=== PATIENT | female | born 1945 | race Caucasian/White ===

== ENCOUNTER 2023-08-04 11:29 | Outpatient (AMB) | payer SELFPAY ==
--- NOTE | 2023-08-04 11:38 | MHC.OFFVISCO ---
Intake Intake Visit Reasons: Anticoagulation It Associate Required: No Allergies pantoprazole [From Protonix] Allergy (Severe, Verified 08/04/23 11:34) Palpitations Is last menstrual period known: No Post menopausal: Yes Patient : No (2 daughters and 5 grandchildren) Nursing Note Pt came 2 hours early to appt- able to complete 1/2 - will discuss no show policy next visit able to obtain med hx, review meds, and ssx of bleeding and clotting, education folder given, [facility] will complete education next visit INR: 1.6 out of therapeutic range- she ate more broccoli than usual Medications and supplements reviewed Diet: Foods that can effect the INR discussed and food list reviewed with good understanding, will review next visit Denies any signs and symptoms of bleeding or bruising or clotting. Bleeding, bruising, clotting discussed Nutritional guidance given - avoid greens today and tomorrow, eat foods to help raise the INR Dose: current dose 2.5mg x 5 days/ week- osmani increase dose to 2.5mg x 6 days. 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 Illness/Depression: Yes (pt states no - md hx states yes ) Is last menstrual period known: No Post menopausal: Yes Patient : No (2 daughters and 5 grandchildren) Surgeries: gladder bladder removal 64 years old Afib age 50s after reaction to medication protonix Other: A+O x 3, resp easy and unlabored, has left facial droop from injury in in her younger years, no s/sx of bleeding or bruising or clotting. walks daily and appears much younger than her age. Anti-Coag. Education Record Teaching Recipient: Patient What is the easiest way to learn: Reading, Listening and Education Packet It Associate Required: No Readiness To Learn: Excellent Teaching Methods: Discussion, Handout, Protocol and Teach Back Education Intervention/Brief Description of Teaching 1. Able to state reason for taking Warfarin: Yes 2. Able to state Pain Management techniques: Yes 3. Able to state action of Warfarin.: Yes Able to state current dose, pill color, how and when Warfarin to be taken: Yes Able to identify signs of bleeding &/or clotting: Yes 4. Able to identify need to keep diet consistent in regard to vitamin K intake: Yes Able to state restriction on alcohol: Yes 5. Able to state need for compliance with PT/INR testing: Yes Describes rationale for carrying ID and wearing Medic Alert bracelet: Yes Patient instructed to monitor for excess bruising or signs/symptoms of clotting or bleeding: Yes 6. Able to state that there are drugs that interact with Warfin: Yes 7. Able to state the need to seek medical attention when illness/injury occur.: Yes Describes the need to avoid activities with high risk of injury: Yes 8. Able to state duration of treatment: Yes 9. Demonstrates understanding of notifying all providers of pending dental surgical, or other invasive procedures: Yes 10. Able to state Home Care instructions Questionnaires HAS-BLED Does the patient had uncontrolled Hypertension?: No Does the patient have renal disease?: No Does the patient have liver disease?: No Does the patient have a history of stroke?: No Has the patient had major bleeding or predisposition to bleeding?: No Does the patient have labile INRs?: Yes Is the patient over 65 years of age?: Yes Is the patient on medications that gives them a predisposition to bleeding?: Yes Does the patient use alcohol?: No HAS-BLED Score: 3 CHADSVASC Age: 75 or over Gender: Female Does the patient have a history of CHF?: No Does the patient have a history of Hypertension?: Yes Does the patient have a history of Stroke/TIA/Thromboembolism?: No Does the patient have a history of Vascular Disease (prior RI, PAD or aortic plaque)?: No Does the patient have a history of Diabetes?: No CHADS VACS Score: 4 Gibson Prediction Score Rsk VTE Active Cancer: No Previous VTE, excluding superficial vein thrombosis: No Reduced mobility: No Already known Thrombophilic Condition: No With-in last month Trauma and/or Surgery: No Elderly 70 year or older: Yes Heart and/or Respiratory Failure: No Acute Myocardial infarction and/or Ischemic Stroke: No Acute Infection and/or Rheumatologic Disorder: No Obesity (BMI 30 or greater): No Ongoing Hormonal Treatment: No Score: 1 Gibson Score less than 4; Low Risk of VTE Gibson Score 4 or greater; High Risk of VTE Coding Level of Care Code New Patient Level 2 Diagnoses Current use of anticoagulant therapy Z79.01 Time Spent (min) 60 Comment insuarnce information obtained + education Results AMB INR Fingerstick AMB INR Fingerstick 1.6 Last Edit by Archana Marvin RN on 08/04/23 11:53 MANUAL ENTRY Assessment & Plan Assessment & Plan (1) Current use of anticoagulant therapy: Code(s): 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
[2023-08-05 11:14] LABS: Prothrombin Time Whole Bld POC 19.5 sec (11.1-13.5); ~PT, ~INR - Anti Coag Clinic 1.6 (0.9-1.1)
== END 2023-08-04 15:55 | disposition home or self-care (01) ==
LOC: HO.ACS 11:29
PROVIDERS: PCP Student in an Organized Health Care Education/Training Program; Visit Provider Internal Medicine
DX: Z79.01 Long term (current) use of anticoagulants (principal)

== ENCOUNTER → 2023-08-04 11:29 | Outpatient (BNVA) | payer MEDICARE, MEDICAID, SELFPAY | PROVIDERS: PCP Student in an Organized Health Care Education/Training Program; Visit Provider Internal Medicine | DX: I48.0 Paroxysmal atrial fibrillation (principal); Z79.01 Long term (current) use of anticoagulants; Z51.81 Encounter for therapeutic drug level monitoring | CPT/HCPCS: 85610; 99202 ==

== ENCOUNTER 2023-08-10 13:02 | Outpatient (AMB) | payer MEDICAID, OTHER, SELFPAY ==
[2023-08-10 13:11] LABS: Prothrombin Time Whole Bld POC 25.3 sec (11.1-13.5); ~PT, ~INR - Anti Coag Clinic 2.1 (0.9-1.1)
--- NOTE | 2023-08-10 13:59 | MHC.OFFVISCO ---
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 Medications and supplements reviewed- STOPPING AMILODIPINE AND STARTING CLONIDINE Completed Education booklet reviewed and VS obtained and patient agreements signed and pt verb understanding of instructions given. No changes in health, diet, medications, or supplements, Denies any signs and symptoms of bleeding or bruising or clotting. Bleeding, bruising, clotting discussed Nutritional guidance given - review food list weekly, eat a mix of fruits and vegetables Dose: 2.5mg daily x 6 days/ week - may need 7 days/ week F/U INR: 1 week Patient verbalizes understanding of instructions given Anti-Coag Initial Assessment Social Hx Patient Tobacco Use Status: Never used Tobacco alcohol intake: never Cardiovascular Hx: HTN, Arrhythmias, Rheumatic Fever (as child), Varicose Veins (no problems) and Other (endocarditis) Lung Disease HX: DVT/PE Musculoskeletal Hx: Other (left facial droop from injury in her younger years ) GI Hx: Hemorrhoids (small amt ) and Other (cholecystectomy) Cancer HX: No Psych. 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
[2023-08-10 15:26] VITALS: BP 118/72
[2023-08-10 15:27] VITALS: PULSE 72
== END 2023-08-10 13:58 | disposition home or self-care (01) ==
LOC: HO.ACS 13:02
PROVIDERS: PCP Student in an Organized Health Care Education/Training Program; Visit Provider Internal Medicine
DX: Z79.01 Long term (current) use of anticoagulants (principal)

== ENCOUNTER → 2023-08-10 13:02 | Outpatient (BNVA) | payer OTHER, MEDICAID, SELFPAY | PROVIDERS: PCP Student in an Organized Health Care Education/Training Program; Visit Provider Internal Medicine | DX: I48.20 Chronic atrial fibrillation, unspecified (principal); Z79.01 Long term (current) use of anticoagulants; Z51.81 Encounter for therapeutic drug level monitoring | CPT/HCPCS: 85610; 99211 ==

== ENCOUNTER 2023-08-18 13:32 | Outpatient (AMB) | payer OTHER, SELFPAY ==
[2023-08-18 13:38] LABS: Prothrombin Time Whole Bld POC 38.2 sec (11.1-13.5); ~PT, ~INR - Anti Coag Clinic 3.2 (0.9-1.1)
--- NOTE | 2023-08-18 13:49 | MHC.OFFVISCO ---
Intake Intake Visit Reasons: Anticoagulation Allergies pantoprazole [From Protonix] Allergy (Severe, Verified 08/18/23 13:33) Palpitations Medication List - Last Reconciled 08/18/23 by Archana Marvin RN amlodipine 2.5 mg PO DAILY cholecalciferol (vitamin D3) 25 mcg PO DAILY clonidine 1 patch topical QWEEK metoprolol succinate ER (Toprol XL) 50 mg PO DAILY warfarin See Protocol 5 mg orally 2.5mg x 5 days / week; Nursing Note Pt had unusual bill for [facility] insurance was not in for some reason - finance office assisting with bill today INR 3.2?? out of therapeutic range Medications and supplements reviewed Patient status: Pt is well, she has not had her usual greens. will resume her weekly broccoli Medications or supplements: no changes Diet: good Denies any signs and symptoms of bleeding or clotting or unusual bruising Bleeding, bruising, clotting discussed Nutritional guidance given: review food list weekly, resume weekly greens Dose: 2.5mg x 6 days/ hold x 1 day F/U INR Date : 2 weeks ?? Patient verbalizing understanding of instructions given. Anti-Coag Initial Assessment Social Hx Patient Tobacco Use Status: Never used Tobacco alcohol intake: never Cardiovascular Hx: HTN, Arrhythmias, Rheumatic Fever (as child), Varicose Veins (no problems) and Other (endocarditis) Lung Disease HX: DVT/PE Musculoskeletal Hx: Other (left facial droop from injury in her younger years ) GI Hx: Hemorrhoids (small amt ) and Other (cholecystectomy) Cancer HX: No Psych. Illness/Depression: Yes (pt states no - md hx states yes ) Coding Level of Care Code Est Patient Level 1 Diagnoses Current use of anticoagulant therapy Z79.01 Assessment & Plan Assessment & Plan (1) Current use of anticoagulant therapy: Code(s): Z79.01 - alf (current) use of anticoagulants Category: Medical
== END 2023-08-18 13:52 | disposition home or self-care (01) ==
LOC: HO.ACS 13:32
PROVIDERS: PCP Student in an Organized Health Care Education/Training Program; Visit Provider Internal Medicine
DX: Z79.01 Long term (current) use of anticoagulants (principal)

== ENCOUNTER → 2023-08-18 13:32 | Outpatient (BNVA) | payer OTHER, SELFPAY | PROVIDERS: PCP Student in an Organized Health Care Education/Training Program; Visit Provider Internal Medicine | DX: I48.20 Chronic atrial fibrillation, unspecified (principal); Z51.81 Encounter for therapeutic drug level monitoring; Z79.01 Long term (current) use of anticoagulants | CPT/HCPCS: 85610; 99211 ==

== ENCOUNTER 2023-09-05 13:12 | Outpatient (AMB) | payer OTHER, SELFPAY ==
[2023-09-05 13:28] LABS: Prothrombin Time Whole Bld POC 35.2 sec (11.1-13.5); ~PT, ~INR - Anti Coag Clinic 2.9 (0.9-1.1)
--- NOTE | 2023-09-05 13:35 | MHC.OFFVISCO ---
Intake Intake Visit Reasons: Anticoagulation Allergies pantoprazole [From Protonix] Allergy (Severe, Verified 09/05/23 13:22) Palpitations Medication List - Last Reconciled 09/05/23 by Archana Marvin RN amlodipine 2.5 mg PO DAILY cholecalciferol (vitamin D3) 25 mcg PO DAILY clonidine 1 patch topical QWEEK metoprolol succinate ER (Toprol XL) 50 mg PO DAILY warfarin See Protocol 5 mg orally 2.5mg x 5 days / week; Nursing Note INR: 2.9 in therapeutic range Medications and supplements reviewed Ppt had sinus infection and was on antbx amoxicillin ( she was instructed to call with med changes) she held her warfarin x 1 day going back to her usual dose 2.5mg x 5 days holding wed and sat Denies any signs and symptoms of bleeding or bruising or clotting. Bleeding, bruising, clotting discussed Nutritional guidance given Dose: 2.5MG X 5 DAYS F/U INR: 2 weeks Patient verbalizes understanding of instructions given Anti-Coag Initial Assessment Social Hx Patient Tobacco Use Status: Never used Tobacco alcohol intake: never Cardiovascular Hx: HTN, Arrhythmias, Rheumatic Fever (as child), Varicose Veins (no problems) and Other (endocarditis) Lung Disease HX: DVT/PE Musculoskeletal Hx: Other (left facial droop from injury in her younger years ) GI Hx: Hemorrhoids (small amt ) and Other (cholecystectomy) Cancer HX: No Psych. 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
== END 2023-09-05 13:39 | disposition home or self-care (01) ==
LOC: HO.ACS 13:12
PROVIDERS: PCP Student in an Organized Health Care Education/Training Program; Visit Provider Internal Medicine
DX: Z79.01 Long term (current) use of anticoagulants (principal)

== ENCOUNTER → 2023-09-05 13:12 | Outpatient (BNVA) | payer OTHER, SELFPAY | PROVIDERS: PCP Student in an Organized Health Care Education/Training Program; Visit Provider Internal Medicine | DX: I48.20 Chronic atrial fibrillation, unspecified (principal); Z51.81 Encounter for therapeutic drug level monitoring; Z79.01 Long term (current) use of anticoagulants | CPT/HCPCS: 85610; 99211 ==

== ENCOUNTER 2023-09-20 13:34 | Outpatient (AMB) | payer OTHER, SELFPAY ==
--- NOTE | 2023-09-20 14:03 | MHC.OFFVISCO ---
Intake Intake Visit Reasons: Anticoagulation Allergies pantoprazole [From Protonix] Allergy (Severe, Verified 09/20/23 13:54) Palpitations Medication List - Last Reconciled 09/20/23 by Tonia Benitez RN amlodipine 2.5 mg PO DAILY cholecalciferol (vitamin D3) 25 mcg PO DAILY clonidine 1 patch topical QWEEK metoprolol succinate ER (Toprol XL) 50 mg PO DAILY warfarin See Protocol 5 mg orally 2.5mg x 5 days / week; Nursing Note INR: 3.0- in therapeutic range of 2-3 Medications and supplements reviewed- pt not taking clonidine patch due to issues with gas- instructed to notify md holloway pt states monitors blood pressure bid every day No changes in health, diet, medications, or supplements, Denies any signs and symptoms of bleeding or bruising or clotting. Bleeding, bruising, clotting discussed Nutritional guidance given - eat greens today Dose: 2.5mg x 5 F/U INR: 2 weeks Patient verbalizes understanding of instructions given Anti-Coag Initial Assessment Social Hx Patient Tobacco Use Status: Never used Tobacco alcohol intake: never Cardiovascular Hx: HTN, Arrhythmias, Rheumatic Fever (as child), Varicose Veins (no problems) and Other (endocarditis) Lung Disease HX: DVT/PE Musculoskeletal Hx: Other (left facial droop from injury in her younger years ) GI Hx: Hemorrhoids (small amt ) and Other (cholecystectomy) Cancer HX: No Psych. Illness/Depression: Yes (pt states no - md hx states yes ) Coding Level of Care Code Est Patient Level 1 Diagnoses Current use of anticoagulant therapy Z79.01 Assessment & Plan Assessment & Plan (1) Current use of anticoagulant therapy: Code(s): Z79.01 - intermediate (current) use of anticoagulants Category: Medical
[2023-09-20 14:05] LABS: Prothrombin Time Whole Bld POC 35.8 sec (11.1-13.5)
== END 2023-09-20 14:13 | disposition home or self-care (01) ==
LOC: HO.ACS 13:34
PROVIDERS: PCP Student in an Organized Health Care Education/Training Program; Visit Provider Internal Medicine
DX: Z79.01 Long term (current) use of anticoagulants (principal)

== ENCOUNTER → 2023-09-20 13:34 | Outpatient (BNVA) | payer OTHER, SELFPAY | PROVIDERS: PCP Student in an Organized Health Care Education/Training Program; Visit Provider Internal Medicine | DX: I48.20 Chronic atrial fibrillation, unspecified (principal); Z51.81 Encounter for therapeutic drug level monitoring; Z79.01 Long term (current) use of anticoagulants | CPT/HCPCS: 85610; 99211 ==

== ENCOUNTER 2023-10-04 13:01 | Outpatient (AMB) | payer OTHER, SELFPAY ==
[2023-10-04 13:29] LABS: Prothrombin Time Whole Bld POC 27.2 sec (11.1-13.5); ~PT, ~INR - Anti Coag Clinic 2.3 (0.9-1.1)
--- NOTE | 2023-10-04 13:29 | MHC.OFFVISCO ---
Intake Intake Visit Reasons: Anticoagulation Allergies pantoprazole [From Protonix] Allergy (Severe, Verified 10/04/23 13:22) Palpitations Medication List - Last Reconciled 10/04/23 by Tonia Benitez RN amlodipine 2.5 mg PO DAILY cholecalciferol (vitamin D3) 25 mcg PO DAILY clonidine 1 patch topical QWEEK metoprolol succinate ER (Toprol XL) 50 mg PO DAILY warfarin See Protocol 5 mg orally 2.5mg x 5 days / week; Nursing Note INR: 2.3- in therapeutic range of 2-3 Medications and supplements reviewed- not taking clonidine patch - box order person aware No changes in health, diet, medications, or supplements, Denies any signs and symptoms of bleeding or bruising or clotting. Bleeding, bruising, clotting discussed Nutritional guidance given Dose: cont same dosing 2.5mg x 5, holds on wed and sat pt ref warfarin pill strength change- states did not feel well on 2mg tablet F/U INR: pt req 3 weeks Patient verbalizes understanding of instructions given Anti-Coag Initial Assessment Social Hx Patient Tobacco Use Status: Never used Tobacco alcohol intake: never Cardiovascular Hx: HTN, Arrhythmias, Rheumatic Fever (as child), Varicose Veins (no problems) and Other (endocarditis) Lung Disease HX: DVT/PE Musculoskeletal Hx: Other (left facial droop from injury in her younger years ) GI Hx: Hemorrhoids (small amt ) and Other (cholecystectomy) Cancer HX: No Psych. 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
== END 2023-10-04 13:38 | disposition home or self-care (01) ==
LOC: HO.ACS 13:01
PROVIDERS: PCP Student in an Organized Health Care Education/Training Program; Visit Provider Internal Medicine
DX: Z79.01 Long term (current) use of anticoagulants (principal)

== ENCOUNTER → 2023-10-04 13:01 | Outpatient (BNVA) | payer OTHER, SELFPAY | PROVIDERS: PCP Student in an Organized Health Care Education/Training Program; Visit Provider Internal Medicine | DX: I48.20 Chronic atrial fibrillation, unspecified (principal); Z51.81 Encounter for therapeutic drug level monitoring; Z79.01 Long term (current) use of anticoagulants | CPT/HCPCS: 85610; 99211 ==

== ENCOUNTER 2023-10-25 13:03 | Outpatient (AMB) | payer OTHER, SELFPAY ==
[2023-10-25 13:10] LABS: Prothrombin Time Whole Bld POC 28.4 sec (11.1-13.5); ~PT, ~INR - Anti Coag Clinic 2.4 (0.9-1.1)
--- NOTE | 2023-10-25 13:17 | MHC.OFFVISCO ---
Intake Intake Visit Reasons: Anticoagulation Allergies pantoprazole [From Protonix] Allergy (Severe, Verified 10/25/23 13:04) Palpitations Medication List - Last Reconciled 10/25/23 by Beatriz Morrison RN amlodipine 2.5 mg PO DAILY cholecalciferol (vitamin D3) 25 mcg PO DAILY clonidine 1 patch topical QWEEK metoprolol succinate ER (Toprol XL) 50 mg PO DAILY warfarin See Protocol 5 mg orally 2.5mg x 5 days / week; Nursing Note INR: 2.4 in therapeutic range of 2-3 Medications and supplements reviewed: no changes No changes in health, diet, medications, or supplements, Denies any signs and symptoms of bleeding or bruising or clotting. Bleeding, bruising, clotting discussed Nutritional guidance given to continue to balance reds and greens Dose: resume usual dose of 2.5mg X 5 days but 0 on Tue and Tue F/U INR: 3 weeks Patient verbalizes understanding of instructions given Anti-Coag Initial Assessment Social Hx Patient Tobacco Use Status: Never used Tobacco alcohol intake: never Cardiovascular Hx: HTN, Arrhythmias, Rheumatic Fever (as child), Varicose Veins (no problems) and Other (endocarditis) Lung Disease HX: DVT/PE Musculoskeletal Hx: Other (left facial droop from injury in her younger years ) GI Hx: Hemorrhoids (small amt ) and Other (cholecystectomy) Cancer HX: No Psych. Illness/Depression: Yes (pt states no - md hx states yes ) Coding Level of Care Code Est Patient Level 1 Diagnoses Current use of anticoagulant therapy Z79.01 Results AMB INR Fingerstick AMB INR Fingerstick 2.4 Last Edit by Beatriz Morrison RN on 10/25/23 13:17 interface delay Assessment & Plan Assessment & Plan (1) Current use of anticoagulant therapy: Code(s): Z79.01 - [facility] (current) use of anticoagulants Category: Medical
== END 2023-10-25 13:21 | disposition home or self-care (01) ==
LOC: HO.ACS 13:03
PROVIDERS: PCP Student in an Organized Health Care Education/Training Program; Visit Provider Internal Medicine
DX: Z79.01 Long term (current) use of anticoagulants (principal)

== ENCOUNTER → 2023-10-25 13:03 | Outpatient (BNVA) | payer OTHER, SELFPAY | PROVIDERS: PCP Student in an Organized Health Care Education/Training Program; Visit Provider Internal Medicine | DX: I48.20 Chronic atrial fibrillation, unspecified (principal); Z51.81 Encounter for therapeutic drug level monitoring; Z79.01 Long term (current) use of anticoagulants | CPT/HCPCS: 85610; 99211 ==

== ENCOUNTER 2023-11-22 13:56 | Outpatient (AMB) | payer OTHER, SELFPAY ==
[2023-11-22 14:13] LABS: Prothrombin Time Whole Bld POC 41.8 sec (11.1-13.5); ~PT, ~INR - Anti Coag Clinic 3.5 (0.9-1.1)
--- NOTE | 2023-11-22 14:18 | MHC.OFFVISCO ---
Intake Intake Visit Reasons: Anticoagulation Allergies pantoprazole [From Protonix] Allergy (Severe, Verified 11/22/23 13:58) Palpitations Nursing Note INR 3.5?out of therapeutic range of 2-3 Pt states she took an extra dose this past week. She normally does not take any warfarin on Wednesdays and Saturdays but she took a dose this past Tuesday. Spoke to pt about having a pill box. She says she has one but doesn't use it and may start now. Medications and supplements reviewed Patient status: feels well Medications or supplements: no changes Diet: has been eating a lot of fruit lately Denies any signs and symptoms of bleeding or clotting or unusual bruising Bleeding, bruising, clotting discussed Nutritional guidance given: to have a serving of foods from the list that lowers the INR. Food list reviewed. Dose: hold today's dose of 2.5mg then resume usual dose of 2.5mg daily except for Wednesdays and Saturdays F/U INR Date : 2 weeks?? Patient verbalizing understanding of instructions given. Anti-Coag Initial Assessment Social Hx Patient Tobacco Use Status: Never used Tobacco alcohol intake: never Cardiovascular Hx: HTN, Arrhythmias, Rheumatic Fever (as child), Varicose Veins (no problems) and Other (endocarditis) Lung Disease HX: DVT/PE Musculoskeletal Hx: Other (left facial droop from injury in her younger years ) GI Hx: Hemorrhoids (small amt ) and Other (cholecystectomy) Cancer HX: No Psych. 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
== END 2023-11-22 14:27 | disposition home or self-care (01) ==
LOC: HO.ACS 13:56
PROVIDERS: PCP Student in an Organized Health Care Education/Training Program; Visit Provider Internal Medicine
DX: Z79.01 Long term (current) use of anticoagulants (principal)

== ENCOUNTER → 2023-11-22 13:56 | Outpatient (BNVA) | payer OTHER, SELFPAY | PROVIDERS: PCP Student in an Organized Health Care Education/Training Program; Visit Provider Internal Medicine | DX: I48.20 Chronic atrial fibrillation, unspecified (principal); Z51.81 Encounter for therapeutic drug level monitoring; Z79.01 Long term (current) use of anticoagulants | CPT/HCPCS: 85610; 99211 ==

== ENCOUNTER 2023-12-06 13:01 | Outpatient (AMB) | payer OTHER, SELFPAY ==
--- NOTE | 2023-12-06 13:15 | MHC.OFFVISCO ---
Intake Intake Visit Reasons: Anticoagulation Allergies pantoprazole [From Protonix] Allergy (Severe, Verified 12/06/23 13:04) Palpitations Medication List - Last Reconciled 12/06/23 by Beatriz Morrison RN amlodipine 2.5 mg PO DAILY cholecalciferol (vitamin D3) 25 mcg PO DAILY clonidine 1 patch topical QWEEK metoprolol succinate ER (Toprol XL) 75 mg PO DAILY warfarin See Protocol 5 mg orally 2.5mg x 5 days / week; Nursing Note INR: 1.8 in therapeutic range of 2-3 Medications and supplements reviewed No changes in health, diet, medications, or supplements, Denies any signs and symptoms of bleeding or bruising or clotting. Bleeding, bruising, clotting discussed Nutritional guidance given to avoid greens today and tomorrow and to have a serving of food from the list that raises the INR Dose: resume usual dose of 2.5mg X 5 days and NO Warfarin on Tue and Tue F/U INR: 2 weeks Patient verbalizes understanding of instructions given Anti-Coag Initial Assessment Social Hx Patient Tobacco Use Status: Never used Tobacco alcohol intake: never Cardiovascular Hx: HTN, Arrhythmias, Rheumatic Fever (as child), Varicose Veins (no problems) and Other (endocarditis) Lung Disease HX: DVT/PE Musculoskeletal Hx: Other (left facial droop from injury in her younger years ) GI Hx: Hemorrhoids (small amt ) and Other (cholecystectomy) Cancer HX: No Psych. 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
[2023-12-06 13:17] LABS: Prothrombin Time Whole Bld POC 21.6 sec (11.1-13.5); ~PT, ~INR - Anti Coag Clinic 1.8 (0.9-1.1)
== END 2023-12-06 13:18 | disposition home or self-care (01) ==
LOC: HO.ACS 13:01
PROVIDERS: PCP Student in an Organized Health Care Education/Training Program; Visit Provider Internal Medicine
DX: Z79.01 Long term (current) use of anticoagulants (principal)

== ENCOUNTER → 2023-12-06 13:01 | Outpatient (BNVA) | payer OTHER, SELFPAY | PROVIDERS: PCP Student in an Organized Health Care Education/Training Program; Visit Provider Internal Medicine | DX: I48.20 Chronic atrial fibrillation, unspecified (principal); Z51.81 Encounter for therapeutic drug level monitoring; Z79.01 Long term (current) use of anticoagulants | CPT/HCPCS: 85610; 99211 ==

== ENCOUNTER 2023-12-20 13:03 | Outpatient (AMB) | payer OTHER, SELFPAY ==
--- NOTE | 2023-12-20 13:08 | MHC.OFFVISCO ---
Intake Intake Visit Reasons: Anticoagulation Allergies pantoprazole [From Protonix] Allergy (Severe, Verified 12/20/23 13:04) Palpitations Medication List - Last Reconciled 12/20/23 by Tonia Benitez RN amlodipine 2.5 mg PO DAILY cholecalciferol (vitamin D3) 25 mcg PO DAILY clonidine 1 patch topical QWEEK metoprolol succinate ER (Toprol XL) 75 mg PO DAILY warfarin See Protocol 5 mg orally 2.5mg x 5 days / week; Nursing Note INR 3.5-?? out of therapeutic range of 2-3 Medications and supplements reviewed Patient status: no c.o Medications or supplements: no changes Diet: has had watermelon Denies any signs and symptoms of bleeding or clotting or unusual bruising Bleeding, bruising, clotting discussed Nutritional guidance given: eat greens to lower Dose: hold dose today, pt takes 2.5mg x 5 weekly pt ref to change warfarin pill strength as she states she did not feel well prev when it was changed F/U INR Date : ? 2 weeks Patient verbalizing understanding of instructions given. Anti-Coag Initial Assessment Social Hx Patient Tobacco Use Status: Never used Tobacco alcohol intake: never Cardiovascular Hx: HTN, Arrhythmias, Rheumatic Fever (as child), Varicose Veins (no problems) and Other (endocarditis) Lung Disease HX: DVT/PE Musculoskeletal Hx: Other (left facial droop from injury in her younger years ) GI Hx: Hemorrhoids (small amt ) and Other (cholecystectomy) Cancer HX: No Psych. Illness/Depression: Yes (pt states no - md hx states yes ) Coding Level of Care Code Est Patient Level 1 Diagnoses Current use of anticoagulant therapy Z79.01 Assessment & Plan Assessment & Plan (1) Current use of anticoagulant therapy: Code(s): Z79.01 - long-term (current) use of anticoagulants Category: Medical
[2023-12-20 13:09] LABS: Prothrombin Time Whole Bld POC 41.9 sec (11.1-13.5); ~PT, ~INR - Anti Coag Clinic 3.5 (0.9-1.1)
== END 2023-12-20 13:16 | disposition home or self-care (01) ==
LOC: HO.ACS 13:03
PROVIDERS: PCP Student in an Organized Health Care Education/Training Program; Visit Provider Internal Medicine
DX: Z79.01 Long term (current) use of anticoagulants (principal)

== ENCOUNTER → 2023-12-20 13:03 | Outpatient (BNVA) | payer OTHER, SELFPAY | PROVIDERS: PCP Student in an Organized Health Care Education/Training Program; Visit Provider Internal Medicine | DX: I48.20 Chronic atrial fibrillation, unspecified (principal); Z51.81 Encounter for therapeutic drug level monitoring; Z79.01 Long term (current) use of anticoagulants | CPT/HCPCS: 85610; 99211 ==

== ENCOUNTER 2024-01-03 13:12 | Outpatient (AMB) | payer OTHER, SELFPAY ==
[2024-01-03 13:24] LABS: Prothrombin Time Whole Bld POC 17.3 sec (11.1-13.5); ~PT, ~INR - Anti Coag Clinic 1.4 (0.9-1.1)
--- NOTE | 2024-01-03 13:31 | MHC.OFFVISCO ---
Intake Intake Visit Reasons: Anticoagulation Allergies pantoprazole [From Protonix] Allergy (Severe, Verified 01/03/24 13:13) Palpitations Medication List - Last Reconciled 01/03/24 by Archana Marvin RN amlodipine 2.5 mg PO DAILY cholecalciferol (vitamin D3) 25 mcg PO DAILY clonidine 1 patch topical QWEEK metoprolol succinate ER (Toprol XL) 75 mg PO DAILY warfarin See Protocol 5 mg orally 2.5mg x 5 days / week; Nursing Note INR: 1.4 OUT OF therapeutic range Medications and supplements reviewed Pt missed a dose tuesday and just ate [employer] food buffet today Denies any signs and symptoms of bleeding or bruising or clotting. Bleeding, bruising, clotting discussed Nutritional guidance given- avoid greens today and tomorrow Dose: 5mg today ) 2.5mg now and then 6pm tonight at your usual time) then resume usual dose 2.5mg x 5 days /week F/U INR: 6 days per pt request- refused tuesday appt s/sx of stroke explained and pt to go to ER with any symptoms t/c to PCP spoke with Xochitl Ramires MA to convey msg of pt status to PCP Patient verbalizes understanding of instructions given Anti-Coag Initial Assessment Social Hx Patient Tobacco Use Status: Never used Tobacco alcohol intake: never Cardiovascular Hx: HTN, Arrhythmias, Rheumatic Fever (as child), Varicose Veins (no problems) and Other (endocarditis) Lung Disease HX: DVT/PE Musculoskeletal Hx: Other (left facial droop from injury in her younger years ) GI Hx: Hemorrhoids (small amt ) and Other (cholecystectomy) Cancer HX: No Psych. Illness/Depression: Yes (pt states no - md hx states yes ) Coding Level of Care Code Est Patient Level 1 Diagnoses Current use of anticoagulant therapy Z79.01 Results AMB INR Fingerstick AMB INR Fingerstick 1.4 Last Edit by Archana Marvin RN on 01/03/24 13:28 MANAUL ENTRY Assessment & Plan Assessment & Plan (1) Current use of anticoagulant therapy: Code(s): Z79.01 - correction (current) use of anticoagulants Category: Medical
== END 2024-01-03 13:39 | disposition home or self-care (01) ==
LOC: HO.ACS 13:12
PROVIDERS: PCP Student in an Organized Health Care Education/Training Program; Visit Provider Internal Medicine
DX: Z79.01 Long term (current) use of anticoagulants (principal)

== ENCOUNTER → 2024-01-03 13:12 | Outpatient (BNVA) | payer OTHER, SELFPAY | PROVIDERS: PCP Student in an Organized Health Care Education/Training Program; Visit Provider Internal Medicine | DX: I48.20 Chronic atrial fibrillation, unspecified (principal); Z51.81 Encounter for therapeutic drug level monitoring; Z79.01 Long term (current) use of anticoagulants | CPT/HCPCS: 85610; 99211 ==

== ENCOUNTER 2024-01-10 13:22 | Outpatient (AMB) | payer OTHER, SELFPAY ==
--- NOTE | 2024-01-10 13:31 | MHC.OFFVISCO ---
Intake Intake Visit Reasons: Anticoagulation Allergies pantoprazole [From Protonix] Allergy (Severe, Verified 01/10/24 13:27) Palpitations Medication List - Last Reconciled 01/10/24 by Tonia Benitez RN amlodipine 2.5 mg PO DAILY cholecalciferol (vitamin D3) 25 mcg PO DAILY clonidine 1 patch topical QWEEK metoprolol succinate ER (Toprol XL) 75 mg PO DAILY warfarin See Protocol 5 mg orally 2.5mg x 5 days / week; Nursing Note INR 4.0-? out of therapeutic range of 2-3 Medications and supplements reviewed Patient status: pt dosed self Medications or supplements: no changes Diet: appetite is good Denies any signs and symptoms of bleeding or clotting or unusual bruising Bleeding, bruising, clotting discussed Nutritional guidance given: eat greens to lower Dose: hold warfarin today then reg dosing- 2.5mg x 5- pt instructed to following dosing management sheet F/U INR Date : 1 week? Patient verbalizing understanding of instructions given. pt states dosed self and took 5mg on last week and took 2.5mg on tue and sat as her prev inr was 1.4 Anti-Coag Initial Assessment Social Hx Patient Tobacco Use Status: Never used Tobacco alcohol intake: never Cardiovascular Hx: HTN, Arrhythmias, Rheumatic Fever (as child), Varicose Veins (no problems) and Other (endocarditis) Lung Disease HX: DVT/PE Musculoskeletal Hx: Other (left facial droop from injury in her younger years ) GI Hx: Hemorrhoids (small amt ) and Other (cholecystectomy) Cancer HX: No Psych. Illness/Depression: Yes (pt states no - md hx states yes ) Coding Level of Care Code Est Patient Level 1 Diagnoses Current use of anticoagulant therapy Z79.01 Assessment & Plan Assessment & Plan (1) Current use of anticoagulant therapy: Code(s): Z79.01 - group home (current) use of anticoagulants Category: Medical
[2024-01-10 13:33] LABS: Prothrombin Time Whole Bld POC 48.4 sec (11.1-13.5)
== END 2024-01-10 13:57 | disposition home or self-care (01) ==
LOC: HO.ACS 13:22
PROVIDERS: PCP Student in an Organized Health Care Education/Training Program; Visit Provider Internal Medicine
DX: Z79.01 Long term (current) use of anticoagulants (principal)

== ENCOUNTER → 2024-01-10 13:22 | Outpatient (BNVA) | payer OTHER, SELFPAY | PROVIDERS: PCP Student in an Organized Health Care Education/Training Program; Visit Provider Internal Medicine | DX: I48.20 Chronic atrial fibrillation, unspecified (principal); Z51.81 Encounter for therapeutic drug level monitoring; Z79.01 Long term (current) use of anticoagulants | CPT/HCPCS: 85610; 99211 ==

== ENCOUNTER 2024-01-20 13:01 | Outpatient (AMB) | payer OTHER, SELFPAY ==
--- NOTE | 2024-01-20 13:43 | MHC.OFFVISCO ---
Intake Intake Visit Reasons: Anticoagulation Allergies pantoprazole [From Protonix] Allergy (Severe, Verified 01/20/24 13:30) Palpitations Medication List - Last Reconciled 01/20/24 by Archana Marvin RN amlodipine 2.5 mg PO DAILY cholecalciferol (vitamin D3) 25 mcg PO DAILY clonidine 1 patch topical QWEEK metoprolol succinate ER (Toprol XL) 75 mg PO DAILY warfarin See Protocol 5 mg orally 2.5mg x 5 days / week; Nursing Note INR: 2.3 in therapeutic range- pt states she is feeling better - she URI - possible covid not sure but is feeling better now Medications and supplements reviewed No changes in health, diet, medications, or supplements, Denies any signs and symptoms of bleeding or bruising or clotting. Bleeding, bruising, clotting discussed Nutritional guidance given - Eat a mix of fruits and vegetables Dose: 2.5mg x 5 days F/U INR: 3 weeks Patient verbalizes understanding of instructions given Anti-Coag Initial Assessment Social Hx Patient Tobacco Use Status: Never used Tobacco alcohol intake: never Cardiovascular Hx: HTN, Arrhythmias, Rheumatic Fever, Varicose Veins and Other Lung Disease HX: DVT/PE Musculoskeletal Hx: Other GI Hx: Hemorrhoids and Other Cancer HX: No Psych. Illness/Depression: Yes (pt states no - md hx states yes ) Coding Level of Care Code Est Patient Level 1 Diagnoses Current use of anticoagulant therapy Z79.01 Results AMB INR Fingerstick AMB INR Fingerstick 2.3 Last Edit by Archana Marvin RN on 01/20/24 13:36 INTERFACING FAILURE MANUAL ENTRY Assessment & Plan Assessment & Plan (1) Current use of anticoagulant therapy: Code(s): Z79.01 - prison (current) use of anticoagulants Category: Medical
[2024-01-20 14:02] LABS: Prothrombin Time Whole Bld POC 28.2 sec (11.1-13.5); ~PT, ~INR - Anti Coag Clinic 2.3 (0.9-1.1)
== END 2024-01-20 13:45 | disposition home or self-care (01) ==
LOC: HO.ACS 13:01
PROVIDERS: PCP Student in an Organized Health Care Education/Training Program; Visit Provider Internal Medicine
DX: Z79.01 Long term (current) use of anticoagulants (principal)

== ENCOUNTER → 2024-01-20 13:01 | Outpatient (BNVA) | payer OTHER, SELFPAY | PROVIDERS: PCP Student in an Organized Health Care Education/Training Program; Visit Provider Internal Medicine | DX: I48.20 Chronic atrial fibrillation, unspecified (principal); Z51.81 Encounter for therapeutic drug level monitoring; Z79.01 Long term (current) use of anticoagulants | CPT/HCPCS: 85610; 99211 ==

== ENCOUNTER 2024-02-09 13:21 | Outpatient (AMB) | payer OTHER, SELFPAY ==
[2024-02-09 13:47] LABS: Prothrombin Time Whole Bld POC 32.7 sec (11.1-13.5); ~PT, ~INR - Anti Coag Clinic 2.7 (0.9-1.1)
--- NOTE | 2024-02-09 13:55 | MHC.OFFVISCO ---
Intake Intake Visit Reasons: Anticoagulation Allergies pantoprazole [From Protonix] Allergy (Severe, Verified 02/09/24 13:41) Palpitations Medication List - Last Reconciled 02/09/24 by Archana Marvin RN amlodipine 5 mg PO BID cholecalciferol (vitamin D3) 25 mcg PO DAILY clonidine 1 patch topical QWEEK metoprolol succinate ER (Toprol XL) 75 mg PO DAILY warfarin See Protocol 5 mg orally 2.5mg x 5 days / week; Nursing Note INR: 2.7 in therapeutic range Medications and supplements reviewed No changes in health, diet, medications, or supplements, Denies any signs and symptoms of bleeding or bruising or clotting. Bleeding, bruising, clotting discussed Nutritional guidance given Dose: 2.5MG X 5 DAYS F/U INR: 3 WEEKS Patient verbalizes understanding of instructions given Anti-Coag Initial Assessment Social Hx Patient Tobacco Use Status: Never used Tobacco alcohol intake: never Cardiovascular Hx: HTN, Arrhythmias, Rheumatic Fever, Varicose Veins and Other Lung Disease HX: DVT/PE Musculoskeletal Hx: Other GI Hx: Hemorrhoids and Other Cancer HX: No Psych. 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
== END 2024-02-09 13:58 | disposition home or self-care (01) ==
LOC: HO.ACS 13:21
PROVIDERS: PCP Student in an Organized Health Care Education/Training Program; Visit Provider Internal Medicine
DX: Z79.01 Long term (current) use of anticoagulants (principal)

== ENCOUNTER → 2024-02-09 13:21 | Outpatient (BNVA) | payer OTHER, SELFPAY | PROVIDERS: PCP Student in an Organized Health Care Education/Training Program; Visit Provider Internal Medicine | DX: I48.20 Chronic atrial fibrillation, unspecified (principal); Z79.01 Long term (current) use of anticoagulants; Z51.81 Encounter for therapeutic drug level monitoring | CPT/HCPCS: 85610; 99211 ==

== ENCOUNTER 2024-03-05 13:03 | Outpatient (AMB) | payer OTHER, SELFPAY ==
--- NOTE | 2024-03-05 13:22 | MHC.OFFVISCO ---
Intake Intake Visit Reasons: Anticoagulation Allergies pantoprazole [From Protonix] Allergy (Severe, Verified 03/05/24 13:06) Palpitations Medication List - Last Reconciled 03/05/24 by Archana Marvin RN amlodipine 5 mg PO BID cholecalciferol (vitamin D3) 25 mcg PO DAILY clonidine 1 patch topical QWEEK docusate sodium 100 mg PO BID PRN metoprolol succinate ER (Toprol XL) 75 mg PO DAILY warfarin See Protocol 5 mg orally 2.5mg x 5 days / week; Nursing Note INR: 1.9 ALMOST in therapeutic range- JUST ATE BROCCOLI WITH IRISH FOOD (MAY LOWER INR ) Medications and supplements reviewed STARTING MVI WITH MINERALS ONLY FEWS DAYS A WEEK No changes in health, diet, medications, Denies any signs and symptoms of bleeding or bruising or clotting. Bleeding, bruising, clotting discussed Nutritional guidance given - AVOID GREENS X 3 DASY Dose: 2.5MG X 5 DAYS F/U INR: 3 WEEKS Patient verbalizes understanding of instructions given Anti-Coag Initial Assessment Social Hx Patient Tobacco Use Status: Never used Tobacco alcohol intake: never Cardiovascular Hx: HTN, Arrhythmias, Rheumatic Fever, Varicose Veins and Other Lung Disease HX: DVT/PE Musculoskeletal Hx: Other GI Hx: Hemorrhoids and Other Cancer HX: No Psych. 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
[2024-03-05 13:25] LABS: Prothrombin Time Whole Bld POC 23.4 sec (11.1-13.5); ~PT, ~INR - Anti Coag Clinic 1.9 (0.9-1.1)
== END 2024-03-05 13:24 | disposition home or self-care (01) ==
LOC: HO.ACS 13:03
PROVIDERS: PCP Student in an Organized Health Care Education/Training Program; Visit Provider Internal Medicine
DX: Z79.01 Long term (current) use of anticoagulants (principal)

== ENCOUNTER → 2024-03-05 13:03 | Outpatient (BNVA) | payer OTHER, SELFPAY | PROVIDERS: PCP Student in an Organized Health Care Education/Training Program; Visit Provider Internal Medicine | DX: I48.20 Chronic atrial fibrillation, unspecified (principal); Z79.01 Long term (current) use of anticoagulants; Z51.81 Encounter for therapeutic drug level monitoring | CPT/HCPCS: 85610; 99211 ==

== ENCOUNTER 2024-03-26 13:00 | Outpatient (AMB) | payer OTHER, SELFPAY ==
[2024-03-26 13:13] LABS: Prothrombin Time Whole Bld POC 22.5 sec (11.1-13.5); ~PT, ~INR - Anti Coag Clinic 1.9 (0.9-1.1)
--- NOTE | 2024-03-26 13:21 | MHC.OFFVISCO ---
Intake Intake Visit Reasons: Anticoagulation Allergies pantoprazole [From Protonix] Allergy (Severe, Verified 03/26/24 13:05) Palpitations Medication List - Last Reconciled 03/26/24 by Beatriz Morrison RN amlodipine 5 mg PO BID cholecalciferol (vitamin D3) 25 mcg PO DAILY docusate sodium 100 mg PO BID PRN metoprolol succinate ER (Toprol XL) 75 mg PO DAILY warfarin See Protocol 5 mg orally 2.5mg x 5 days / week; Nursing Note INR 1.9?out of therapeutic range of 2-3 Medications and supplements reviewed Patient status: feels well Medications or supplements: no changes Diet: usual diet for pt Denies any signs and symptoms of bleeding or clotting or unusual bruising Bleeding, bruising, clotting discussed Nutritional guidance given: to have a serving of food that raises the INR. Food list discussed. Dose: continue same dose of 2.5mg X 5 days and 0mg X 2 days F/U INR Date : 3 weeks Patient verbalizing understanding of instructions given. Anti-Coag Initial Assessment Social Hx Patient Tobacco Use Status: Never used Tobacco alcohol intake: never Cardiovascular Hx: HTN, Arrhythmias, Rheumatic Fever, Varicose Veins and Other Lung Disease HX: DVT/PE Musculoskeletal Hx: Other GI Hx: Hemorrhoids and Other Cancer HX: No Psych. Illness/Depression: Yes (pt states no - md hx states yes ) Coding Level of Care Code Est Patient Level 1 Diagnoses Current use of anticoagulant therapy Z79.01 Assessment & Plan Assessment & Plan (1) Current use of anticoagulant therapy: Code(s): Z79.01 - [facility] (current) use of anticoagulants Category: Medical
== END 2024-03-26 13:24 | disposition home or self-care (01) ==
LOC: HO.ACS 13:00
PROVIDERS: PCP Student in an Organized Health Care Education/Training Program; Visit Provider Internal Medicine
DX: Z79.01 Long term (current) use of anticoagulants (principal)

== ENCOUNTER → 2024-03-26 13:00 | Outpatient (BNVA) | payer OTHER, SELFPAY | PROVIDERS: PCP Student in an Organized Health Care Education/Training Program; Visit Provider Internal Medicine | DX: I48.20 Chronic atrial fibrillation, unspecified (principal); Z79.01 Long term (current) use of anticoagulants; Z51.81 Encounter for therapeutic drug level monitoring | CPT/HCPCS: 85610; 99211 ==

== ENCOUNTER 2024-04-16 13:02 | Outpatient (AMB) | payer OTHER, SELFPAY ==
--- NOTE | 2024-04-16 13:09 | MHC.OFFVISCO ---
Intake Intake Visit Reasons: Anticoagulation Allergies pantoprazole [From Protonix] Allergy (Severe, Verified 04/16/24 13:03) Palpitations Medication List - Last Reconciled 04/16/24 by Tonia Benitez RN amlodipine 5 mg PO BID cholecalciferol (vitamin D3) 25 mcg PO DAILY docusate sodium 100 mg PO BID PRN metoprolol succinate ER (Toprol XL) 75 mg PO DAILY warfarin See Protocol 5 mg orally 2.5mg x 5 days / week; Nursing Note INR: 2.1- in therapeutic range of 2-3 pt unsure if she missed a dose last week Medications and supplements reviewed No changes in health, diet, medications, or supplements, Denies any signs and symptoms of bleeding or bruising or clotting. Bleeding, bruising, clotting discussed Nutritional guidance given Dose: 2.5mg x 5, none on tue and tue F/U INR: 3 weeks Patient verbalizes understanding of instructions given Anti-Coag Initial Assessment Social Hx Patient Tobacco Use Status: Never used Tobacco alcohol intake: never Cardiovascular Hx: HTN, Arrhythmias, Rheumatic Fever, Varicose Veins and Other Lung Disease HX: DVT/PE Musculoskeletal Hx: Other GI Hx: Hemorrhoids and Other Cancer HX: No Psych. Illness/Depression: Yes (pt states no - md hx states yes ) Coding Level of Care Code Est Patient Level 1 Diagnoses Current use of anticoagulant therapy Z79.01 Assessment & Plan Assessment & Plan (1) Current use of anticoagulant therapy: Code(s): Z79.01 - prison (current) use of anticoagulants Category: Medical
[2024-04-16 13:10] LABS: ~PT, ~INR - Anti Coag Clinic 2.1 (0.9-1.1)
== END 2024-04-16 13:15 | disposition home or self-care (01) ==
LOC: HO.ACS 13:02
PROVIDERS: PCP Student in an Organized Health Care Education/Training Program; Visit Provider Internal Medicine
DX: Z79.01 Long term (current) use of anticoagulants (principal)

== ENCOUNTER → 2024-04-16 13:02 | Outpatient (BNVA) | payer OTHER, SELFPAY | PROVIDERS: PCP Student in an Organized Health Care Education/Training Program; Visit Provider Internal Medicine | DX: I48.20 Chronic atrial fibrillation, unspecified (principal); Z79.01 Long term (current) use of anticoagulants; Z51.81 Encounter for therapeutic drug level monitoring | CPT/HCPCS: 85610; 99211 ==

== ENCOUNTER 2024-05-08 12:59 | Outpatient (AMB) | payer OTHER, SELFPAY ==
[2024-05-08 13:26] LABS: Prothrombin Time Whole Bld POC 29.2 sec (11.1-13.5); ~PT, ~INR - Anti Coag Clinic 2.4 (0.9-1.1)
--- NOTE | 2024-05-08 13:33 | MHC.OFFVISCO ---
Intake Intake Visit Reasons: Anticoagulation Allergies pantoprazole [From Protonix] Allergy (Severe, Verified 05/08/24 13:21) Palpitations Medication List - Last Reconciled 05/08/24 by Beatriz Morrison RN amlodipine 5 mg PO BID cholecalciferol (vitamin D3) 25 mcg PO DAILY docusate sodium 100 mg PO BID PRN metoprolol succinate ER (Toprol XL) 75 mg PO DAILY warfarin See Protocol 5 mg orally 2.5mg x 5 days / week; Nursing Note INR: 2.1 in therapeutic range of 2-3 Medications and supplements reviewed No changes in health, diet, medications, or supplements, Denies any signs and symptoms of bleeding or bruising or clotting. Bleeding, bruising, clotting discussed Nutritional guidance given Dose: 2.5mg X 5 days. None on Tue and Tue F/U INR: 3 weeks Patient verbalizes understanding of instructions given Anti-Coag Initial Assessment Social Hx Patient Tobacco Use Status: Never used Tobacco alcohol intake: never Cardiovascular Hx: HTN, Arrhythmias, Rheumatic Fever, Varicose Veins and Other Lung Disease HX: DVT/PE Musculoskeletal Hx: Other GI Hx: Hemorrhoids and Other Cancer HX: No Psych. 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
== END 2024-05-08 13:37 | disposition home or self-care (01) ==
LOC: HO.ACS 12:59
PROVIDERS: PCP Student in an Organized Health Care Education/Training Program; Visit Provider Internal Medicine
DX: Z79.01 Long term (current) use of anticoagulants (principal)

== ENCOUNTER → 2024-05-08 12:59 | Outpatient (BNVA) | payer OTHER, SELFPAY | PROVIDERS: PCP Student in an Organized Health Care Education/Training Program; Visit Provider Internal Medicine | DX: I48.20 Chronic atrial fibrillation, unspecified (principal); Z79.01 Long term (current) use of anticoagulants; Z51.81 Encounter for therapeutic drug level monitoring | CPT/HCPCS: 85610; 99211 ==

== ENCOUNTER 2024-06-01 13:00 | Outpatient (AMB) | payer OTHER, SELFPAY ==
[2024-06-01 13:23] LABS: Prothrombin Time Whole Bld POC 16.7 sec (11.1-13.5); ~PT, ~INR - Anti Coag Clinic 1.4 (0.9-1.1)
--- NOTE | 2024-06-01 13:26 | MHC.OFFVISCO ---
Intake Intake Visit Reasons: Anticoagulation Allergies pantoprazole [From Protonix] Allergy (Severe, Verified 06/01/24 13:19) Palpitations Medication List - Last Reconciled 06/01/24 by Beatriz Morrison RN amlodipine 5 mg PO BID cholecalciferol (vitamin D3) 25 mcg PO DAILY docusate sodium 100 mg PO BID PRN metoprolol succinate ER (Toprol XL) 75 mg PO DAILY warfarin See Protocol 5 mg orally 2.5mg x 5 days / week; Nursing Note INR: 1.4? out of therapeutic range of 2-3 Pt states she missed a dose yesterday. Medications and supplements reviewed Patient status: no change Medications or supplements: no changes Diet: as usual Denies any signs and symptoms of bleeding or clotting or unusual bruising Bleeding, bruising, clotting discussed Nutritional guidance given: to avoid greens til retest. Dose: 5mg today, then usual dose of 2.5mg until next retest date of 06/05/24 F/U INR Date : 06/05/24?? Patient verbalizing understanding of instructions given. T/C to Dr Ornelas and msg given to secretary receptionist with critical INR and dosing plan and retest date. Anti-Coag Initial Assessment Social Hx Patient Tobacco Use Status: Never used Tobacco alcohol intake: never Cardiovascular Hx: HTN, Arrhythmias, Rheumatic Fever, Varicose Veins and Other Lung Disease HX: DVT/PE Musculoskeletal Hx: Other GI Hx: Hemorrhoids and Other Cancer HX: No Psych. Illness/Depression: Yes (pt states no - md hx states yes ) Coding Level of Care Code Est Patient Level 1 Diagnoses Current use of anticoagulant therapy Z79.01 Results AMB INR Fingerstick AMB INR Fingerstick 1.4 Last Edit by Beatriz Morrison RN on 06/01/24 13:22 interface delay Assessment & Plan Assessment & Plan (1) Current use of anticoagulant therapy: Code(s): Z79.01 - [facility] (current) use of anticoagulants Category: Medical
== END 2024-06-01 13:42 | disposition home or self-care (01) ==
LOC: HO.ACS 13:00
PROVIDERS: PCP Student in an Organized Health Care Education/Training Program; Visit Provider Internal Medicine
DX: Z79.01 Long term (current) use of anticoagulants (principal)

== ENCOUNTER → 2024-06-01 13:00 | Outpatient (BNVA) | payer OTHER, SELFPAY | PROVIDERS: PCP Student in an Organized Health Care Education/Training Program; Visit Provider Internal Medicine | DX: I48.20 Chronic atrial fibrillation, unspecified (principal); Z79.01 Long term (current) use of anticoagulants; Z51.81 Encounter for therapeutic drug level monitoring | CPT/HCPCS: 85610; 99211 ==

== ENCOUNTER 2024-06-05 14:21 | Outpatient (AMB) | payer OTHER, SELFPAY ==
[2024-06-05 14:29] LABS: Prothrombin Time Whole Bld POC 34.3 sec (11.1-13.5); ~PT, ~INR - Anti Coag Clinic 2.9 (0.9-1.1)
--- NOTE | 2024-06-05 14:35 | MHC.OFFVISCO ---
Intake Intake Visit Reasons: Anticoagulation Allergies pantoprazole [From Protonix] Allergy (Severe, Verified 06/05/24 14:22) Palpitations Medication List - Last Reconciled 06/05/24 by Beatriz Morrison, JAGDISH amlodipine 5 mg PO BID cholecalciferol (vitamin D3) 25 mcg PO DAILY docusate sodium 100 mg PO BID PRN metoprolol succinate ER (Toprol XL) 75 mg PO DAILY warfarin See Protocol 5 mg orally 2.5mg x 5 days / week; Nursing Note INR: 2.9 in therapeutic range 2-3 Medications and supplements reviewed No changes in health, diet, medications, or supplements, Denies any signs and symptoms of bleeding or bruising or clotting. Bleeding, bruising, clotting discussed Nutritional guidance given to balance foods that raise with foods that lower the INR Dose: 2.5mg X 5 days and none X 2 days F/U INR: 3 weeks Patient verbalizes understanding of instructions given Anti-Coag Initial Assessment Social Hx Patient Tobacco Use Status: Never used Tobacco alcohol intake: never Cardiovascular Hx: HTN, Arrhythmias, Rheumatic Fever, Varicose Veins and Other Lung Disease HX: DVT/PE Musculoskeletal Hx: Other GI Hx: Hemorrhoids and Other Cancer HX: No Psych. 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
== END 2024-06-05 14:38 | disposition home or self-care (01) ==
LOC: HO.ACS 14:21
PROVIDERS: PCP Student in an Organized Health Care Education/Training Program; Visit Provider Internal Medicine
DX: Z79.01 Long term (current) use of anticoagulants (principal)

== ENCOUNTER → 2024-06-05 14:21 | Outpatient (BNVA) | payer OTHER, SELFPAY | PROVIDERS: PCP Student in an Organized Health Care Education/Training Program; Visit Provider Internal Medicine | DX: I48.20 Chronic atrial fibrillation, unspecified (principal); Z79.01 Long term (current) use of anticoagulants; Z51.81 Encounter for therapeutic drug level monitoring | CPT/HCPCS: 85610; 99211 ==

== ENCOUNTER 2024-06-25 13:22 | Outpatient (AMB) | payer OTHER, SELFPAY ==
[2024-06-25 13:29] LABS: Prothrombin Time Whole Bld POC 35.5 sec (11.1-13.5)
--- NOTE | 2024-06-25 13:37 | MHC.OFFVISCO ---
Intake Intake Visit Reasons: Anticoagulation Allergies pantoprazole [From Protonix] Allergy (Severe, Verified 06/25/24 13:24) Palpitations Medication List - Last Reconciled 06/25/24 by Beatriz Morrison, JAGDISH amlodipine 5 mg PO BID cholecalciferol (vitamin D3) 25 mcg PO DAILY docusate sodium 100 mg PO BID PRN metoprolol succinate ER (Toprol XL) 75 mg PO DAILY warfarin See Protocol 5 mg orally 2.5mg x 5 days / week; Nursing Note INR: 3.0 in therapeutic range of 2-3 Medications and supplements reviewed No changes in health, diet, medications, or supplements, Denies any signs and symptoms of bleeding or bruising or clotting. Bleeding, bruising, clotting discussed Nutritional guidance given to have a serving of greens today Dose: to keep same dose of 2.5mg X 5 days and no warfarin on Tuesday and Tuesday. F/U INR: 3 weeks Patient verbalizes understanding of instructions given Anti-Coag Initial Assessment Social Hx Patient Tobacco Use Status: Never used Tobacco alcohol intake: never Cardiovascular Hx: HTN, Arrhythmias, Rheumatic Fever, Varicose Veins and Other Lung Disease HX: DVT/PE Musculoskeletal Hx: Other GI Hx: Hemorrhoids and Other Cancer HX: No Psych. Illness/Depression: Yes (pt states no - md hx states yes ) Coding Level of Care Code Est Patient Level 1 Diagnoses Current use of anticoagulant therapy Z79.01 Assessment & Plan Assessment & Plan (1) Current use of anticoagulant therapy: Code(s): Z79.01 - jail (current) use of anticoagulants Category: Medical
--- OUTSIDE RECORDS SUMMARY | 2024-06-25 18:04 | XMS_ITS ---
Author Organization [facility] Address [address] [place] [address] Care Team Providers Care Home Organizer Name Role Phone PONCHO DONOHUE Primary Care Provider Results Component Value Reference Range Notes DIGOXIN LEVEL Reviewed date:05/10/2023 06:03:27 PM Interpretation: Performing Lab: Notes/Report: Original Ordering Provider: PONCHO DONOHUE MD Emme [id number], [place] [address] Security Orderly - Candice Alford MD DIGOXIN LEVEL 0.3 0.5-2.0 ng/ml REASON FOR VISIT Critical Dig Level Encounters Encounter Location Date Provider Diagnosis [facility] [address] [place] [address] 05/05/2023 PONCHO DONOHUE Digoxin poisoning of undetermined intent, initial encounter T46.0X4A Assessments Encounter Date Diagnosis (ICD Code) Assessment Notes Treatment Notes Treatment Clinical Notes Section Notes 05/05/2023 Digoxin poisoning of undetermined intent, initial encounter (ICD-10 - T46.0X4A) Plan Of Treatment No Information Progress Notes * Giles LYNCHDOB:[birth year] (77 yo F)Acc No.[id number]:05/05/2023 Patient:?Alina Lynchjessy :1945???Age:77 Y???Sex:Female Address:[address] [place] [address], [id number] Subjective: * Chief Complaints: * ???Critical Dig Level * Medical History:? * Surgical History:? * Hospitalization/Major Diagno stic Procedure:? * Medications:? Objective: Assessment: * Assessment: 1.?Digoxin poisoning of unde termined intent, initial encounter - T46.0X4A? Plan: * Treatment: * Procedure Codes:? * true * Date:? Generated for Gabriel yu/Helen/Jacintaitting on:?06/25/2024 06:04 PM EST
--- OUTSIDE RECORDS SUMMARY | 2024-06-25 18:04 | XMS_ITS | Encounter Summary ---
Author Organization [facility] Address [address] [place] [id number] Care Team Providers Care Interpretative Dancer Name Role Phone Laura Mensah MD Primary Care Provider [phone] Reason for Visit * Reason Comments Follow-up Encounter Details Date Type Department Care Team (Late st Contact Info) Description 06/07/2024 10:30 AM EST Office Visit Adult Medicine [facility] [address] [place] [address] Laura Mensah MD [address] [place] [address] Primary hypertension (Primary Dx); Liver hemangioma; Atrial fibrillation, unspecified type (CMS/HCC) Social History Tobacco Use Types Packs/Day Years Used Date Smoking Tobacco: Never Assessed Sex and Gender Information Value Date Recorded Sex Assigned at Not on file Gender Identity Not on file Sexual Orientation Not on file Job Start Date Occupation Industry Not on file Not on file Not on file documented as of this encounter Last Filed Vital Signs Vital Sign Reading Time Taken Comments Blood Pressure 124/66 06/07/2024 10:56 AM EST Pulse 74 06/07/2024 10:56 AM EST Temperature 36.3 ??C (97.3 ??F) 06/07/2024 10:[address] Respiratory Rate 12 06/07/2024 10:56 AM EST Oxygen Saturation - - Inhaled Oxygen Concentration - - Weight 60.8 kg (134 lb) 06/07/2024 10:56 AM EST Height 160 cm (5' 3 ) 06/07/2024 10:56 AM EST Body Mass Index 23.74 06/07/2024 10:56 AM EST documented in this encounter Ordered Prescriptions Prescription Sig Dispensed Refills Start Date End Da te lisinopriL (PRINIVIL,ZESTRIL) 10 mg tablet Take 1 tablet (10 mg total) by mouth 1 (one) time each day. 90 each 06/07/2024 09/05/2024 documented in this encounter Progress Notes * Laura Mensah MD - 06/07/2024 10:30 AM EST CHIEF COMPLAINT: Follow-up IDENTIFIER: Giles Lynch is a 78 y.o. old female. HPI: 78 yo F is here for follow up for: HTN Afib Liver hemangioma ROS: The remainder of review of systems is noncontributory. 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 No family history on file. ACTIVE MEDICATIONS: Outpatient Medications Marked as Taking for the 06/07/24 encounter (Office Visit) with Laura Mensah MD Medication Sig Dispense Refill bisacodyL (DULCOLAX) 5 mg EC tablet Take 2 tabs by mouth right before beginning bowel prep. Follow instructions given by office for timing. docusate sodium (COLACE) 100 mg capsule Take 1 capsule (100 mg total) by mouth. metoprolol succinate (TOPROL-XL) 50 mg 24 hr tablet Take 1 tablet (50 mg total) by mouth. warfarin (COUMADIN) 2.5 mg tablet Take 1 tablet (2.5 mg total) by mouth. [DISCONTINUED] amLODIPine (NORVASC) 5 mg tablet TAKE 1 TABLET BY MOUTH EVERY DAY 30 tablet 0 ALLERGIES: Amlodipine besylate and Pantoprazole PHYSICAL EXAM: Blood pressure 124/66, pulse 74, temperature 36.3 ??C (97.3 ??F), resp. rate 12, height 1.6 m (63 ), weight 60.8 kg (134 lb). Body mass index is 23.74 kg/m??. BMI is 18.5 to 24.9 (within the normal range) and will be followed APPEARANCE: Alert and in no acute distress HEART: RRR with normal S1 and S2, no murmurs, no gallops, no JVD appreciated LUNG: clear to auscultation bilaterally IMPRESSION: 1. Primary hypertension 2. Liver hemangioma 3. Atrial fibrillation, unspecified type (CMS/HCC) PLAN: #Hypertension #Atrial fibrillation Plan Patient will continue with lisinopril 10 mg daily and metoprolol XL 50 mg daily for Hypertension and atrial fibrillation Patient will continue with lifestyle changes including diet and exercise Patient will continue with warfarin 2.5 mg tablet for Afib #Liver hemangioma Plan Patient has upcoming liver ultrasound Orders Placed This Encounter Procedures Hepatic function panel ADDITIONAL ORDERS: None Laura Mensah MD on 06/09/2024 at 1:49 PM EST documented in this encounter Plan of Treatment Upcoming Encounters Date Type Department Care Team (Late st Contact Info) Description 07/30/2024 9:00 AM EST Office Visit Adult Medicine [address] [phone] Gian Hogan MD [address] [place] [address] 08/29/2024 8:45 AM EDT Appointment Radiology Department - [address] [phone] 09/05/2024 2:30 PM EDT Office Visit Adult Medicine [address] [phone] Laura Mensah MD [address] [place] [address] Scheduled Orders Name Type Priority Associated Diagnoses Orde r Schedule Hepatic function panel Lab Routine Liver hemangioma 1 Occurrences starting 06/07/2024 until 06/07/2025 documented as of this encounter Visit Diagnoses Diagnosis Primary hypertension- Primary Unspecified essential hypertension Liver hemangioma Atrial fibrillation, unspecified type (CMS/HCC) documented in this encounter Discontinued Medications Medication Sig Discontinue Reason Start Date End Da te amLODIPine (NORVASC) 5 mg tablet TAKE 1 TABLET BY MOUTH EVERY DAY 06/01/2024 06/07/2024 documented as of this encounter Historical Medications * This list may reflect changes made after this encounter. Medication Sig Dispensed Refills Start Date End Date cholecalciferol, vitamin D3, 350 mcg (14,000 unit) wafer Take by mouth. added in this encounter Care Teams Interpretative Dancer Relationship Specialty Start Date End Date Laura Mensah MD [address] [place] [address] PCP - General 08/03/23 documented as of this encounter
--- OUTSIDE RECORDS SUMMARY | 2024-06-25 18:04 | XMS_ITS | Clinical Summary ---
Author Organization [facility] Address [address] [facility] [facility] [address] [place] [address] Phone Care Team Providers Care Mechanical Test Engineer Name Role Phone Ashok Pulido MD Primary Care Provider [phone] Allergies No known active allergies Medications metoprolol succinate XL (TOPROL XL) 50 MG 24 hr tablet Take 50 mg by mouth 1 (one) time each day Do not crush or chew. Active digoxin (LANOXIN) 125 MCG tablet Take 125 mcg by mouth 1 (one) time each day Active warfarin (COUMADIN) 2.5 MG tablet Take 2.5 mg by mouth 1 (one) time each day Take as directed per After Visit Summary. Active amLODIPine (NORVASC) 5 MG tablet Take 5 mg by mouth 1 (one) time each day Active Active Problems Problem Noted Date Diagnosed Date Hypertension 08/08/2023 Paroxysmal atrial fibrillation 08/08/2023 Chronic kidney disease 08/08/2023 Vitamin D deficiency 08/08/2023 Other cardiomyopathy 08/08/2023 Glossitis 08/08/2023 Gastroesophageal reflux disease 08/08/2023 Osteoporosis 08/08/2023 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 08/08/2023 Sleep disorder 08/08/2023 Social History Tobacco Use Types Packs/Day Years Used Date Smoking Tobacco: Never Smokeless Tobacco: Never Tobacco Cessation:Counseling Given: No Alcohol Use Standard Drinks/Week Comments Never 0 (1 standard drink = 0.6 oz pur e alcohol) Comments Unknown Sex and Gender Information Value Date Recorded Sex Assigned at Not on file Legal Sex Female 10:14 AM EST Gender Identity Not on file Sexual Orientation Not on file Last Filed Vital Signs Vital Sign Reading Time Taken Comments Blood Pressure 140/76 10/21/2023 9:59 AM EDT Pulse 91 10/21/2023 9:59 AM EDT Temperature - - Respiratory Rate - - Oxygen Saturation - - Inhaled Oxygen Concentration - - Weight 69.3 kg (152 lb 12.8 oz) 10/21/2023 9:59 AM EDT Height - - Body Mass Index - - Plan of Treatment Upcoming Encounters Date Type Department Care Team (Late st Contact Info) Description 10/15/2024 2:30 PM EDT Office Visit [facility] [address] [phone] Jay De Leon MD [address] [phone] Health Maintenance Due Date Last Done Comments Pneumococcal Vaccine: 65+ Ye ars (1 of 2 - PCV) 1951 Influenza Vaccine (#1) 2024 Hepatitis B Vaccine Aged Out No longe r eligible based on patient's age to complete this topic Insurance [place] Care Teams Mechanical Test Engineer Relationship Specialty Start Date End Date Ashok Pulido MD [address] [address] PCP - General Internal Medicine 10/21/23
--- OUTSIDE RECORDS SUMMARY | 2024-06-25 18:04 | XMS_ITS ---
Author Organization [facility] Address [address] [facility] [address] [place] [address] Care Team Providers Care Jeep Driver Name Role Phone MANI HAHN Primary Care Provider [phone] Allergies Allergen (clinical drug ingredient) Drug/Non Drug Allergy documented on EMR Reaction Allergy Type Onset Date Status pantoprazole Protonix TBEC (uncoded) Unknown Allergy Active amlodipine Amlodipine Besylate edema, contipation Drug Allergy Active Results Component Value Reference Range Notes DIGOXIN LEVEL Reviewed date:05/05/2023 01:39:03 PM Interpretation: Performing Lab: Notes/Report: [employer] [address] Breaker Machine Tender - Candice Alford MD DIGOXIN LEVEL 2.9 0.5-2.0 ng/ml JENELLE GREENE CALLED CRITICAL RESULTS AT [id number] TO AND READ BACK BY DR. HAHN ELECTROLYTES Reviewed date:05/05/2023 01:39:03 PM Interpretation: Performing Lab: Notes/Report: SODIUM 142 135-145 mEq/L POTASSIUM 5.0 3.5-5.5 mmol/L CHLORIDE 105 96-110 mmol/L CO2 31 21-32 mmol/L ANION GAP 6 3-11 PT/INR Reviewed date:05/05/2023 01:39:03 PM Interpretation: Performing Lab: Notes/Report: Original Ordering Provider: MANI HAHN MD [employer] [address] Breaker Machine Tender - Candice Alford MD PROTHROMBIN TIME 26.8 10.6-13.9 SEC INR 2.13 REASON FOR VISIT Follow-Up:, Last Labs: 04/04/23 Medications Medication SIG (Take, Route, Frequency, Duration) Notes Start Date End Date Status Celebrex 200 MG 1 capsule W/ FOOD Orally Once a day for 90 Not-Taking ALPRAZolam 0.5 MG 1 tablet Orally Twice a day for 10 days 01/13/2023 Not-Taking Gas-X 80 MG 1 tablet after meals and at bedtime as needed Orally Four times a day PRN Not-Taking Ramipril 5 MG 1 capsule Orally Once a day for 30 days Not-Taking Omeprazole 20 MG 1 capsule Orally Once a day for 90 days Not-Taking Toprol XL 50 MG TAKE 1 TABLET BY MOUTH EVERY DAY for 90 Active Furosemide 20 MG TAKE 1 TABLET BY MOUTH EVERY DAY NEEDED FOR 30 DAYS for 90 days as needed in summer Active Ramipril 5 MG 1 capsule Orally Once a day 03/24/2023 Not-Taking Digoxin 250 MCG TAKE 1/2 TABLET BY MOUTH EVERY DAY Orally Once a day Active Warfarin Sodium 5 MG TAKE 1/2 -1 TABLET ONCE DAILY DIRECTED for 90 Current Dose: Nothing On Tue & Tue- All Other Days 2.5mg Active Vitamin D 1000 UNIT 1 tablet Orally Daily TAKE 1 TABLET DAILY. 05/08/2012 Unknown Fluticasone Propionate 50 MCG/ACT Nasal Daily for 14 USE 2 SPRAYS IN EACH NOSTRIL ONCE DAILY 02/21/2015 Not-Taking Diflucan 150 MG 1 tablet Orally Once a day for 2 08/30/2016 Not-Taking Hydrocortisone 2.5 % 1 application to affected area Externally Twice a day for 30 day(s) 12/16/2015 Not-Taking Lisinopril 5 MG 1 tablet Orally Once a day for 30 day(s) 09/13/2016 Not-Taking Cipro 250 MG 1 tablet Orally every 12 hrs for 5 days 12/10/2016 Not-Taking cloNIDine HCl 0.1 MG 1 tablet Orally Twice a day for 90 Not-Taking Omeprazole 20 MG 1 capsule Orally Once a day for 90 Not-Taking Lisinopril 10 MG 1 tablet Orally Once a day for 90 days 06/20/2018 Not-Taking cloNIDine HCl 0.2 MG 1 tablet Orally Twice a day for 90 days Not-Taking Montelukast Sodium 10 MG 1 tablet in the evening Orally Once a day for 30 day(s) 02/13/2019 Not-Taking amLODIPine Besylate 5 MG 1 tablet Orally Once a day for 90 Not-Taking hydrALAZINE HCl 50 MG 1 tablet Orally Twice a day for 30 day(s) 01/22/2019 Not-Taking Digoxin 125 MCG TAKE 1 TABLET BY MOUTH EVERY DAY Orally Not-Taking Cyclobenzaprine HCl 5 MG 1 tablet Orally Three times a day for 14 days Not-Taking Meclizine HCl 12.5 MG 1 tablets as needed Orally three times a day for 10 days 07/03/2021 Not-Taking Problems Problem Type SNOMED Code ICD Code Onset Dates Problem Status W/U Status Risk Notes Problem Essential hypertension (76404642) Essential (primary) hypertension (I10) Active confirmed Vital Signs Temperature 98.2 degrees Fahrenheit 05/04/20 Blood pressure systolic 144 mm Hg 05/04/20 23 Blood pressure diastolic 74 mm Hg 023 Heart Rate 65 /min 05/04/2023 Height 62 in 05/04/2023 Weight 129 lbs 05/04/2023 BMI 23.59 kg/m2 05/04/2023 Encounters Encounter Location Date Provider Diagnosis [address] [place] [phone] 05/04/2023 MANI HAHN Essential (primary) hypertension I10 ; Digoxin poisoning of undetermined intent, subsequent encounter T46.0X4D and Chronic atrial fibrillation, unspecified I48.20 Assessments Encounter Date Diagnosis (ICD Code) Assessment Notes Treatment Notes Treatment Clinical Notes Section Notes 05/04/2023 Essential (primary) hypertension (ICD-10 - I10) 05/04/2023 Digoxin poisoning of undetermined intent, subsequent encounter (ICD-10 - T46.0X4D) 05/04/23 Was in [facility] ED with nausea and right side chest pain Had CXR, CT brain Normal Had elevated digoxin level Told to stop for 3 days and then take 1/2 pill of 0.25 mg which she is doing. I checked her level today and it is still elevated at 2.5 . The [place] called her to take 3 times a week and check dig level after 10 days 05/04/2023 Chronic atrial fibrillation, unspecified (ICD-10 - I48.20) Plan Of Treatment Pending Test Test Name Order Date BUN, Creatinine 05/04/2023 Next Appt Details Follow Up: 2 Weeks, Reason: Progress Notes * Alexandra LYNCH:[birth year] (77 yo F)Acc No.[id number]:05/04/2023 Progress Notes Patient:?Giles Lynch Provider:?Mani Hahn MD :1945???Age:77 Y???Sex:Female D ate:05/04/2023 Address:[address] [place] [address] Subjective: * Chief Complaints: * ???Follow-Up:Last Labs: 11/19 * Medical History:? * Surgical History:?Cholecyste ctomy Laparoscopic 2009Mitral Valve Replacement 2000Biopsy Breast Open 2014 * Hospitalization/Major Diagno stic Procedure:? * Medications:?TakingWarfarin Sodium 5 MG Tablet TAKE 1/2 -1 TABLET ONCE DAILY DIRECTED , Notes: Current Dose: Nothing On Wed & Fri- All Other Days 2.5mgDigoxin 250 MCG Tablet TAKE 1/2 TABLET BY MOUTH EVERY DAY Orally Once a dayFurosemide 20 MG Tablet TAKE 1 TABLET BY MOUTH EVERY DAY NEEDED FOR 30 DAYS , Notes: as needed in summerToprol XL 50 MG Tablet Extended Release 24 Hour TAKE 1 TABLET BY MOUTH EVERY DAY Taking Warfarin Sodium 5 MG Tablet TAKE 1/2 -1 TABLET ONCE DAILY DIRECTED , Notes: Current Dose: Nothing On Wed & Fri- All Other Days 2.5mgTaking Digoxin 250 MCG Tablet TAKE 1/2 TABLET BY MOUTH EVERY DAY Orally Once a dayTaking Furosemide 20 MG Tablet TAKE 1 TABLET BY MOUTH EVERY DAY NEEDED FOR 30 DAYS , Notes: as needed in summerTaking Toprol XL 50 MG Tablet Extended Release 24 Hour TAKE 1 TABLET BY MOUTH EVERY DAY Not-TakingRamipril 5 MG Capsule 1 capsule Orally Once a dayGas-X 80 MG Tablet Chewable 1 tablet after meals and at bedtime as needed Orally Four times a day, Notes: PRNALPRAZolam 0.5 MG Tablet 1 tablet Orally Twice a dayOmeprazole 20 MG Capsule Delayed Release 1 capsule Orally Once a dayRamipril 5 MG Capsule 1 capsule Orally Once a dayCelebrex 200 MG Capsule 1 capsule W/ FOOD Orally Once a dayMeclizine HCl 12.5 MG Tablet 1 tablets as needed Orally three times a dayCyclobenzaprine HCl 5 MG Tablet 1 tablet Orally Three times a dayDigoxin 125 MCG Tablet TAKE 1 TABLET BY MOUTH EVERY DAY Orally hydrALAZINE HCl 50 MG Tablet 1 tablet Orally Twice a dayamLODIPine Besylate 5 MG Tablet 1 tablet Orally Once a dayMontelukast Sodium 10 MG Tablet 1 tablet in the evening Orally Once a dayOmeprazole 20 MG Capsule Delayed Release 1 capsule Orally Once a daycloNIDine HCl 0.1 MG Tablet 1 tablet Orally Twice a daycloNIDine HCl 0.2 MG Tablet 1 tablet Orally Twice a dayLisinopril 10 MG Tablet 1 tablet Orally Once a dayCipro 250 MG Tablet 1 tablet Orally every 12 hrsDiflucan 150 MG Tablet 1 tablet Orally Once a dayLisinopril 5 MG Tablet 1 tablet Orally Once a dayHydrocortisone 2.5 % Cream 1 application to affected area Externally Twice a dayFluticasone Propionate 50 MCG/ACT SUSP Nasal Daily, Notes: USE 2 SPRAYS IN EACH NOSTRIL ONCE DAILYNot-Taking Ramipril 5 MG Capsule 1 capsule Orally Once a dayNot-Taking Gas-X 80 MG Tablet Chewable 1 tablet after meals and at bedtime as needed Orally Four times a day, Notes: PRNNot-Taking ALPRAZolam 0.5 MG Tablet 1 tablet Orally Twice a dayNot-Taking Omeprazole 20 MG Capsule Delayed Release 1 capsule Orally Once a dayNot-Taking Ramipril 5 MG Capsule 1 capsule Orally Once a dayNot-Taking Celebrex 200 MG Capsule 1 capsule W/ FOOD Orally Once a dayNot- Taking Meclizine HCl 12.5 MG Tablet 1 tablets as needed Orally three times a dayNot- Taking Cyclobenzaprine HCl 5 MG Tablet 1 tablet Orally Three times a dayNot-Taking Digoxin 125 MCG Tablet TAKE 1 TABLET BY MOUTH EVERY DAY Orally Not-Taking hydrALAZINE HCl 50 MG Tablet 1 tablet Orally Twice a dayNot-Taking amLODIPine Besylate 5 MG Tablet 1 tablet Orally Once a dayNot-Taking Montelukast Sodium 10 MG Tablet 1 tablet in the evening Orally Once a dayNot-Taking Omeprazole 20 MG Capsule Delayed Release 1 capsule Orally Once a dayNot-Taking cloNIDine HCl 0.1 MG Tablet 1 tablet Orally Twice a dayNot-Taking cloNIDine HCl 0.2 MG Tablet 1 tablet Orally Twice a dayNot- Taking Lisinopril 10 MG Tablet 1 tablet Orally Once a dayNot-Taking Cipro 250 MG Tablet 1 tablet Orally every 12 hrsNot-Taking Diflucan 150 MG Tablet 1 tablet Orally Once a dayNot-Taking Lisinopril 5 MG Tablet 1 tablet Orally Once a dayNot-Taking Hydrocortisone 2.5 % Cream 1 application to affected area Externally Twice a dayNot-Taking Fluticasone Propionate 50 MCG/ACT SUSP Nasal Daily, Notes: USE 2 SPRAYS IN EACH NOSTRIL ONCE DAILYUnknownVitamin D 1000 UNIT Tablet 1 tablet Orally Daily, Notes: TAKE 1 TABLET DAILY.Medication List reviewed and reconciled with the patientUnknown Vitamin D 1000 UNIT Tablet 1 tablet Orally Daily, Notes: TAKE 1 TABLET DAILY.Medication List reviewed and reconciled with the patient * Allergies:?Protonix TBECAmlo dipine Besylate: edema, contipationno[Allergies Verified] Objective: * Vitals:?Temp:98.2 F, HR:65 / min, BP:144/74 mm Hg, Wt:129 lbs, BMI:23.59 Index, Ht: 62 in, Wt-k.51 kg. Assessment: * Assessment: 1.?Essential (primary) hyper tension - I10?2.?Digoxin poisoning of undetermined intent, subsequent encounter - T46.0X4D (Primary), 05/04/23 Was in [facility] ED with nausea and right side chest pain Had CXR, CT brain Normal Had elevated digoxin level Told to stop for 3 days and then take 1/2 pill of 0.25 mg which she is doing. I checked her level today and it is still elevated at 2.5 . The [place] called her to take 3 times a week and check dig level after 10 days?3.?Chronic atrial fibrillation, unspecified - I48.20? Plan: * Treatment: 2.?Essential (primary) hyper tension?LAB: BUN, Creatinine ?LAB: DIGOXIN LEVEL ?LAB: ELECTROLYTES ?LAB: PT/INR 3.?Chronic atrial fibrillati on, unspecified?LAB: BUN, Creatinine ?LAB: DIGOXIN LEVEL ?LAB: ELECTROLYTES ?LAB: PT/INR * Procedure Codes:? * Follow Up:?2 Weeks * Billing Information: * Visit Code:? 38242 Office Visit, Est Pt., Level 4. * Procedure Codes:? * Sign off status: Completed true * Provider:?Mani Hahn MD Date:?2022 Generated for Gabriel yu/Helen/Stalin on:?06/25/2024 06:04 PM EST
--- OUTSIDE RECORDS SUMMARY | 2024-06-25 18:04 | XMS_ITS | Clinical Summary ---
Author Organization [address] Address [address] [place] [phone] Phone Care Team Providers Care Shot Grinder Operator Name Role Phone Laura Mensah MD Primary Care Provider [phone] Allergies Active Allergy Reactions Criticality Noted Date Comments Amlodipine Besylate 08/18/2022 Pantoprazole 06/10/2006 Medications Medication Sig Dispensed Refills Start Date End Date Status bisacodyL (DULCOLAX) 5 mg EC tablet Take 2 tabs by mouth right before beginning bowel prep. Follow instructions given by office for timing. 06/07/2023 Active metoprolol succinate (TOPROL-XL) 50 mg 24 hr tablet Take 1 tablet (50 mg total) by mouth. Active warfarin (COUMADIN) 2.5 mg tablet Take 1 tablet (2.5 mg total) by mouth. Active docusate sodium (COLACE) 100 mg capsule Take 1 capsule (100 mg total) by mouth. 02/29/2024 Active cholecalciferol, vitamin D3, 350 mcg (14,000 unit) wafer Take by mouth. Active lisinopriL (PRINIVIL,ZESTRI L) 10 mg tablet Take 1 tablet (10 mg total) by mouth 1 (one) time each day. 90 each 06/07/2024 5 Active amLODIPine (NORVASC) 5 mg tablet Take 1 tablet (5 mg total) by mouth 1 (one) time each day. 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 08/08/2023 Sleep disorder 08/08/2023 Vitamin D deficiency 08/08/2023 Encounters Date Type Department Care Team Description 06/07/2024 10:30 AM EST Office Visit [address] [phone] Laura Mensah MD Primary hypertension (Primary Dx); Liver hemangioma; Atrial fibrillation, unspecified type (CMS/HCC) from Last 3 Months Social History Tobacco Use Types Packs/Day Years Used Date Smoking Tobacco: Never Assessed Sex and Gender Information Value Date Recorded Sex Assigned at Not on file Gender Identity Not on file Sexual Orientation Not on file Job Start Date Occupation Industry Not on file Not on file Not on file Last Filed Vital Signs [...] Mass Index 23.74 06/07/2024 10:56 AM EST Plan of Treatment Upcoming Encounters Date Type Department Care Team (Late st Contact Info) Description 07/30/2024 9:00 AM EST Office Visit [address] [phone] Gian Hogan MD [address] [place] [address] 08/29/2024 8:45 AM EDT Appointment Radiology Department [address] [phone] 09/05/2024 2:30 PM EDT Office Visit Adult Medicine [address] [phone] Laura Mensah MD [address] [place] [address] Health Maintenance Due Date Last Done Comments COVID-19 Vaccine (#1) [birth year]19/1950 DTaP,Tdap,and Td Vaccines (1 - Tdap) 1965 Hepatitis A Vaccines (1 of 2 - Risk 2-dose series) 1965 Zoster Vaccines (1 of 2) 1996 Hepatitis B Vaccines (1 of 3 - Risk 3-dose series) 2006 Pneumococcal Vaccine: 65+ Years (1 of 1 - PCV) 12/19/2011 RSV Immunization Patients 60 + Years Old (1 - 1-dose 75+ series) 2021 Depression Screening 04/28/2022 Falls Risk Assessment 04/28/2022 Hepatitis C Screening 04/28/2022 Medicare Annual Wellness Visit 04/28/2022 Social Influencers of Health Screening 04/28/2022 Influenza Vaccine (#1) 2024 Hypertension/CHF/CAD Annual BMP Blood Test 02/28/2025 02/29/2024 Cholesterol Screening (Lipid Panel) 02/28/2029 02/29/2024 Osteoporosis Screening (Bone Density Screening) 03/31/2031 03/31/2021, 03/29/2019 HIB Vaccines Aged Out No longer eligi ble based on patient's age to complete this topic HPV Vaccines Aged Out No longer eligi ble based on patient's age to complete this topic IPV Vaccines Aged Out No longer eligi ble based on patient's age to complete this topic MMR Vaccines Aged Out No longer eligi ble based on patient's age to complete this topic Meningococcal ACWY Vaccine Aged Out N o longer eligible based on patient's age to complete this topic RSV Immunization Patients Under 20 months Aged Out No longer eligible b ased on patient's age to complete this topic Varicella Vaccines Aged Out No longer eligible based on patient's age to complete this topic Procedures Procedure Name Priority Date/Time Associated Diagnosis Comments [facility] DEXA AXIAL SKELETON Routine 03/31/2021 11:16 AM EDT Encounter for screening for osteoporosis from Last 3 Months or Most Recently Relevant to Health Maintenance Results * [facility] DEXA AXIAL SKELETON (03/31/2021 11:16 AM EDT) Anatomical Region Laterality Modality Mammography 03/31/2021 10:4 0 AM EDT Narrative 03/31/2021 11:16 AM EDT [facility] Diagnostic Imaging Department [address] [place] [address] Patient: ??JONAS LYNCH ?/Age/Sex: 1945 - 75 - F Unit#: ??[id number] ? Location/Status: ??SPDIMAM/REG CLI ? Mnemonic/Ordering Site: ??MAMDEXAAX/SPMAM Ordering Physician: ??MANI DONOHUE MD [facility] Dexa Axial Skeleton - 03/31/211105 HISTORY: ??The patient is a 75-year-old postmenopausal female with clinical concern for metabolic bone disease. FINDINGS: ??Dual energy x-ray absorptiometry of the lumbar spine and femurs is performed. The mean bone mineral density at L1-L4 is 0.855 gm/cm2 which is 72% of that of young normals and 90% of that of age matched controls. This yields a T-score of -2.7 and a Z-score of -0.8 which is diagnostic of osteoporosis. The mean bone mineral density of the femurs bilaterally is 0.748 gm/cm2 which is 74% of that of young normals and 97% of that of age matched controls. ??This yields a T-score of -2.1 and a Z-score of -0.2 which is diagnostic of osteopenia. IMPRESSION: 1. Osteoporosis. ??There has been a decrease of 0.8% in bone mineral density in the lumbar spine since the prior examination of 03/29/2019. ??There has been an increase of 2.0% in bone mineral density in the right femur and an increase of 0.9% in bone mineral density in the left femur. 2. FRAX analysis yields a 10-year probability of major osteoporotic fracture of 13.4% and a 10-year probability of hip fracture of 3.5%. Code 31434 Dictating Physician: ??MARCELA EVANS MD Electronically Signed by: ??MARCELA EVANS MD Dic Date/Time: ??03/31/21 1115 Sign date/Time: ??03/31/21 1116 Procedure Note Marcela Evans MD - 05/19/2022 [facility] Diagnostic Imaging Department [address] [place], [place] [id number] Patient: JONAS LYNCH/Age/Sex: 1945 - 75 - F Unit#: [id number] Location/Status: [facility] CLI Mnemonic[facility]ing [facility] Ordering Physician: MANI DONOHUE MD [facility] Dexa Axial Skeleton - 03/31/21 - 1106 HISTORY: The patient is a 75-year-old postmenopausal female withclinical concern for metabolic bone disease. FINDINGS: Dual energy x-ray absorptiometry of the lumbar spine and femursis performed. The mean bone mineral density at L1-L4 is 0.855 gm/cm2 which is72% of that of young normals and 90% of that of age matched controls. Thisyields a T-score of -2.7 and a Z-score of -0.8 which is diagnostic ofosteoporosis. The mean bone mineral density of the femurs bilaterally is 0.748 gm/ay9omskd is 74% of that of young normals and 97% of that of age matched controls.This yields a T-score of -2.1 and a Z-score of -0.2 which is diagnostic of osteopenia. IMPRESSION: 1. Osteoporosis. There has been a decrease of 0.8% in bone mineraldensity in the lumbar spine since the prior examination of 03/29/2019. There hasbeen an increase of 2.0% in bone mineral density in the right femur and anincrease of 0.9% in bone mineral density in the left femur. 2. FRAX analysis yields a 10-year probability of major osteoporoticfracture of 13.4% and a 10-year probability of hip fracture of 3.5%. Code 80652 Dictating Physician: MARCELA EVANS MD Electronically Signed by: MARCELA EVANS MD Dic Date/Time: 03/31/21 1115 Sign date/Time: 03/31/21 111 Mani Donohue MD IMG BI PROCEDURES from Last 3 Months or Most Recently Relevant to Health Maintenance Care Teams Shot Grinder Operator Relationship Specialty Start Date End Date Laura Mensah MD [address] [place] [address] PCP - General 08/03/23
--- OUTSIDE RECORDS SUMMARY | 2024-06-25 18:04 | XMS_ITS ---
Author Organization [facility] Address [address] [facility] [address] [place] [address] Care Team Providers Care Shredder Tender Peat Name Role Phone PONCHO DONOHUE Primary Care Provider REASON FOR VISIT Refill Request Medications Medication SIG (Take, Route, Frequency, Duration) Notes Start Date End Date Status Warfarin Sodium 5 MG TAKE 1/2 -1 TABLET ONCE DAILY DIRECTED Orally Once a day for 90 days Active amLODIPine Besylate 5 MG 1 tablet Orally Twice A Day for 90 days Active Encounters Encounter Location Date Provider Diagnosis [facility] [address] [facility] [address] [place] [address] 05/10/2023 PONCHO DONOHUE Plan Of Treatment Medication Medication Name Sig Start Date Stop Date Notes Warfarin Sodium 5 MG TAKE 1/2 -1 TABLET ONCE DAILY DIRECTED Orally Once a day for 90 days amLODIPine Besylate 5 MG 1 tablet Orally Twice A Day for 90 days Progress Notes * Giles LYNCHDOB:[birth year] (77 yo F)Acc No.[id number]:05/10/2023 Patient:?Crsi Giles :1945???Age:77 Y???Sex:Female Address:[address] [place] [address], [address] * Refills? Refill Warfarin Sodium Tablet, 5 MG, Orally, 90, TAKE 1/2 -1 TABLET ONCE DAILY DIRECTED, Once a day, 90 days, Refills=3 Refill amLODIPine Besylate Tablet, 5 MG, Orally, 180 Tablet, 1 tablet, Twice A Day, 90 days, Refills=3 * true * Date:? Generated for Gabriel yu/Helen/Jacintaitting on:?06/25/2024 06:03 PM EST
== END 2024-06-25 13:40 | disposition home or self-care (01) ==
LOC: HO.ACS 13:22
PROVIDERS: PCP Student in an Organized Health Care Education/Training Program; Visit Provider Internal Medicine
DX: Z79.01 Long term (current) use of anticoagulants (principal)

== ENCOUNTER → 2024-06-25 13:22 | Outpatient (BNVA) | payer OTHER, SELFPAY | PROVIDERS: PCP Student in an Organized Health Care Education/Training Program; Visit Provider Internal Medicine | DX: I48.20 Chronic atrial fibrillation, unspecified (principal) | CPT/HCPCS: 85610; 99211 ==

== ENCOUNTER 2024-07-23 13:07 | Outpatient (AMB) | payer OTHER, SELFPAY ==
[2024-07-23 13:20] LABS: Prothrombin Time Whole Bld POC 30.6 sec (11.1-13.5); ~PT, ~INR - Anti Coag Clinic 2.5 (0.9-1.1)
--- NOTE | 2024-07-23 13:28 | MHC.OFFVISCO ---
Intake Intake Visit Reasons: Anticoagulation Allergies pantoprazole [From Protonix] Allergy (Severe, Verified 07/23/24 13:10) Palpitations Medication List - Last Reconciled 07/23/24 by Archana Marvin RN amlodipine 5 mg PO BID cholecalciferol (vitamin D3) 25 mcg PO DAILY docusate sodium 100 mg PO BID PRN metoprolol succinate ER (Toprol XL) 75 mg PO DAILY warfarin See Protocol 5 mg orally 2.5mg x 5 days / week; Nursing Note INR: 2.5 in therapeutic range Medications and supplements reviewed No changes in health, diet, medications, or supplements, Denies any signs and symptoms of bleeding or bruising or clotting. Bleeding, bruising, clotting discussed Nutritional guidance given Dose: 2.5MG X 5 DAYS / WEEK/ 0 X 2 DAYS F/U INR: 4 WEEKS Patient verbalizes understanding of instructions given with read back Anti-Coag Initial Assessment Social Hx Patient Tobacco Use Status: Never used Tobacco alcohol intake: never Cardiovascular Hx: HTN, Arrhythmias, Rheumatic Fever, Varicose Veins and Other Lung Disease HX: DVT/PE Musculoskeletal Hx: Other GI Hx: Hemorrhoids and Other Cancer HX: No Psych. Illness/Depression: Yes (pt states no - md hx states yes ) Coding Level of Care Code Est Patient Level 1 Diagnoses Current use of anticoagulant therapy Z79.01 Results AMB INR Fingerstick AMB INR Fingerstick 2.5 Last Edit by Archana Marvin RN on 07/23/24 13:21 manual entry Assessment & Plan Assessment & Plan (1) Current use of anticoagulant therapy: Code(s): Z79.01 - [facility] (current) use of anticoagulants Category: Medical
--- OUTSIDE RECORDS SUMMARY | 2024-07-23 14:59 | XMS_ITS ---
Author Organization [facility] Address [address] [facility] [address] [place] [address] Care Team Providers Care Field Associate Name Role Phone PONCHO DONOHUE Primary Care [...] Active Encounters Encounter Location Date Provider Diagnosis [facility] [address] [facility] [address] [place] [address] 05/10/2023 PONCHO DONOHUE Plan Of Treatment Medication Medication Name Sig Start Date Stop Date Notes Warfarin Sodium 5 MG TAKE 1/2 -1 TABLET ONCE DAILY DIRECTED Orally Once a day for 90 days amLODIPine Besylate 5 MG 1 tablet Orally Twice A Day for 90 days Progress Notes * Giles LYNCHDOB:[birth year] (77 yo F)Acc No.[id number]:05/10/2023 Patient:?Giles Lynch :1945???Age:77 Y???Sex:Female Address:[address] [place] [address], [address] * Refills? Refill Warfarin Sodium Tablet, 5 MG, Orally, 90, TAKE 1/2 -1 TABLET ONCE DAILY DIRECTED, Once a day, 90 days, Refills=3 Refill amLODIPine Besylate Tablet, 5 MG, Orally, 180 Tablet, 1 tablet, Twice A Day, 90 days, Refills=3 * true * Date:? Generated for Gabriel yu/Helen/Jacintaitting on:?07/23/2024 02:58 PM EST
--- OUTSIDE RECORDS SUMMARY | 2024-07-23 14:59 | XMS_ITS | Clinical Summary ---
Author Organization [facility] Address [address] [facility] [address] [place] [address] Phone Care Team Providers Care Form Builder Helper Name Role Phone Ashok Pulido MD Primary Care Provider [phone] Allergies No known active allergies Medications metoprolol [...] Office Visit [facility] [address] [phone] Jay De Leon MD [address] [phone] Health Maintenance Due Date Last Done Comments Pneumococcal Vaccine: 65+ Ye ars (1 of 2 - PCV) 1952 Influenza Vaccine (#1) 2024 Hepatitis B Vaccine Aged Out No longe r eligible based on patient's age to complete this topic Insurance [place] Care Teams Form Builder Helper Relationship Specialty Start Date End Date Ashok Pulido MD [address] [address] PCP - General Internal Medicine 10/21/23
--- OUTSIDE RECORDS SUMMARY | 2024-07-23 14:59 | XMS_ITS | Clinical Summary ---
Author Organization [address] Address [address] [place] [phone] Phone Care Team Providers Care Fruit Or Nut Crops Farm Manager Name Role Phone Laura Mensah MD Primary Care Provider [phone] Allergies Active Allergy Reactions Criticality Noted Date Comments Amlodipine Besylate 08/18/2022 Pantoprazole 06/10/2006 Medications bisacodyL (DULCOLAX) 5 mg EC tablet Take 2 tabs by mouth right before beginning bowel prep. Follow instructions given by office for timing. 4 Active metoprolol succinate (TOPROL-XL) 50 mg 24 hr tablet Take 1 tablet (50 mg total) by mouth. Active warfarin (COUMADIN) 2.5 mg tablet Take 1 tablet (2.5 mg total) by mouth. Active docusate sodium (COLACE) 100 mg capsule Take 1 capsule (100 mg total) by mouth. 4 Active cholecalciferol , vitamin D3, 350 mcg (14,000 unit) wafer Take by mouth. Act gumaro lisinopriL (PRINIVIL,ZESTR IL) 10 mg tablet Take 1 tablet (10 mg total) by mouth 1 (one) time each day. 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 08/08/2023 Sleep disorder 08/08/2023 Vitamin D deficiency 08/08/2023 Encounters Date Type Department Care Team Description 07/03/2024 Telephone Adult [address] [phone] Laura Mensah MD Medication Problem (Lisinopril) 06/07/2024 10:30 AM EST Office Visit [address] [phone] Laura Mensah MD Primary hypertension (Primary Dx); Liver hemangioma; Atrial fibrillation, unspecified type (CMS/HCC) from Last 3 Months Social History Tobacco Use Types Packs/Day Years Used Date Smoking Tobacco: Never Assessed Comments Unknown Sex and Gender Information Value Date Recorded Sex Assigned at Not on file Legal Sex Female 5:12 PM EST Gender Identity Not on file Sexual [...] Care Team (Late st Contact Info) Description 08/01/2024 5:00 PM EST Office Visit Adult [address] [phone] Laura Mensah MD [address] [place] [address] 08/29/2024 8:45 AM EDT Appointment Radiology Department - [address] [place] [phone] 09/05/2024 2:30 PM EDT Office Visit [place] [address] [place] [phone] Laura Mensah MD [address] [place] [address] Health Maintenance Due Date Last Done Comments COVID-19 Vaccine (#1) [birth year]19/1950 DTaP,Tdap,and Td Vaccines (1 - Tdap) 1965 Hepatitis A Vaccines (1 of 2 - Risk 2-dose series) 1965 Pneumococcal Vaccine: 50+ Years (1 of 1 - PCV) 1996 Zoster Vaccines (1 of 2) 1996 Hepatitis B Vaccines (1 of 3 - Risk 3-dose series) 2006 RSV Immunization Patients 60 + Years Old [...] patient's age to complete this topic Meningococcal B Vacine Aged Out No lo nger eligible based on patient's age to complete this topic RSV Immunization Patients Under 20 months Aged Out No longer eligible b ased on patient's age to complete this topic Varicella Vaccines Aged Out No longer eligible based on patient's age to complete this topic Procedures Procedure Name Priority Date/Time Associated Diagnosis Comments [facility] DEXA AXIAL SKELETON Routine 03/31/2021 11:16 AM EDT Encounter for screening for osteoporosis from Last 3 Months or Most Recently Relevant to Health Maintenance Results * [facility] DEXA AXIAL SKELETON (03/31/2021 11:16 AM EDT) Anatomical Region Laterality Modality Mammography 03/31/2021 10:4 0 AM EDT Narrative 03/31/2021 11:16 AM EDT [facility] Diagnostic Imaging Department [address] [place] [address] Patient: ??JONAS LYNCH ?/Age/Sex: 1945 - 75 - F Unit#: ??[id number] ? Location/Status: ??SPDIMAM/REG CLI ? Mnemonic/Ordering Site: ??MAMDEXAAX/SPMAM Ordering Physician: ??MANI DONOHUE MD [facility] Dexa Axial Skeleton - 03/31/21 HISTORY: ??The patient is a 75-year-old postmenopausal [...] probability of hip fracture of 3.5%. Code 72426 Dictating Physician: ??MARCELA EVANS MD Electronically Signed by: ??MARCELA EVANS MD Dic Date/Time: ??03/31/21 1115 Sign date/Time: ??03/31/21 1116 Procedure Note Marcela Evans MD - 05/19/2022 [facility] Diagnostic Imaging Department [address] [place] [address] Patient: JONAS LYNCH./Age/Sex: 1945 - 75 - F Unit#: [id number] [facility] Ordering Physician: MANI DONOHUE MD [facility] Dexa Axial Skeleton - 03/31/211105 HISTORY: The patient is a 75-year-old postmenopausal [...] density of the femurs bilaterally is 0.748 gm/ea5uoeyr is 74% of that of young normals [...] probability of hip fracture of 3.5%. Code 24309 Dictating Physician: MARCELA EVANS MD Electronically Signed by: MARCELA EVANS MD Dic Date/Time: 03/31/21 111 Sign date/Time: 03/31/21 111 Main Donohue MD IMG BI PROCEDURES Final Result from Last 3 Months or Most Recently Relevant to Health Maintenance Insurance [place] [employer] [employer] [place] Care Teams Fruit Or Nut Crops Farm Manager Relationship Specialty Start Date End Date Laura Mensah MD [address] [place] [address] PCP - General 08/03/23
--- OUTSIDE RECORDS SUMMARY | 2024-07-23 14:59 | XMS_ITS | Encounter Summary ---
Author Organization [facility] Address [address] [place] [phone] Care Team Providers Care Training Mgr Name Role Phone Laura Mensah MD Primary Care Provider [phone] Reason for Visit * Reason Onset Date Comments Medication Problem 07/03/2024 Lisinopril Encounter Details Date Type Department Care Team (Late st Contact Info) Description 07/03/2024 Telephone Adult Medicine [facility] [address] [place] [address] Laura Mensah MD [address] [place] [address] Medication Problem (Lisinopril) Social History Tobacco Use Types Packs/Day Years Used Date Smoking Tobacco: Never Assessed Comments Unknown Sex and Gender Information Value Date Recorded Sex Assigned at Not on file Legal Sex Female 5:12 PM EST Gender Identity Not on file Sexual Orientation Not on file documented as of this encounter Progress Notes * Meseret Chin MA - 07/06/2024 11:09 AM EST Pt called-she wants to go back on Lisinopril/HCTZ that she was on a few yrs ago. She is currently on Amlodipine 5mg and does not like the side effects.-ankle swelling. Please advise. * Zully Layton MA - 07/03/2024 3:42 PM EST Please review and advise. * Demetria Lawton - 07/03/2024 12:32 PM EST Patient is stating that she does not like the Lisinopril. States she is having side affects. Feet swollen and ankles, and would like her original medication she was taking. No name for original meds. documented in this encounter Plan of Treatment Upcoming Encounters Date Type Department Care Team (Late st Contact Info) Description 08/01/2024 5:00 PM EST Office Visit Adult [address] [phone] Laura Mensah MD [address] [place], [place] 08/29/2024 8:45 AM EDT Appointment Radiology Department [address] [phone] 09/05/2024 2:30 PM EDT Office Visit [address] [phone] Laura Mensah MD [facility] [place] documented as of this encounter Visit Diagnoses Not on filedocumented in this encounter Care Teams Training Mgr Relationship Specialty Start Date End Date Laura Mensah MD [facility] [place] PCP - General 08/03/23 documented as of this encounter
--- OUTSIDE RECORDS SUMMARY | 2024-07-23 14:59 | XMS_ITS ---
Author Organization [facility] Address [address] [facility] [address] [place] [address] Care Team Providers Care Eligibility Services Representative Name Role Phone PONCHO DONOHUE Primary Care Provider Results Component Value Reference Range Notes DIGOXIN LEVEL Reviewed date:05/10/2023 06:03:27 PM Interpretation: Performing Lab: Notes/Report: Original Ordering Provider: PONCHO DONOHUE MD [employer] [address] Decorator Mannequin - Candice Alford MD DIGOXIN LEVEL 0.3 0.5-2.0 ng/ml REASON FOR VISIT Critical Dig Level Encounters Encounter Location Date Provider Diagnosis [facility] [address] [facility] [address] [place] [address] 05/05/2023 PONCHO DONOHUE Digoxin poisoning of undetermined intent, initial encounter T46.0X4A Assessments Encounter Date Diagnosis (ICD Code) Assessment Notes Treatment Notes Treatment Clinical Notes Section Notes 05/05/2023 Digoxin poisoning of undetermined intent, initial encounter (ICD-10 - T46.0X4A) Plan Of Treatment No Information Progress Notes * Giles LYNCHDOB:[birth year] (77 yo F)Acc No.[id number]:05/05/2023 Patient:?Alina Lynchjessy :1945???Age:77 Y???Sex:Female Address:[address] [place] [address], [address] Subjective: * Chief Complaints: * ???Critical Dig Level * Medical History:? * Surgical History:? * Hospitalization/Major Diagno stic Procedure:? * Medications:? Objective: Assessment: * Assessment: 1.?Digoxin poisoning of unde termined intent, initial encounter - T46.0X4A? Plan: * Treatment: * Procedure Codes:? * true * Date:? Generated for Gabriel yu/Helen/Jacintaitting on:?07/23/2024 02:58 PM EST
--- OUTSIDE RECORDS SUMMARY | 2024-07-23 14:59 | XMS_ITS ---
Author Organization [facility] Address [address] [place] [address] Care Team Providers Care Medical Office Clerk Name Role Phone MANI HAHN Primary Care Provider [phone] Allergies Allergen (clinical drug ingredient) Drug/Non Drug Allergy documented on EMR Reaction Allergy Type Onset Date Status pantoprazole Protonix TBEC (uncoded) Unknown Allergy Active amlodipine Amlodipine Besylate edema, contipation Drug Allergy Active Results Component Value Reference Range Notes DIGOXIN LEVEL Reviewed date:05/05/2023 01:39:03 PM Interpretation: Performing Lab: Notes/Report: [employer], [place] [address] [employer] Specialist - Candice Alford MD DIGOXIN LEVEL 2.9 0.5-2.0 ng/ml JENELLE GREENE CALLED CRITICAL RESULTS AT [id number] TO AND READ BACK BY DR. HAHN ELECTROLYTES Reviewed date:05/05/2023 01:39:03 PM Interpretation: Performing Lab: Notes/Report: SODIUM 142 135-145 mEq/L POTASSIUM 5.0 3.5-5.5 mmol/L CHLORIDE 105 96-110 mmol/L CO2 31 21-32 mmol/L ANION GAP 6 3-11 PT/INR Reviewed date:05/05/2023 01:39:03 PM Interpretation: Performing Lab: Notes/Report: Original Ordering Provider: MANI HAHN MD [employer], [place] [address] Rehabilitation Construction Specialist - Candice Alford MD PROTHROMBIN TIME 26.8 [...] W/U Status Risk Notes Problem Essential hypertension ([id number]) Essential (primary) hypertension (I10) Active confirmed Vital Signs Temperature 98.2 degrees Fahrenheit 05/04/20 Blood pressure systolic 144 mm Hg 05/04/20 23 Blood pressure diastolic 74 mm Hg 023 Heart Rate 65 /min 05/04/2023 Height 62 in 05/04/2023 Weight 129 lbs 05/04/2023 BMI 23.59 kg/m2 05/04/2023 Encounters Encounter Location Date Provider Diagnosis [address] [place] [address] 05/04/2023 MANI HAHN Essential (primary) hypertension I10 ; Digoxin poisoning of undetermined intent, subsequent encounter T46.0X4D and Chronic atrial fibrillation, unspecified I48.20 Assessments Encounter Date Diagnosis (ICD Code) Assessment Notes Treatment Notes Treatment Clinical Notes Section Notes 05/04/2023 Essential (primary) hypertension (ICD-10 - I10) 05/04/2023 Digoxin poisoning of undetermined intent, subsequent encounter (ICD-10 - T46.0X4D) 05/04/23 Was in [facility] [place] [facility] with nausea and right side chest [...] * Alexandra LYNCH:[birth year] (77 yo F)Acc No.[id number]:05/04/2023 Progress Notes Patient:?Giles Lynch Provider:?Mani Hahn MD :1945???Age:77 Y???Sex:Female D ate:05/04/2023 Address:[address] [place] [address] Subjective: * Chief Complaints: * ???Follow-Up:Last Labs: [...] encounter - T46.0X4D (Primary), 05/04/23 Was in [facility] with nausea and right side chest [...] Weeks * Billing Information: * Visit Code:? 05886 Office Visit, Est Pt., Level 4. * Procedure Codes:? * Sign off status: Completed true * Provider:?Mani Hahn MD Date:?2022 Generated for Gabriel yu/Helen/Stalin on:?07/23/2024 02:58 PM EST
== END 2024-07-23 13:32 | disposition home or self-care (01) ==
LOC: HO.ACS 13:07
PROVIDERS: PCP Student in an Organized Health Care Education/Training Program; Visit Provider Internal Medicine
DX: Z79.01 Long term (current) use of anticoagulants (principal)

== ENCOUNTER → 2024-07-23 13:07 | Outpatient (BNVA) | payer OTHER, SELFPAY | PROVIDERS: PCP Student in an Organized Health Care Education/Training Program; Visit Provider Internal Medicine | DX: I48.20 Chronic atrial fibrillation, unspecified (principal); Z79.01 Long term (current) use of anticoagulants; Z51.81 Encounter for therapeutic drug level monitoring | CPT/HCPCS: 85610; 99211 ==

== ENCOUNTER 2024-08-22 13:05 | Outpatient (AMB) | payer OTHER, SELFPAY ==
--- NOTE | 2024-08-22 13:30 | MHC.OFFVISCO ---
Intake Intake Visit Reasons: Anticoagulation Allergies pantoprazole [From Protonix] Allergy (Severe, Verified 08/22/24 13:22) Palpitations Medication List - Last Reconciled 08/22/24 by Tonia Benitez RN cholecalciferol (vitamin D3) 25 mcg PO DAILY docusate sodium 100 mg PO BID PRN lisinopril-hydrochlorothiazide 10-12.5 mg 1 tab PO DAILY metoprolol succinate ER (Toprol XL) 75 mg PO DAILY warfarin See Protocol 5 mg orally 2.5mg x 5 days / week; Nursing Note INR: 2.0- in therapeutic range 2-3 Medications and supplements reviewed- amlodipine d/c approx 3 weeks ago, now lisinopril/hctz No changes in health, diet, medications, or supplements, Denies any signs and symptoms of bleeding or bruising or clotting. Bleeding, bruising, clotting discussed Nutritional guidance given - no greens for 2 days, eat a red today Dose: 2.5mg x 5 F/U INR: 2 weeks Patient verbalizes understanding of instructions given Anti-Coag Initial Assessment Social Hx Patient Tobacco Use Status: Never used Tobacco alcohol intake: never Cardiovascular Hx: HTN, Arrhythmias, Rheumatic Fever, Varicose Veins and Other Lung Disease HX: DVT/PE Musculoskeletal Hx: Other GI Hx: Hemorrhoids and Other Cancer HX: No Psych. Illness/Depression: Yes (pt states no - md hx states yes ) Questionnaires HAS-BLED Does the patient had uncontrolled Hypertension?: No Does the patient have renal disease?: No Does the patient have liver disease?: No Does the patient have a history of stroke?: No Has the patient had major bleeding or predisposition to bleeding?: No Does the patient have labile INRs?: Yes Is the patient over 65 years of age?: Yes Is the patient on medications that gives them a predisposition to bleeding?: Yes Does the patient use alcohol?: No HAS-BLED Score: 3 CHADSVASC Age: 75 or over Gender: Female Does the patient have a history of CHF?: No Does the patient have a history of Hypertension?: Yes Does the patient have a history of Stroke/TIA/Thromboembolism?: No Does the patient have a history of Vascular Disease (prior [place], PAD or aortic plaque)?: No Does the patient have a history of Diabetes?: No CHADS VACS Score: 4 Gibson Prediction Score Rsk VTE Active Cancer: No Previous VTE, excluding superficial vein thrombosis: No Reduced mobility: No Already known Thrombophilic Condition: No With-in last month Trauma and/or Surgery: No Elderly 70 year or older: Yes Heart and/or Respiratory Failure: No Acute Myocardial infarction and/or Ischemic Stroke: No Acute Infection and/or Rheumatologic Disorder: No Obesity (BMI 30 or greater): No Ongoing Hormonal Treatment: No Score: 1 Gibson Score less than 4; Low Risk of VTE Gibson Score 4 or greater; High Risk of VTE Coding Level of Care Code Est Patient Level 1 Diagnoses Current use of anticoagulant therapy Z79.01 Results AMB INR Fingerstick AMB INR Fingerstick 2.0 Last Edit by Tonia Benitez RN on 08/22/24 13:33 interface delay Assessment & Plan Assessment & Plan (1) Current use of anticoagulant therapy: 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
--- OUTSIDE RECORDS SUMMARY | 2024-08-22 15:31 | XMS_ITS | Patient Health Record ---
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 Name Role Phone PONCHO DONOHUE Primary Care Provider Allergies Allergen (clinical drug ingredient) Drug/Non Drug Allergy documented on EMR Reaction Allergy Type Onset Date Status pantoprazole Protonix TBEC (uncoded) Unknown Allergy Active amlodipine Amlodipine Besylate edema, contipation Drug Allergy Active Reason For Referral No Information Medications Medication SIG (Take, Route, Frequency, Duration) Notes Start Date End Date Status hydrALAZINE HCl 50 MG 1 tablet Orally Twice a day for 30 day(s) 01/22/2019 Not-Taking Meclizine HCl 12.5 MG 1 tablets as needed Orally three times a day for 10 days 07/03/2021 Not-Taking Celebrex 200 MG 1 capsule W/ FOOD Orally Once a day for 90 Not-Taking Digoxin 125 MCG TAKE 1 TABLET BY MOUTH EVERY DAY Orally Not-Taking Cyclobenzaprine HCl 5 MG 1 tablet Orally Three times a day for 14 days Not-Taking ALPRAZolam 0.5 MG 1 tablet Orally Twice a day for 10 days 01/13/2023 Not-Taking Gas-X 80 MG 1 tablet after meals and at bedtime as needed Orally Four times a day PRN Not-Taking Ramipril 5 MG 1 capsule Orally Once a day for 30 days Not-Taking Omeprazole 20 MG 1 capsule Orally Once a day for 90 days Not-Taking Vitamin D 1000 UNIT 1 tablet Orally Daily TAKE 1 TABLET DAILY. 05/08/2012 Unknown amLODIPine Besylate 2.5 MG TAKE 1 TABLET BY MOUTH EVERY DAY for 90 Active Toprol XL 50 MG TAKE 1 TABLET BY MOUTH EVERY DAY for 90 Active Furosemide 20 MG TAKE 1 TABLET BY MOUTH EVERY DAY NEEDED FOR 30 DAYS for 90 days as needed in summer Active Fluticasone Propionate 50 MCG/ACT Nasal Daily for 14 USE 2 SPRAYS IN EACH NOSTRIL ONCE DAILY 02/21/2015 Not-Taking Warfarin Sodium 5 MG TAKE 1/2 -1 TABLET ONCE DAILY DIRECTED Orally Once a day for 90 days Active Ramipril 5 MG 1 capsule Orally Once a day 03/24/2023 Not-Taking Diflucan 150 MG 1 tablet Orally Once a day for 2 08/30/2016 Not-Taking Cipro 250 MG 1 tablet Orally every 12 hrs for 5 days 12/10/2016 Not-Taking Digoxin 250 MCG TAKE 1/2 TABLET BY MOUTH EVERY DAY Orally Once a day Active Hydrocortisone 2.5 % 1 application to affected area Externally Twice a day for 30 day(s) 12/16/2015 Not-Taking Lisinopril 5 MG 1 tablet Orally Once a day for 30 day(s) 09/13/2016 Not-Taking cloNIDine HCl 0.1 MG 1 tablet [...] a day for 30 day(s) 02/13/2019 Not-Taking Immunizations Vaccine Route Administration Date Status Comme nts Pneumococcal polysaccharide PPV23 Unknown 09/13/2016 Refused Td (adult) preservative free IM Intramuscular 02/03/2007 Administered Tdap IM Intramuscular 02/13/2019 Administered Social History Tobacco Use: Social History Observation Description Date Details (start date - stop date) Never Smoker NA - NA Tobacco Use/Smoking Question Answer Notes Are you a nonsmoker Additional Findings: Tobacco Non-User Aggressive non-smoker Alcohol Screen (Audit-C) Question Answer Notes Did you have a drink containing alcohol in the p ast year? No Points 0 Interpretation Negative Tobacco use other than smoking: Question Answer Notes Are you an other tobacco user? No Section Notes: in 1969 Carlos A Dunlap left her in 1974 and moved back to [place]. Has 2 daughters. 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 Has dtr Taina 18 yr and son Krzysztof 13 yr ([phone]). Visits her regularly. Second dtr Patria Dorman 47 yr to [facility]. He works at [employer] . She works for an [employer] in .have a son Jerrell 27 yr Psychology Clinician (living with pt) . Patricio 18 yr (6 ft tall) and Kezia 14 yr. Live in [place] ([phone]) Goes to eat with her every tuesday. She never remarried Her mother helped her raise her children. EDUCATION: Middle school in [place]. Worked in [employer]. WORK HISTORY: Came in [facility] in 1972. left Couldnt speak beninese Went on Welfare Mother came from [place] 18 months later So she started working at [employer] for 4 years Then to [employer] for 20 years. Went on disability for back issues at age 64 yr. RESIDENCE Lives in her house at [address] [place] [address] for 26 years . Drives her car. Has profit sharing. On Social Security $1258 a month. Dips in her Profit sharing when she needs. Has some savings.Grandson gives her $400 a month. HOBJANICE LOves nature Drives her car around. in 1969 Carlos A Dunlap left her in 1974 and moved back to [facility]. Has 2 daughters. 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 Has dtr Taina 17 yr and son Krzysztof 13 yr ([phone]). Visits her regularly. Second dtr Patria Dorman 47 yr to [facility]. He works at [employer] . She works for an [employer] in .have a son Jerrell 27 yr Psychology Clinician (living with pt) . Patricio 18 yr (6 ft tall) and Kezia 14 yr. Live in [place] ([phone]) Goes to eat with her every tuesday. She never remarried Her mother helped her raise her children. EDUCATION: Middle school in [place]. Worked in [employer]. WORK HISTORY: Came in [facility] in 1972. left Couldnt speak beninese Went on Welfare Mother came from [place] 18 months later So she started working at [employer] for 4 years Then to [employer] for 20 years. Went on disability for back issues at age 64 yr. RESIDENCE Lives in her house at [address] [facility] for 26 years . Drives her car. Has profit sharing. On Social Security $1258 a month. Dips in her Profit sharing when she needs. Has some savings.Herbert gives her $400 a month. HOBBIES LOves nature Drives her car around. in 1969 Carlos A Shookyolishasmukh left her in 1974 and moved back to [facility]. Has 2 daughters. 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 Has dtr Taina 20 yr aand going to [facility] and son Krzysztof 15yr ([phone]). Visits her regularly. Second dtr Patria Lakia 51 yr to [employer]. He works at [employer] . She works for an [employer] in .have a son Jerrell 30yr Psychology Clinician (lived with pt for 4 yrs and moved out 2yrs ago to his own house in [place] Has a GF) . Patricio 21yr (6 ft tall and now living with patient) and Kezia 17 yr. Live in [place] ([phone]) Sold their big house and bought a small house. Goes to eat with her every tuesday. She never remarried Her mother helped her raise her children. EDUCATION: Middle school in [facility]. 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 WORK HISTORY: Came in [facility] in 1972. left Couldnt speak beninese Went on Welfare Mother came from [place] 18 months later So she started working at [employer] in [place] for 4 years Then to [employer] for 20 years. Went on disability for back issues at age 64 yr. RESIDENCE Lives in her house at [address] [facility] for 26 years . Drives her car. Has profit sharing. On Social Security $1258 a month. Dips in her Profit sharing when she needs. Has some savings.Grandson Jerrell gives her $400 a month.Lived with her Now moved to his house in [place] in 2019 Has a GF Works for [employer] Another grandson Patricio now living with her Goes to [employer] [facility] [employer] [employer] Works at [employer] Gives her some money ! HOBBIES LOves nature Drives her car around. in 1969 Carlos A Dunlap left her in 1974 and moved back to [facility]. Has 2 daughters. 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 Visits her regularly. Second dtr Patria Dorman 50 yr to [facility]. He works at [employer] . She works for an [employer] in .have a son Jerrell 30yr Psychology Clinician (lived with pt for 4 yrs and moved out 2yrs ago to his own house in [place] Has a GF) . Patricio 20yr (6 ft tall and now living with patient) and Kezia 16 yr. Live in [place] ([phone]) Sold their big house and bought a small house. Goes to eat with her every tuesday. She never remarried Her mother helped her raise her children. EDUCATION: Middle school in [facility]. Worked in [employer] WORK HISTORY: Came in [facility] in 1972. left Couldnt speak beninese Went on Welfare Mother came from [place] 18 months later So she started working at [employer] in [place] for 4 years Then to [employer] for 20 years. Went on disability for back issues at age 64 yr. RESIDENCE Lives in her house at [address] [place] [address] for 26 years . Drives her car. Has profit sharing. On Social Security $1258 a month. Dips in her Profit sharing when she needs. Has some savings.Grandson gives her $400 a month. HOBBIAMY LOves nature Drives her car around. in 1969 Carlos A Dunlap left her in 1974 and moved back to [facility]. Has 2 daughters. 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 Has dtr Taina 17 yr and son Krzysztof 13 yr ([phone]). Visits her regularly. Second dtr Patria Dorman 47 yr to [place]. He works at [employer] . She works for an [employer] in .have a son Jerrell 27 yr Psychology Clinician (living with pt) . Patricio 18 yr (6 ft tall) and Kezia 14 yr. Live in [place] ([phone]) Goes to eat with her every tuesday. She never remarried Her mother helped her raise her children. EDUCATION: Middle school in [facility]. Worked in [employer]. WORK HISTORY: Came in [facility] in 1972. left Jennifer speak beninese Went on Welfare Mother came from [place] 18 months later So she started working at [employer] in [place] for 4 years Then to [employer] for 20 years. Went on disability for back issues at age 64 yr. RESIDENCE Lives in her house at [address] [place] [address] for 26 years . Drives her car. Has profit sharing. On Social Security $1258 a month. Dips in her Profit sharing when she needs. Has some savings.Grandson gives her $400 a month. HOBBIES LOves nature Drives her car around. in 1969 Carlos A Dunlap left her in 1974 and moved back to [facility] [place]. Has 2 daughters. 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 Has dtr Taina 17 yr and son Krzysztof 13 yr ([phone]). Visits her regularly. Second dtr Patria Dorman 47 yr to [place]. He works at [employer] . She works for an [employer] in .have a son Jerrell 27 yr Psychology Clinician (living with pt) . Patricio 18 yr (6 ft tall) and Kezia 14 yr. Live in [place] ([phone]) Goes to eat with her every tuesday. She never remarried Her mother helped her raise her children. EDUCATION: Middle school in [facility]. Worked in [employer]. WORK HISTORY: Came in [facility] in 1972. left Jennifer speak beninese Went on Welfare Mother came from [employer] 18 months later So she started working at [employer] in [place] for 4 years Then to [employer] for 20 years. Went on disability for back issues at age 64 yr. RESIDENCE Lives in her house at [address] [place] [address] for 26 years . Drives her car. Has profit sharing. On Social Security $1258 a month. Dips in her Profit sharing when she needs. Has some savings.Grandson gives her $400 a month. HOBBIES LOves nature Drives her car around. in 1969 Carlos A Dunlap left her in 1974 and moved back to [facility] [place]. Has 2 daughters. 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 Has dtr Taina 20 yr aand going to [facility] and son Krzysztof 15yr ([phone]). Visits her regularly. Second dtr Patria Dorman 51 yr to [facility]. He works at [employer] . She works for an [employer] in .have a son Jerrell 30yr Psychology Clinician (lived with pt for 4 yrs and moved out 2yrs ago to his own house in [place] Has a GF) . Patricio 21yr (6 ft tall and now living with patient) and Kezia 17 yr. Live in [place] ([phone]) Sold their big house and bought a small house. Goes to eat with her every tuesday. She never remarried Her mother helped her raise her children. EDUCATION: Middle school in [facility]. Worked in [employer] WORK HISTORY: Came in [facility] in 1972. left Couldnt speak beninese Went on Welfare Mother came from [employer] 18 months later So she started working at [employer] in [place] for 4 years Then to [employer] for 20 years. Went on disability for back issues at age 64 yr. RESIDENCE Lives in her house at [address] [place] [address] for 26 years . Drives her car. Has profit sharing. On Social Security $1258 a month. Dips in her Profit sharing when she needs. Has some savings.Grandson Jerrell gives her $400 a month.Lived with her Now moved to his house in [place] in 2019 Has a GF Works for [email or web address] Another grandson Patricio now living with her Goes to [employer] [facility] Works at [employer] Gives her some money ! HOBBIES LOves nature Drives her car around. in 1969 Carlos A Dunlap left her in 1974 and moved back to [facility]. Has 2 daughters. 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 Visits her regularly. Second dtr Patria Dorman 50 yr to [facility] [employer]. He works at [employer] [facility] . She works for an [employer] in .have a son Jerrell 30yr Psychology Clinician (lived with pt for 4 yrs and moved out 2yrs ago to his own house in [place] Has a GF) . Patricio 21yr (6 ft tall and now living with patient) and Kezia 17 yr. Live in [place] ([phone]) Sold their big house and bought a small house. Goes to eat with her every tuesday. She never remarried Her mother helped her raise her children. EDUCATION: Middle school in [facility]. Worked in [employer]. WORK HISTORY: Came in [facility] in 1972. left Couldnt speak beninese Went on Welfare Mother came from [place] 18 months later So she started working at [employer] in [place] for 4 years Then to [employer] for 20 years. Went on disability for back issues at age 64 yr. RESIDENCE Lives in her house at [address] [place] [address] for 26 years . Drives her car. Has profit sharing. On Social Security $1258 a month. Dips in her Profit sharing when she needs. Has some savings.Grandson Jerrell gives her $400 a month.Lived with her Now moved to his house in [place] in 2019 Has a GF Works for [employer] Another grandson Patricio now living with her Goes to [facility] [employer] Works at [employer] Gives her some money ! HOBBIES LOves nature Drives her car around. in 1969 Carlos A Dunlap left her in 1974 and moved back to [facility]. Has 2 daughters. 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 Has dtr Taina 20 yr aand going to [employer] and son Krzysztof 15yr ([phone]). Visits her regularly. Second dtr Santoshelijah Lakia 50 yr to [place]. He works at [employer] [facility] . She works for an [employer] in .have a son Jerrell 30yr Psychology Clinician (lived with pt for 4 yrs and moved out 2yrs ago to his own house in [place] Has a GF) . Patricio 21yr (6 ft tall and now living with patient) and Kezia 17 yr. Live in [place] ([phone]) Sold their big house and bought a small house. Goes to eat with her every tuesday. She never remarried Her mother helped her raise her children. EDUCATION: Middle school in [facility]. Worked in [employer]. WORK HISTORY: Came in [facility] in 1972. left Couldnt speak beninese Went on Welfare Mother came from [employer] 18 months later So she started working at [employer] for 4 years Then to [employer] for 20 years. Went on disability for back issues at age 64 yr. RESIDENCE Lives in her house at [address] [place] [address] for 26 years . Drives her car. Has profit sharing. On Social Security $1258 a month. Dips in her Profit sharing when she needs. Has some savings.Grandson Jerrell gives her $400 a month.Lived with her Now moved to his house in [place] in 2019 Has a GF Works for [employer] Another grandson Patricio now living with her Goes to [employer] Works at [employer] Gives her some money ! HOBBIES LOves nature Drives her car around. in 1969 Carlos A Dunlap left her in 1974 and moved back to [facility] [place]. Has 2 daughters. 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 Has dtr Taina 20 yr aand going to [facility] and son Krzysztof 15yr ([phone]). Visits her regularly. Second dtr Patria Lakia 50 yr to [facility]. He works at [employer] . She works for an [employer] in .have a son Jerrell 30yr Psychology Clinician (lived with pt for 4 yrs and moved out 2yrs ago to his own house in [place] Has a GF) . Patricio 21yr (6 ft tall and now living with patient) and Kezia 17 yr. Live in [place] ([phone]) Sold their big house and bought a small house. Goes to eat with her every tuesday. She never remarried Her mother helped her raise her children. EDUCATION: Middle school in [place] Worked in [employer]. WORK HISTORY: Came in [facility] in 1972. left Couldnt speak beninese Went on Welfare Mother came from [employer] 18 months later So she started working at [employer] for 4 years Then to [employer] for 20 years. Went on disability for back issues at age 64 yr. RESIDENCE Lives in her house at [address] [place] [address] for 26 years . Drives her car. Has profit sharing. On Social Security $1258 a month. Dips in her Profit sharing when she needs. Has some savings.Grandjaziel Allan gives her $400 a month.Lived with her Now moved to his house in [place] in 2019 Has a GF Works for [employer] [facility] [employer] Another grandson Patricio now living with her Goes to [facility] [employer] Works at [employer] Gives her some money ! HOBBIES LOves nature Drives her car around. in 1969 Carlos A Dunlap left her in 1974 and moved back to [facility] [place]. Has 2 daughters. 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 Has dtr Taina 20 yr aand going to [facility] and son Krzysztof 15yr ([phone]). Visits her regularly. Second dtr Patria Dorman 50 yr to [employer]. He works at [employer] . She works for an [employer] in .have a son Jerrell 30yr Psychology Clinician (lived with pt for 4 yrs and moved out 2yrs ago to his own house in [place] Has a GF) . Patricio 21yr (6 ft tall and now living with patient) and Kezia 18 yr. Live in [place] ([phone]) Sold their big house and bought a small house. Goes to eat with her every tuesday. She never remarried Her mother helped her raise her children. EDUCATION: Middle school in [facility]. 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 WORK HISTORY: Came in [facility] in 1972. left Couldnt speak beninese Went on Welfare Mother came from [place] 18 months later So she started working at [employer] in [place] for 4 years Then to [employer] for 20 years. Went on disability for back issues at age 64 yr. RESIDENCE Lives in her house at [address] [place] [address] for 26 years . Drives her car. Has profit sharing. On Social Security $1258 a month. Dips in her Profit sharing when she needs. Has some savings.Grandjaziel Allan gives her $400 a month.Lived with her Now moved to his house in [place] in 2019 Has a GF Works for [employer] Another grandson Patricio now living with her Goes to [facility] Works at [employer] Gives her some money ! HOBBIES LOves nature Drives her car around. in 1969 Carlos A Dunlap left her in 1974 and moved back to [facility]. Has 2 daughters. 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 Has dtr Taina 20 yr aand going to [employer] and son Krzysztof 15yr ([phone]). Visits her regularly. Second dtr Patria Dorman 51 yr to [employer]. He works at [employer] . She works for an [employer] in .have a son Jerrell 30yr Psychology Clinician (lived with pt for 4 yrs and moved out 2yrs ago to his own house in [place] Has a GF) . Patricio 21yr (6 ft tall and now living with patient) and Kezia 18 yr. Live in [place] ([phone]) Sold their big house and bought a small house. Goes to eat with her every tuesday. She never remarried Her mother helped her raise her children. EDUCATION: Middle school in [facility]. 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 WORK HISTORY: Came in [facility] in 1972. left Couldnt speak beninese Went on Welfare Mother came from [place] 18 months later So she started working at [employer] in [place] for 4 years Then to [employer] for 20 years. Went on disability for back issues at age 64 yr. RESIDENCE Lives in her house at [address] [place] [address] for 26 years . Drives her car. Has profit sharing. On Social Security $1258 a month. Dips in her Profit sharing when she needs. Has some savings.Grandson Jerrell gives her $400 a month.Lived with her Now moved to his house in [place] in 2019 Has a GF Works for [employer] Another grandson Patricio now living with her Goes to [facility] Works at [employer] Gives her some money ! HOBBIES LOves nature Drives her car around. in 1969 aCrlos A Dunlap left her in 1974 and moved back to [facility]. Has 2 daughters. 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 Has dtr Taina 20 yr aand going to [employer] and son Krzysztof 15yr ([phone]). Visits her regularly. Second dtr Patria Dorman 50 yr to [facility]. He works at [employer] . She works for an [employer] in .have a son Jerrell 30yr Psychology Clinician (lived with pt for 4 yrs and moved out 2yrs ago to his own house in [place] Has a GF) . Patricio 21yr (6 ft tall and now living with patient) and Kezia 18 yr. Live in [place] ([phone]) Sold their big house and bought a small house. Goes to eat with her every tuesday. She never remarried Her mother helped her raise her children. EDUCATION: Middle school in [facility]. Worked in [employer]. WORK HISTORY: Came in [facility] in 1972. left Couldnt speak beninese Went on Welfare Mother came from [employer] 18 months later So she started working at [employer] in [place] for 4 years Then to [employer] for 20 years. Went on disability for back issues at age 64 yr. RESIDENCE Lives in her house at [address] [place] [address] for 26 years . Drives her car. Has profit sharing. On Social Security $1258 a month. Dips in her Profit sharing when she needs. Has some savings.Grandson Jerrell gives her $400 a month.Lived with her Now moved to his house in [place] in 2019 Has a GF Works for [employer] Another grandson Patricio now living with her Goes to [employer] [employer] Works at [employer] Gives her some money ! HOBBIES LOves nature Drives her car around. in 1969 Carlos A Dunlap left her in 1974 and moved back to [facility]. Has 2 daughters. 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 Has dtr Taina 20 yr aand going to [employer] and son Krzysztof 15yr ([phone]). Visits her regularly. Second dtr Patria Dorman 51 yr to [facility]. He works at [employer] . She works for an [employer] in .have a son Jerrell 31yr Psychology Clinician (lived with pt for 4 yrs and moved out 2yrs ago to his own house in [place] Has a GF) . Patricio 21yr (6 ft tall and now living with patient) and Kezia 17 yr. Live in [place] ([phone]) Sold their big house and bought a small house. Goes to eat with her every tuesday. She never remarried Her mother helped her raise her children. EDUCATION: Middle school in [facility]. Worked in [employer]. WORK HISTORY: Came in [facility] in 1972. left Couldnt speak beninese Went on Welfare Mother came from [employer] 18 months later So she started working at [employer] in [place] for 4 years Then to [employer] for 20 years. Went on disability for back issues at age 64 yr. RESIDENCE Lives in her house at [address] [place] [address] for 26 years . Drives her car. Has profit sharing. On Social Security $1258 a month. Dips in her Profit sharing when she needs. Has some savings.Grandson Jerrell gives her $400 a month.Lived with her Now moved to his house in [place] in 2019 Has a GF Works for [employer] [facility] [employer] Another grandson Patricio now living with her Goes to [facility] Works at [employer] Gives her some money ! HOBBIAMY LOves nature Drives her car around. in 1969 Carlos A Dunlap left her in 1974 and moved back to [facility]. Has 2 daughters. 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 Has dtr Taina 17 yr and son Krzysztof 13 yr ([phone]). Visits her regularly. Second dtr Patria Dorman 47 yr to [employer]. He works at [employer] . She works for an [employer] in .have a son Jerrell 27 yr Psychology Clinician (living with pt) . Patricio 17 yr (6 ft tall) and Kezia 14 yr. Live in [place] ([phone]) Goes to eat with her every tuesday. She never remarried Her mother helped her raise her children. EDUCATION: Middle school in [facility]. Worked in [employer]. WORK HISTORY: Came in [facility] in 1972. left Couldnt speak beninese Went on Welfare Mother came from [employer] 18 months later So she started working at [employer] in [place] for 4 years Then to [employer] for 20 years. Went on disability for back issues at age 64 yr. RESIDENCE Lives in her house at [address] [place] [address] for 26 years . Drives her car. Has profit sharing. On Social Security $1258 a month. Dips in her Profit sharing when she needs. Has some savings.Grandson gives her $400 a month. HOBBIES LOves nature Drives her car around. in 1969 Carlos A Dunlap left her in 1974 and moved back to [facility]. Has 2 daughters. 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 Has dtr Taina 17 yr and son Krzysztof 13 yr ([phone]). Visits her regularly. Second dtr Patria Dorman 47 yr to [facility]. He works at [employer] . She works for an [employer] in .have a son Jerrell 27 yr Psychology Clinician (living with pt) . Patricio 17 yr (6 ft tall) and Kezia 14 yr. Live in [place] ([phone]) Goes to eat with her every tuesday. She never remarried Her mother helped her raise her children. EDUCATION: Middle school in [facility]. 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 WORK HISTORY: Came in [facility] in 1972. left Couldnt speak beninese Went on Welfare Mother came from [place] 18 months later So she started working at [employer] in [place] for 4 years Then to [employer] for 20 years. Went on disability for back issues at age 64 yr. RESIDENCE Lives in her house at [address] [place] [address] for 26 years . Drives her car. Has profit sharing. On Social Security $1258 a month. Dips in her Profit sharing when she needs. Has some savings.Grandson gives her $400 a month. HOBBIES LOves nature Drives her car around. in 1969 Carlos A Dunlap left her in 1974 and moved back to [facility]. Has 2 daughters. 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 Has dtr Taina 17 yr and son Krzysztof 13 yr ([phone]). Visits her regularly. Second dtr Patria Dorman 47 yr to [facility]. He works at [employer] [facility] [employer] . She works for an [employer] in .have a son Jerrell 27 yr Psychology Clinician (living with pt) . Patricio 17 yr (6 ft tall) and Kezia 14 yr. Live in [place] ([phone]) Goes to eat with her every tuesday. She never remarried Her mother helped her raise her children. EDUCATION: Middle school in [facility]. Worked in [employer]. WORK HISTORY: Came in [facility] in 1972. left Couldnt speak beninese Went on Welfare Mother came from [employer] 18 months later So she started working at [employer] for 4 years Then to [employer] for 20 years. Went on disability for back issues at age 64 yr. RESIDENCE Lives in her house at [address] [place] [address] for 26 years . Drives her car. Has profit sharing. On Social Security $1258 a month. Dips in her Profit sharing when she needs. Has some savings.Grandson gives her $400 a month. HOBJANICE LOves nature Drives her car around. in 1969 Carlos A Dunlap left her in 1974 and moved back to [facility]. Has 2 daughters. 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 Has dtr Taina 19 yr aand going to [employer] nd son Krzysztof 15yr ([phone]). Visits her regularly. Second dtr Patria Dorman 50 yr to [facility]. He works at [employer] [facility] [employer] [facility] . She works for an [employer] in .have a son Jerrell 30yr Psychology Clinician (lived with pt for 4 yrs and moved out 2yrs ago to his own house in [place] Has a GF) . Patricio 20yr (6 ft tall and now living with patient) and Kezia 16 yr. Live in [place] ([phone]) Sold their big house and bought a small house. Goes to eat with her every tuesday. She never remarried Her mother helped her raise her children. EDUCATION: Middle school in [place]. Worked in [employer]. WORK HISTORY: Came in [facility] in 1972. left Couldnt speak beninese Went on Welfare Mother came from [employer] 18 months later So she started working at [employer] in [place] for 4 years Then to [employer] for 20 years. Went on disability for back issues at age 64 yr. RESIDENCE Lives in her house at [address] [facility] for 26 years . Drives her car. Has profit sharing. On Social Security $1258 a month. Dips in her Profit sharing when she needs. Has some savings.Herbert gives her $400 a month. HOBBIES LOves nature Drives her car around. in 1969 Carlos A Dunlap left her in 1974 and moved back to [facility]. Has 2 daughters. 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 Has dtr Taina 20 yr aand going to [employer] and son Krzysztof 15yr ([phone]). Visits her regularly. Second dtr Patria Dorman 50 yr to [employer]. He works at [employer] . She works for an [employer] in .have a son Jerrell 30yr Psychology Clinician (lived with pt for 4 yrs and moved out 2yrs ago to his own house in [place] Has a GF) . Patricio 20yr (6 ft tall and now living with patient) and Kezia 17 yr. Live in [place] ([phone]) Sold their big house and bought a small house. Goes to eat with her every tuesday. She never remarried Her mother helped her raise her children. EDUCATION: Middle school in [facility]. 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 WORK HISTORY: Came in [facility] in 1972. left Couldnt speak beninese Went on Welfare Mother came from [place] 18 months later So she started working at [employer] in [place] for 4 years Then to [employer] for 20 years. Went on disability for back issues at age 64 yr. RESIDENCE Lives in her house at [address] [place] [address] for 26 years . Drives her car. Has profit sharing. On Social Security $1258 a month. Dips in her Profit sharing when she needs. Has some savings.Grandson Jerrell gives her $400 a month.Lived with her Now moved to his house in [place] in 2019 Has a GF Works for [employer] Another grandson Patricio now living with her Goes to [employer] [employer] Works at [employer] Gives her some money ! HOBBIES LOves nature Drives her car around. in 1969 Carlos A Dunlap left her in 1974 and moved back to [facility]. Has 2 daughters. 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 Has dtr Taina 20 yr aand going to [employer] and son Krzysztof 15yr ([phone]). Visits her regularly. Second dtr Patria Dorman 50 yr to [employer]. He works at [employer] . She works for an [employer] in .have a son Jerrell 30yr Psychology Clinician (lived with pt for 4 yrs and moved out 2yrs ago to his own house in [place] Has a GF) . Patricio 20yr (6 ft tall and now living with patient) and Kezia 17 yr. Live in [place] ([phone]) Sold their big house and bought a small house. Goes to eat with her every tuesday. She never remarried Her mother helped her raise her children. EDUCATION: Middle school in [facility]. Worked in [employer] WORK HISTORY: Came in [facility] in 1972. left Couldnt speak beninese Went on Welfare Mother came from [place] 18 months later So she started working at [employer] in [place] for 4 years Then to [employer] for 20 years. Went on disability for back issues at age 64 yr. RESIDENCE Lives in her house at [address] [place] [address] for 26 years . Drives her car. Has profit sharing. On Social Security $1258 a month. Dips in her Profit sharing when she needs. Has some savings.Grandson Jerrell gives her $400 a month.Lived with her Now moved to his house in [place] in 2019 Has a GF Works for [employer] [facility] Another grandson Patricio now living with her Goes to [facility] Works at [employer] Gives her some money ! HOBBIES LOves nature Drives her car around. in 1969 Carlos A Dunlap left her in 1974 and moved back to [facility]. Has 2 daughters. 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 Has dtr Taina 20 yr aand going to [employer] and son Krzysztof 15yr ([phone]). Visits her regularly. Second dtr Patria Dorman 50 yr to [employer]. He works at [employer] . She works for an [employer] in .have a son Jerrell 30yr Psychology Clinician (lived with pt for 4 yrs and moved out 2yrs ago to his own house in [place] Has a GF) . Patricio 20yr (6 ft tall and now living with patient) and Kezia 17 yr. Live in [place] ([phone]) Sold their big house and bought a small house. Goes to eat with her every tuesday. She never remarried Her mother helped her raise her children. EDUCATION: Middle school in [facility]. Worked in [employer] WORK HISTORY: Came in [facility] in 1972. left Couldnt speak beninese Went on Welfare Mother came from [place] 18 months later So she started working at [employer] in [place] for 4 years Then to [employer] for 20 years. Went on disability for back issues at age 64 yr. RESIDENCE Lives in her house at [address] [place] [address] for 26 years . Drives her car. Has profit sharing. On Social Security $1258 a month. Dips in her Profit sharing when she needs. Has some savings.Grandson Jerrell gives her $400 a month.Lived with her Now moved to his house in [place] in 2019 Has a GF Works for [employer] [facility] [employer] Another grandson Patricio now living with her Goes to [facility] Works at [employer] Gives her some money ! HOBBIES LOves nature Drives her car around. in 1969 Carlos A Dunlap left her in 1974 and moved back to [facility]. Has 2 daughters. 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 Has dtr Taina 17 yr and son Krzysztof 13 yr ([phone]). Visits her regularly. Second dtr Patria Dorman 47 yr to [employer]. He works at [employer] . She works for an [employer] in .have a son Jerrell 27 yr Psychology Clinician (living with pt) . Patricio 17 yr (6 ft tall) and Kezia 14 yr. Live in [place] ([phone]) Goes to eat with her every tuesday. She never remarried Her mother helped her raise her children. EDUCATION: Middle school in [facility]. Worked in [employer]. WORK HISTORY: Came in [facility] in 1972. left Couldnt speak beninese Went on Welfare Mother came from [place] 18 months later So she started working at [employer] for 4 years Then to [employer] for 20 years. Went on disability for back issues at age 64 yr. RESIDENCE Lives in her house at [address] [place] [address] for 26 years . Drives her car. Has profit sharing. On Social Security $1258 a month. Dips in her Profit sharing when she needs. Has some savings.Grandson gives her $400 a month. HOBBIES LOves nature Drives her car around. in 1969 Carlos A Dunlap left her in 1974 and moved back to [facility]. Has 2 daughters. 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 Has dtr Taina 17 yr and son Krzysztof 13 yr ([phone]). Visits her regularly. Second dtr Patria Dorman 47 yr to [employer]. He works at [employer] . She works for an [employer] in .have a son Jerrell 27 yr Psychology Clinician (living with pt) . Patricio 17 yr (6 ft tall) and Kezia 14 yr. Live in [place] ([phone]) Goes to eat with her every tuesday. She never remarried Her mother helped her raise her children. EDUCATION: Middle school in [facility]. Worked in [employer]. WORK HISTORY: Came in [facility] in 1972. left Couldnt speak beninese Went on Welfare Mother came from [place] 18 months later So she started working at [employer] for 4 years Then to [employer] for 20 years. Went on disability for back issues at age 64 yr. RESIDENCE Lives in her house at [address] [place] [address] for 26 years . Drives her car. Has profit sharing. On Social Security $1258 a month. Dips in her Profit sharing when she needs. Has some savings.Grandson gives her $400 a month. HOBBIES LOves nature Drives her car around. in 1969 Carlos A Dunlap left her in 1974 and moved back to [facility]. Has 2 daughters. 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 Has dtr Taina 17 yr and son Krzysztof 13 yr ([phone]). Visits her regularly. Second dtr Patria Dorman 47 yr to [facility]. He works at [employer] . She works for an [employer] in .have a son Jerrell 27 yr Psychology Clinician (living with pt) . Patricio 17 yr (6 ft tall) and Kezia 14 yr. Live in [place] ([phone]) Goes to eat with her every tuesday. She never remarried Her mother helped her raise her children. EDUCATION: Middle school in [place]. Worked in [employer]. WORK HISTORY: Came in [facility] in 1972. left Couldnt speak beninese Went on Welfare Mother came from [employer] 18 months later So she started working at [employer] for 4 years Then to [employer] for 20 years. Went on disability for back issues at age 64 yr. RESIDENCE Lives in her house at [address] [place] [address] for 26 years . Drives her car. Has profit sharing. On Social Security $1258 a month. Dips in her Profit sharing when she needs. Has some savings.Grandson gives her $400 a month. HOBJANICE LOves nature Drives her car around. in 1969 Carlos A Dunlap left her in 1974 and moved back to [facility]. Has 2 daughters. 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 Has dtr Taina 17 yr and son Krzysztof 13 yr ([phone]). Visits her regularly. Second dtr Patria Dorman 47 yr to [facility]. He works at [employer] . She works for an [employer] in .have a son Jerrell 27 yr Psychology Clinician (living with pt) . Patricio 17 yr (6 ft tall) and Kezia 14 yr. Live in [place] ([phone]) Goes to eat with her every tuesday. She never remarried Her mother helped her raise her children. EDUCATION: Middle school in [place]. Worked in [employer]. WORK HISTORY: Came in [facility] in 1972. left Couldnt speak beninese Went on Welfare Mother came from [employer] 18 months later So she started working at [employer] for 4 years Then to [employer] for 20 years. Went on disability for back issues at age 64 yr. RESIDENCE Lives in her house at [address] [place] [address] for 26 years . Drives her car. Has profit sharing. On Social Security $1258 a month. Dips in her Profit sharing when she needs. Has some savings.Grandson gives her $400 a month. HOBBIES LOves nature Drives her car around. in 1969 Carlos A Dunlap left her in 1974 and moved back to [facility]. Has 2 daughters. 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 Has dtr Taina 17 yr and son Krzysztof 13 yr ([phone]). Visits her regularly. Second dtr Elyrudy Lakia 46 yr to [facility]. He works at [employer] . She works for an [employer] in .have a son Jerrell 27 yr Psychology Clinician (living with pt) . Patricio 17 yr (6 ft tall) and Kezia 14 yr. Live in [place] ([phone]) Goes to eat with her every tuesday. She never remarried Her mother helped her raise her children. EDUCATION: Middle school in [facility]. 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 WORK HISTORY: Came in [facility] in 1972. left Couldnt speak beninese Went on Welfare Mother came from [place] 18 months later So she started working at [employer] in [place] for 4 years Then to [employer] for 20 years. Went on disability for back issues at age 64 yr. RESIDENCE Lives in her house at [address] [place] [address] for 26 years . Drives her car. Has profit sharing. On Social Security $1258 a month. Dips in her Profit sharing when she needs. Has some savings.Grandson gives her $400 a month. HOBBIES LOves nature Drives her car around. in 1969 Carlos A Dunlap left her in 1974 and moved back to [facility]. Has 2 daughters. 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 Has dtr Taina 17 yr and son Krzysztof 13 yr ([phone]). Visits her regularly. Second dtr Patria Peguerosoledad 47 yr to [facility]. He works at [employer] . She works for an [employer] in .have a son Jerrell 27 yr Psychology Clinician (living with pt) . Patricio 17 yr (6 ft tall) and Kezia 14 yr. Live in [place] ([phone]) Goes to eat with her every tuesday. She never remarried Her mother helped her raise her children. EDUCATION: Middle school in [place]. Worked in [employer]. WORK HISTORY: Came in [facility] in 1972. left Couldnt speak beninese Went on Welfare Mother came from [place] 18 months later So she started working at [employer] for 4 years Then to [employer] for 20 years. Went on disability for back issues at age 64 yr. RESIDENCE Lives in her house at [address] [place] [address] for 26 years . Drives her car. Has profit sharing. On Social Security $1258 a month. Dips in her Profit sharing when she needs. Has some savings.Grandson gives her $400 a month. HOBJANICE LOves nature Drives her car around. in 1969 Carlos A Dunlap left her in 1974 and moved back to [facility]. Has 2 daughters. 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 Has dtr Taina 17 yr and son Krzysztof 13 yr ([phone]). Visits her regularly. Second dtr Patria Peguerovianneywei 47 yr to [facility]. He works at [employer] . She works for an [employer] in .have a son Jerrell 27 yr Psychology Clinician (living with pt) . Patrciio 18 yr (6 ft tall) and Kezia 14 yr. Live in [place] ([phone]) Goes to eat with her every tuesday. She never remarried Her mother helped her raise her children. EDUCATION: Middle school in [place]. Worked in [employer]. WORK HISTORY: Came in [facility] in 1972. left Couldnt speak beninese Went on Welfare Mother came from [employer] 18 months later So she started working at [employer] for 4 years Then to [employer] for 20 years. Went on disability for back issues at age 64 yr. RESIDENCE Lives in her house at [address] [place] [address] for 26 years . Drives her car. Has profit sharing. On Social Security $1258 a month. Dips in her Profit sharing when she needs. Has some savings.Grandson gives her $400 a month. HOBJANICE LOves nature Drives her car around. in 1969 Carlos A Dunlap left her in 1974 and moved back to [facility]. Has 2 daughters. 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 Has dtr Taina 16 yr and son Krzysztof 12 yr ([phone]). Visits her vist regularly. Second dtr Patria Dorman 46 yr to [facility]. He works at [employer] . She works for an [employer] in [employer].have a son Jerrell 26 yr Psychology Clinician (living with pt) . Patricio 17 yr (6 ft tall) and Kezia 13 yr. Live in [place] ([phone]) Goes to eat with her every tuesday. She never remarried Her mother helped her raise her children. EDUCATION: Middle school in [facility]. Worked in [employer] WORK HISTORY: Came in [facility] in 1972. left Couldnt speak beninese Went on Welfare Mother came from [place] 18 months later So she started working at [employer] in [place] for 4 years Then to [employer] for 20 years. Went on disability for back issues at age 64 yr. RESIDENCE Lives in her house at [address] [place] [address] for 25 years . Drives her car. Has profit sharing. On Social Security $1258 a month. Dips in her Profit sharing when she needs. Has some savings.Grandson gives her $400 a month. in 1969 Carlos A Dunlap left her in 1974 and moved back to [facility]. Has 2 daughters. 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 Has dtr Taina 16 yr and son Krzysztof 12 yr ([phone]). Visits her vist regularly. Second dtr Patria Dorman 45 yr to [facility]. He works at [employer] . She works for an [employer] in .have a son Jerrell 26 yr Psychology Clinician (living with pt) . Patricio 16 yr (6 ft tall) and Kezia 13 yr. Live in [place] ([phone]) Goes to eat with her every tuesday. She never remarried Her mother helped her raise her children. EDUCATION: Middle school in [facility]. Worked in [employer]. WORK HISTORY: Came in [facility] in 1972. left Couldnt speak beninese Went on Welfare Mother came from [place] 18 months later So she started working at [employer] in [place] for 4 years Then to [employer] for 20 years. Went on disability for back issues at age 64 yr. RESIDENCE Lives in her house at [address] [place] [address] for 25 years . Drives her car. Has profit sharing. On Social Security $1258 a month. Dips in her Profit sharing when she needs. Has some savings.Herbert gives her $400 a month. in 1969 Carlos A Dunlap left her in 1974 and moved back to [facility]. Has 2 daughters. 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 Has dtr Taina 20 yr aand going to [facility] [employer] and son Krzysztof 15yr ([phone]). Visits her regularly. Second dtr Patria Dorman 50 yr to [employer]. He works at [employer] . She works for an [employer] in .have a son Jerrell 31yr Psychology Clinician (lived with pt for 4 yrs and moved out 2yrs ago to his own house in [place] Has a GF) . Patricio 21yr (6 ft tall and now living with patient) and Kezia 17 yr. Live in [place] ([phone]) Sold their big house and bought a small house. Goes to eat with her every tuesday. She never remarried Her mother helped her raise her children. EDUCATION: Middle school in [facility]. Worked in [employer]. WORK HISTORY: Came in [facility] in 1972. left Couldnt speak beninese Went on Welfare Mother came from [place] 18 months later So she started working at [employer] for 4 years Then to [employer] for 20 years. Went on disability for back issues at age 64 yr. RESIDENCE Lives in her house at [address] [place] [address] for 26 years . Drives her car. Has profit sharing. On Social Security $1258 a month. Dips in her Profit sharing when she needs. Has some savings.Grandjaziel Allan gives her $400 a month.Lived with her Now moved to his house in [place] in 2019 Has a GF Works for [employer] Another grandson Patricio now living with her Goes to [employer] Works at [employer] Gives her some money ! HOBBIES LOves nature Drives her car around. in 1969 Carlos A Dunlap left her in 1974 and moved back to [facility]. Has 2 daughters. 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 Has dtr Taina 20 yr aand going to [employer] and son Krzysztof 15yr ([phone]). Visits her regularly. Second dtr Elyrudy Lakia 50 yr to [employer]. He works at [employer] . She works for an [employer] in .have a son Jerrell 31yr Psychology Clinician (lived with pt for 4 yrs and moved out 2yrs ago to his own house in [place] Has a GF) . Patricio 21yr (6 ft tall and now living with patient) and Kezia 17 yr. Live in [place] ([phone]) Sold their big house and bought a small house. Goes to eat with her every tuesday. She never remarried Her mother helped her raise her children. EDUCATION: Middle school in [facility]. 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 WORK HISTORY: Came in [facility] in 1972. left Couldnt speak beninese Went on Welfare Mother came from [place] 18 months later So she started working at [employer] in [place] for 4 years Then to [employer] for 20 years. Went on disability for back issues at age 64 yr. RESIDENCE Lives in her house at [address] [place] [address] for 26 years . Drives her car. Has profit sharing. On Social Security $1258 a month. Dips in her Profit sharing when she needs. Has some savings.Grandjaziel Allan gives her $400 a month.Lived with her Now moved to his house in [place] in 2019 Has a GF Works for [employer] Another grandson Patricio now living with her Goes to [employer] [facility] [employer] Works at [employer] Gives her some money ! [employer]OBBIES LO[employer] nature Drives her car around. in 1969 Carlos A Dunlap left her in 1974 and moved back to [facility]. Has 2 daughters. 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 Has dtr Taina 20 yr aand going to [facility] [employer] and son Krzysztof 15yr ([phone]). Visits her regularly. Second dtr Patria Dorman 51 yr to [facility]. He works at [employer] . She works for an [employer] in .have a son Jerrell 31yr Psychology Clinician (lived with pt for 4 yrs and moved out 2yrs ago to his own house in [place] Has a GF) . Patricio 21yr (6 ft tall and now living with patient) and Kezia 17 yr. Live in [place] ([phone]) Sold their big house and bought a small house. Goes to eat with her every tuesday. She never remarried Her mother helped her raise her children. EDUCATION: Middle school in [facility]. Worked in [employer] grocery [employer] WORK HISTORY: Came in [facility] in 1972. left Couldnt speak beninese Went on Welfare Mother came from [place] 18 months later So she started working at [employer] for 4 years Then to [employer] for 20 years. Went on disability for back issues at age 64 yr. RESIDENCE Lives in her house at [address] [place] [address] for 26 years . Drives her car. Has profit sharing. On Social Security $1258 a month. Dips in her Profit sharing when she needs. Has some savings.Grandson Jerrell gives her $400 a month.Lived with her Now moved to his house in [place] in 2019 Has a GF Works for [employer] Another grandson Patricio now living with her Goes to [employer] [facility] [employer] Works at [employer] Gives her some money ! HOBBIES [employer] nature Drives her car around. in 1969 Carlos A Dunlap left her in 1974 and moved back to [facility]. Has 2 daughters. 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 Has dtr Taina 20 yr aand going to [facility] [employer] and son Krzysztof 15yr ([phone]). Visits her regularly. Second dtr Patria Dorman 50 yr to [employer]. He works at [employer] . She works for an [employer] in .have a son Jerrell 31yr Psychology Clinician (lived with pt for 4 yrs and moved out 2yrs ago to his own house in [place] Has a GF) . Patricio 21yr (6 ft tall and now living with patient) and Kezia 17 yr. Live in [place] ([phone]) Sold their big house and bought a small house. Goes to eat with her every tuesday. She never remarried Her mother helped her raise her children. EDUCATION: Middle school in [employer]. Worked in [employer]. WORK HISTORY: Came in [employer] in 1972. left Couldnt speak beninese Went on Welfare Mother came from [place] 18 months later So she started working at [employer] in [place] for 4 years Then to [employer] for 20 years. Went on disability for back issues at age 64 yr. RESIDENCE Lives in her house at [address] [place] [address] for 26 years . Drives her car. Has profit sharing. On Social Security $1258 a month. Dips in her Profit sharing when she needs. Has some savings.Grandson Jerrell gives her $400 a month.Lived with her Now moved to his house in [place] in 2020 Has a GF Works for [employer] Another grandson Patricio now living with her Goes to [employer] [employer] Works at [employer] Gives her some money ! [employer]OBBIES [employer] nature Drives her car around. 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 Sees Dr Mojica On warfarin since 2000 On beta sahara and dig. dig level 4 mo ago WNL has not been symptomatic. No evidence of CHF in hx or on exm. Problem 90628480 Acute recurrent maxillary sinusitis (J01.01) Active confirmed Problem 82170296 Glossitis (K14.0) Active confirmed Problem Gastro-esophage al reflux disease without esophagitis (291976857) Gastro-esophagea l reflux disease without esophagitis (K21.9) Active confirmed daily sx despit e avoiding food triggers. begin omeprazole. avoid citrus and tomatoes. follow up in 4 weeks. Problem 10856467 Other constipation (K59.09) Active confirmed Began with use of increased dose of amlodipine. Sx have not resolved with d/c of med. Oral fliuids 2 liters a day, dietary fiber- discussed fruits and veggies she can eat despite GERD and warfarin. may use MOM once a week if needed. reeval in 4 weeks. If not improved, may need GI referal for change in bowel habits. Problem 64564022 Age-related osteoporosis without current pathological fracture (M81.0) Active confirmed 04/08/21 discussed most recent bone density which showed osteoporosis. pt was started on alendronate in 2017 for osteopenia however did not tolerate it with her warfarin and caused palpitations and stopped it. using only vit d now. educated can start on calcium-vitamin d and repeat bone density if still no improvement can refer to instructional design specialist for this, agreeable to plan. will also strengthen exercises, walks over 2 miles a day Problem Disorder of bone (35625542) Disorder of bone, unspecified (M89.9) Active confirmed Problem Hematuria (38998503) Hematuria, unspecified (R31.9) Active confirmed Problem 526622507 Medicare annual wellness visit, subsequent (Z00.00) Active confirmed mammogram form given so she may call for appointment this month Problem Osteoporosis (44997240) Osteoporosis (M81.0) Active confirmed Problem Atrial fibrillation (16861008) Atrial fibrillation (I48.91) Active confirmed Problem 7261267442977 Tinnitus of both ears (H93.13) Active confirmed Will reer for hearing test 07/03/21 ongoing Problem Chronic kidney disease (760902050) CKD (chronic kidney disease) (N18.9) Active confirmed Problem Panic attack (022247125) Panic attack (F41.0) Active confirmed Will give alrazolam to take prn #12 Problem 08965012 Viral syndrome (B34.9) Active confirmed Reassured tOld to rest, drink carl tea and honey, use tylenol Problem 6487451 Arthritis (M19.90) Active confirmed Problem 698067953 Recurrent sinusitis (J32.9) Active confirmed Will give Amixillin and medrol Problem Adverse drug effect (26089714) Adverse drug effect (T88.7XXA) Active confirmed Gets constipate d with amlodipine Wants to switch back to LisinoprilHCTZ 03/10.5Took for 9 years Problem 344787832 Rash and nonspecific skin eruption (R21) Active confirmed Saw dermatolo gist Told it was from Toprol The rash is on her forearm Problem 743138587 Epigastric discomfort (R10.13) Active confirmed Wants to see a gastroeneterologi st Will refer to Dr Steiner Problem Long-term current use of anticoagulant (438618612) 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 06/30/21 Called to say Doxy didnt work Will prescribe Azithromycin 500 mg and Prednison 20 mg daily for 10 days 07/03/21 resolving, feeling much better. will finish medications. continues preventative measures. headaches gone, congestion much relieved Problem 03249498 Allergic sinusitis (J30.9) Active confirmed Had been suffering for years Finally got rid of her chihuaha dog 10 yrs old 8 months ago. Since then has no symptoms of her allergies. Problem Neck sprain (572157458) Neck sprain, initial encounter (S13.9XXA) Active confirmed 02/04/21 Will prescribe cyclobenzaprine 5 mg tid #30 and brand name celebrex Problem 373554027 S/P balloon mitral valvuloplasty (Z98.890) Active confirmed Done at [facility] [place] 2014 [place] Valera Problem 3949422 Flu syndrome (J11.1) Active confirmed Has symptoms almost gone Problem 115540896 Osteopenia of spine (M85.88) Active confirmed bone density 09/2016 spine -2.0 Problem Breathing-relat ed sleep disorder (disorder) (173978566) Sleep disorder breathing (G47.30) Active confirmed 01/13/23 Will refer for sleep study Problem 219126397 Ankle swelling, unspecified laterality (M25.473) Active confirmed Drom amlodipine Exacerbated in hot weather Will stop it today Problem 957833529 Digoxin poisoning of undetermined intent, initial encounter (T46.0X4A) Active confirmed Has nausea, and diziness Level 2.5 Told to stop for 2 days and take 5 weekdays and check level after 6 weeks Problem 211272758 Digoxin poisoning of undetermined intent, subsequent encounter (T46.0X4D) Active confirmed 05/04/23 Was in [facility] with nausea and right side chest [...] and check dig level after 10 days Problem Chronic atrial fibrillation (disorder) (723286037) Chronic atrial fibrillation, unspecified (I48.20) Active confirmed Problem COVID-19 (139310027) COVID-19 (U07.1) Active confirmed 10/14/21 recommende d monoclonal antibody infusion due to pt unvaccinated status for covid and cardiac comorbidities. pt refuses and does not feel comfortable with infusion or new medications that are not fully tested per pt. educated this is to prevent hospitalization and worsening. can do within 7 days of symptoms. educated if symptoms worsen between today and tomorrow to call will still be in window until tuesday. advised to get oxygen monitor and make sure it is above 90s, if below seek ED. continues to quarantine Problem 41903105 Elevated systolic blood pressure reading with diagnosis of hypertension (I10) Active confirmed 03/24/23 Very sensitive to meds Had seen bilingual manager Dr Mojica in past. Had FAISAL cough with Lisinopril Stopped and start again. Had AE with clonidine. Tried Hydralazine Ankle swelling and constipation with amlodipine She has stopped and restarted it many times Tried Carvedilol On Toprol XL 50 which she stopped and restarts. Wants to try ramiprilas her cousin like it. Will prescribe it Problem 28783504 Adverse effect of drug, sequela (T50.905S) Active confirmed Plan Of Treatment Pending Test Test Name Order Date Urinalysis, Complete 10/18/2017 Urinalysis, Complete 02/25/2020 Urinalysis, Complete 03/15/2022 Urinalysis, Complete 08/12/2022 Lipid Panel 08/12/2022 Lipid Panel 03/15/2022 Lipid Panel 02/25/2020 Basic Metabolic Panel (8) 12/16/2015 Chem-Comprehensive 03/15/2022 Chem-Comprehensive 08/12/2022 Bone Density 12/22/2022 BUN, Creatinine 05/04/2023 CBC 03/15/2016 CBC WITH AUTO DIFF 01/22/2019 CBC WITH AUTO DIFF 10/18/2017 CBC WITH AUTO DIFF 02/25/2020 COMPREHENSIVE METABOLIC PANEL 10/18/2017 COMPREHENSIVE METABOLIC PANEL 01/22/2019 COMPREHENSIVE METABOLIC PANEL 03/15/2016 COMPREHENSIVE METABOLIC PANEL 02/25/2020 DIGOXIN LEVEL 03/15/2016 DIGOXIN LEVEL 02/25/2020 DIGOXIN LEVEL 10/18/2017 DIGOXIN LEVEL 01/22/2019 LIPID PROFILE 03/15/2016 PT/INR 03/15/2016 PT/INR 04/21/2021 PT/INR 04/29/2020 Urinalysis, Complete 11/13/2015 Digoxin, Serum 02/20/2018 CBC 02/20/2018 Chem-Comprehensive 02/20/2018 Prothrombin Time with INR (PT/INR) 02/20 Insurance Providers Payer Name Payer Address Payer Phone Subscriber Number Group Number Insured Name Patient Relationship to Insured Coverage Start Date Coverage End Date [employer] Preferred [address] [place] [address] [id number] Giles Lynch Self - patient is the insured [place] of [place] s [address] [place] [address] [id number] FonGiles byrd Self - patient is the insured Medical (General) History Medical History History ICD Code , Adhesive Capsulitis Of Lucrecia ulder , Digitalis Effect , Endocarditis , History of acute sinusitis , History of allergy , History of constipation , History of shortness of breath , History of tinnitus , History of urinary tract infection , History of varicose veins , Omphalitis , Panic disorder without agoraphobia , Rash , Skin Induration , Visit for preventive health examination Age-related osteoporosis without current pathological fracture M81.0 Hypertension Chronic anticoagualtion On warfarin for chronic a.fib s/p Mitral valve ballon angioplast y 200 1 for stenoses Hx of rheumatic fever as a chikd with rh eumatic mitral stenoses Chronic Atrial fibrillation Last saw Dr Mojica bilingual manager 1. Had 2 week loop recorder and echo. Stable on Digoxin, metoprolol and warfarin Surgical History Surgery Date(Month/Year) Cholecystectomy Laparoscopic 2008 Mitral Valve Replacement 2000 Biopsy Breast Open 2014
--- OUTSIDE RECORDS SUMMARY | 2024-08-22 15:31 | XMS_ITS ---
Author Organization [facility] Address [address] [place] [address] Care Team Providers Care Driller And Reamer Name Role Phone PONCHO DONOHUE Primary Care [...] Active Encounters Encounter Location Date Provider Diagnosis [facility] [address] [place] [address] 05/10/2023 PONCHO DONOHUE Plan Of Treatment Medication Medication Name Sig Start Date Stop Date Notes Warfarin Sodium 5 MG TAKE 1/2 -1 TABLET ONCE DAILY DIRECTED Orally Once a day for 90 days amLODIPine Besylate 5 MG 1 tablet Orally Twice A Day for 90 days Progress Notes * Giles LYNCHDOB:[birth year] (77 yo F)Acc No.[id number]:05/10/2023 Patient:?Giles Lynch :1945???Age:77 Y???Sex:Female Address:[address] [place] [address], [address] * Refills? Refill Warfarin Sodium Tablet, 5 MG, Orally, 90, TAKE 1/2 -1 TABLET ONCE DAILY DIRECTED, Once a day, 90 days, Refills=3 Refill amLODIPine Besylate Tablet, 5 MG, Orally, 180 Tablet, 1 tablet, Twice A Day, 90 days, Refills=3 * true * Date:? Generated for Gabriel yu/Helen/Jacintaitting on:?08/22/2024 03:31 PM EDT
--- OUTSIDE RECORDS SUMMARY | 2024-08-22 15:32 | XMS_ITS | Continuity of Care Document ---
Author Organization [facility] Address [address] [place] [address]- Care Team Providers Care Data Governance Consultant Name Role Phone Aamir Cunningham Primary Care Physician [phone] [id number] Date(s): 07/31/24 - 08/07/24 [facility] [address] [place] [address]- Encounter Diagnosis Essential hypertension(Discharge Diagnosis) - 07/31/24 Paroxysmal A-fib(Discharge Diagnosis) - 07/31/24 Splenic lesion(Discharge Diagnosis) - 07/31/24 Mixed hyperlipidemia(Discharge Diagnosis) - 07/31/24 Vitamin D deficiency(Discharge Diagnosis) - 07/31/24 Secondary hypercoagulable state(Discharge Diagnosis) - 07/31/24 Attending Physician: Aamir Cunningham Encounter Type: Office Visit Allergies, Adverse Reactions, Alerts Substance Criticality Severity Reaction Reaction Severity Status Protonix Active AmLODIPine Besylate Constipa tion Edema Active Immunizations Given and Recorded Vaccine Date Status Refusal Reason tetanus/diphtheria/pertussis, acel(Tdap) 02/13/19 Recorded pneumococcal 23-valent vaccine 09/13/16 Recorded tetanus-diphtheria toxoids (Td) 02/03/07 Recorded Medications hydrochlorothiazide-lisinopril 12.5 mg-10 mg oral tablet 1 tablet, By Mouth, Daily, # 90 tablet, 3 Refills, Maintenance, 07/31/24 10:54:00 AM EST, Tablet, [id number], Partial fill upon patient request if the prescription is for a schedule II opioid drug., 1 tablet By Mouth Daily, 157.4, cm, 07/31/24 10:39:00 EST, Height Start Date: 07/31/24 Status: Ordered Quantity: 90.0 Unit: tablet Repeat number: 4 Indication: Essential (primary) hypertension Toprol XL 50 mg oral tablet, extended release 50 mg, 1, tablet, By Mouth, Daily, # 90 tablet, Refills 0, Maintenance, 07/31/24 10:36:00 AM EST, Partial fill upon patient request if the prescription is for a schedule II opioid drug. Start Date: 07/31/24 Status: Ordered Quantity: 90.0 Unit: tablet Repeat number: 1 warfarin 2.5 mg oral tablet 1 tablet = 2.5 mg, By Mouth, Daily, # 30 tablet, 0 Refills, Maintenance, 07/31/24 10:38:00 AM EST, Tablet, Partial fill upon patient request if the prescription is for a schedule II opioid drug. 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 An increase of 2.0%. Bone mineral density in the right femur and an increase of 0.9% bone mineral density in the left femur. Diagnosis Diagnosis Type Effective Dates Health Status Clinical Service Informant Essential hypertension Discharge Diagnosis 07/31/24 Paroxysmal A-fib Discharge Diagnosis 07/31/24 Splenic lesion Discharge Diagnosis 07/31/24 Mixed hyperlipidemia Discharge Diagnosis 07/31/24 Vitamin D deficiency Discharge Diagnosis 07/31/24 Secondary hypercoagulable state Discharge Diagnosis 07/31/24 Procedures Procedure Date Related Diagnosis Body Site Status Catheter ablation for cardiac arrhythmia Completed Cholecystectomy Completed MVP - Mitral valvoplasty Completed Vital Signs Most recent to oldest [Reference Range]: 1 2 Height 157.40 cm (07/31/24 10:39 AM) 157.40 cm (07/31/24 10:20 AM) Weight 58.9 kg (07/31/24 10:20 AM) Oxygen Saturation [94-100 %] 100 % (07/31/24 10:20 AM) Pulse Rate [55-90 bpm] 73 bpm (07/31/24 10:20 AM) Body Mass Index [18.5-24.99 kg/m2] 23.77 kg/m2 (07/31/24 10:20 AM) Blood Pressure [90-138/55-84 mm Hg] 148/ 70mm Hg *H* (07/31/24 10:39 AM) 147/66mm Hg *H* (07/31/24 10:20 AM) Blood pressure sites Arm, left (07/31/24 10:39 AM) Arm, right (07/31/24 10:20 AM) Social History Social History Type Response Smoking Status Never (less than 100 in lifetime) entered on: 07/31/24 Sex Sex Representation Female (finding) Note * Flor Fairbanks [place]: PERFORM Event Display: Patient Education/Instruction Authored Date: [id number] Ambulatory Adult Visit Summary [facility] [address] [place] [address] Name: JONAS FAYE : 1945?? Visit: 07/31/2024 10:15?? Ambulatory Visit Instructions ?? Your Care Team Primary Care Provider Aamir Cunningham? This Visit Provider Aamir Cunningham Nils Your Diagnosis Essential hypertension Paroxysmal A-fib Splenic lesion Mixed hyperlipidemia Vitals Signs Pulse Rate: 73 bpm Height: 157.4 cm Systolic Blood Pressure:??148 mm Hg??High Weight: 58.9 kg Diastolic Blood Pressure: 70 mm Hg Body Mass Index: 23.77 kg/m2 Oxygen Saturation: 100 % Body surface area: 1.6 What to do next Scheduled Follow-Up Appointments Tuesday 11:00 AM EDT ?? Where: [facility] [address] [place] [address]- Status: Pending Follow-Up Appointments Follow Up with??Aamir Cunningham When:??12/03/2024 03:50 PM EDT Why: 4 mo follow up Where: [address] [place] [address]- Follow up Appointment - Ordered?-- 2 weeks, 07/31/24 11:01:00 EST Follow up Appointment - Ordered?-- 4 months, 07/31/24 11:01:00 EST Medications The list below reflects the information in our records and provided by you today along with any changes made during this visit. Please continue your medications until treatment is completed or stopped by your provider. If this is different from the information you have or there are other questions,please contact the prescribing provider. What How Much When Why Instructions New Hydrochlorothiazide-Lisinopril (hydrochlorothiazide-lisinopril 12.5 mg-10 mg oral tablet) 1 tab(s) Oral Daily Essential hypertension Refills: 3 Pickup at [id number] Unchanged Metoprolol (Toprol XL 50 mg oral tablet, extended release) 1 tab(s) Oral Daily Unchanged Warfarin (warfarin 2.5 mg oral tablet) 1 tab(s) Oral Daily Pharmacy Information [id number]: [address] [place] [address] [phone] ?? What How Much When Comments Stop Taking Amlodipine (amLODIPine 5 mg oral tablet) 1 tab(s) Oral Daily Medications and Immunizations Administered Medications Given During Visit No medications given during this visit.?? Allergies (NKA means No Known Allergies) NKA Common Emergency Awareness Tips IS IT A STROKE? Act FAST and Check for these signs: FACE Does the face look uneven? ARM Does one arm drift down? SPEECH Does their speech sound strange? TIME Call at any sign of stroke ?? Heart Attack Signs Chest discomfort: Most heart attacks involve discomfort in the center of the chest and lasts more than a few minutes, or goes away and comes back. It can feel like uncomfortable pressure, squeezing, fullness or pain. Discomfort in upper body: Symptoms can include pain or discomfort in one or both arms, back, neck, jaw or stomach. Shortness of breath: With or without discomfort. Other signs: Breaking out in a cold sweat, nausea, or lightheaded. Remember, MINUTES DO MATTER. If you experience any of these heart attack warning signs, call to get immediate medical attention! ?? Smoking can increase your chances of developing chronic health problems and can cause harmful effects to other family members in your house. If you smoke, you are strongly encouraged to quit. Please call [employer] at [phone] or [phone] Threat ([phone]) or log in to [email or web address] for referrals to smoking cessation programs. ?? The National Suicide Prevention Hotline is available 20/12 if you or someone you know needs to find a reason to keep living. By calling 6-305-957-pyco (6098) you'll be connected to a skilled, trained counselor at a crisis center in your area. [facility] [employer] Portal You can view and manage your care through the patient portal or by using a health care luis of your choosing. [employer] is a website that allows you to securely view your medical information including your hospital discharge summary, office visit summaries, medications and follow-up visits. You can also request appointments, renew medications, and request access to your medical information using a health care luis of your choosing, or just ask a question. You can enroll at [email or web address] or register during your next office visit. [facility], in keeping with [facility] guidance, no longer requires face masks for staff, patientsor visitors in most situations. Similiar to time spent indoors at other locations, there is the chance that you were exposed to repiratory viruses during your time with us (such as flu or COVID-19). If you develop symptoms concerning for a viral respiratory infection, please seek testing (and treatment if indicated) from your medical provider or home test kit. ?? Disclaimer: The information provided is of a general nature and is intended to be used in conjunction with the recommendations and advice of your health care practitioner. Every effort has been made to ensure that the information provided is accurate and complete at the time it is provided to you however, as your needs change, or, as new information becomes available, different or additional instructions may be required. ?? If you have questions, please consult with your primary care provider or pharmacist, as appropriate. This information is not intended to serve as substitution for assessment and evaluation by a qualified health care provider. If you do not have a primary care provider, you may find a [facility] [employer] provider by calling [employer] [facility] at [phone]. Patient Care team information Care Team Personnel Name: Aamir Cunningham Position: [facility] PCO Associate Professional Member Role: PCP Address: [address] [place] [address]- Telecom: Care Team Related Persons Name: TERESA MALDONADO Insurance Providers Guarantor name: JONAS FAYE [employer] Plan Information #: 1 Payer: MEDICARE PART B OUTPT Member Number: [id number] Policy Number: NA Group Number: NA Health Plan Information #: 2 Payer: [employer] Member Number: [id number] Policy Number: NA Group Number: [id number] Health Plan Information #: 3 Payer: [facility] Member Number: [id number] Policy Number: NA Group Number: NA
--- OUTSIDE RECORDS SUMMARY | 2024-08-22 15:32 | XMS_ITS | Clinical Summary ---
Author Organization [address] Address [address] [place] [phone] Phone Care Team Providers Care Fluoroscope Operator Name Role Phone Laura Mensah MD Primary Care Provider Allergies Active Allergy Reactions Criticality Noted Date Comments Amlodipine Besylate 08/18/2022 Pantoprazole 06/10/2006 Medications bisacodyL (DULCOLAX) 5 mg EC tablet Take 2 tabs by mouth right before beginning bowel prep. Follow instructions given by office for timing. 4 Active docusate sodium (COLACE) 100 mg capsule Take 1 capsule (100 mg total) by mouth. 4 Active cholecalciferol , vitamin D3, 350 mcg (14,000 unit) wafer Take by mouth. Act gumaro lisinopriL (PRINIVIL,ZESTR IL) 10 mg tablet Take 1 tablet (10 mg total) by mouth 1 (one) time each day. 90 each 5 09/06/19 25 Active warfarin (COUMADIN) 2.5 mg tablet Take 1 tablet (2.5 mg total) by mouth 1 (one) time each day with dinner. 90 tablet 1 5 Active metoprolol succinate (TOPROL-XL) 50 mg 24 hr tablet Take 1 tablet (50 mg total) by mouth 1 (one) time each day. 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 08/08/2023 Sleep disorder 08/08/2023 Vitamin D deficiency 08/08/2023 Encounters Date Type Department Care Team Description 07/03/2024 Telephone Adult [address] [phone] Laura Mensah MD Medication Problem (Lisinopril) 06/07/2024 10:30 AM EST Office Visit Adult [address] [phone] Laura Mensah MD Primary hypertension (Primary Dx); [...] Care Team (Late st Contact Info) Description 08/29/2024 8:45 AM EDT Appointment Radiology Department - [address] [phone] 09/05/2024 2:30 PM EDT Office Visit Adult Medicine [facility] [address] [facility] [place] [phone] Laura Mensah MD [address] [facility] [place] Health Maintenance Due Date Last Done Comments [...] Procedure Name Priority Date/Time Associated Diagnosis Comments [facility] DEXA AXIAL SKELETON Routine 03/31/2021 11:16 AM EDT Encounter for screening for osteoporosis from Last 3 Months or Most Recently Relevant to Health Maintenance Results * [facility] DEXA AXIAL SKELETON (03/31/2021 11:16 AM EDT) Anatomical Region Laterality Modality Mammography 03/31/2021 10:4 0 AM EDT Narrative 03/31/2021 11:[address] [facility] Diagnostic Imaging Department [address] [place] [address] Patient: ??JNOAS YLNCH ?/Age/Sex: 1945 - 75 - F Unit#: ??[id number] ? Location/Status: ??SPDIMAM/REG CLI ? Mnemonic[facility]ing [facility] Ordering Physician: ??MANI DONOHUE MD [facility] Dexa Axial Skeleton - 03/31/211105 HISTORY: ??The [...] probability of hip fracture of 3.5%. Code 09692 Dictating Physician: ??MARCELA EVANS MD Electronically Signed by: ??MARCELA EVANS MD Dic Date/Time: ??03/31/21 1115 Sign date/Time: ??03/31/21 1116 Procedure Note Marcela Evans MD - 05/19/2022 [facility] Diagnostic Imaging Department [address] [place] [address] Patient: JONAS LYNCH D.O.B./Age/Sex: 1945 75 - F Unit#: [id number] Location/Status: SPDIMA/REG CLI [facility] Ordering Physician: MANI DONOHUE MD [place] Dexa [...] density of the femurs bilaterally is 0.748 gm/[id number] is 74% of that of young normals [...] probability of hip fracture of 3.5%. Code 00638 Dictating Physician: MARCELA EVANS MD Electronically Signed by: MARCELA EVANS MD Dic Date/Time: 03/31/21 1115 Sign date/Time: 03/31/21 1116 Mani Donohue MD IM BI PROCEDURES Final Result from Last 3 Months or Most Recently Relevant to Health Maintenance Insurance [place] [employer] Care Teams Fluoroscope Operator Relationship Specialty Start Date End Date Laura Mensah MD [address] [place] [address] PCP - General 08/03/23
--- OUTSIDE RECORDS SUMMARY | 2024-08-22 15:32 | XMS_ITS | Encounter Summary ---
Author Organization [facility] Address [address] [place] [phone] Care Team Providers Care Correctional Program Specialist Name Role Phone Laura Mensah MD Primary Care Provider Reason for Visit * Reason Onset Date Comments Medication Problem 07/03/2024 Lisinopril Encounter Details Date Type Department Care Team (Late st Contact Info) Description 07/03/2024 Telephone Adult Medicine [facility] [address] [place] [address] Laura Mensah MD [address] [place] [address] Medication Problem (Lisinopril) Social History Tobacco Use Types Packs/Day Years Used Date Smoking Tobacco: Never Assessed Comments Unknown Sex and Gender Information Value Date Recorded Sex Assigned at Not on file Legal Sex Female 5:12 PM EST Gender Identity Not on file Sexual Orientation Not on file documented as of this encounter Progress Notes * Laura Mensah MD - 07/31/2024 4:36 PM EST Will discuss with patient at appointment tomorrow * Meseret Chin MA - 07/06/2024 11:09 [...] 8:45 AM EDT Appointment Radiology Department - [address] [phone] 09/05/2024 2:30 PM EDT Office Visit Adult Medicine [place] - [address] [phone] Laura Mensah MD [address] [place], [place] documented as of this encounter Visit Diagnoses Not on filedocumented in this encounter Care Teams Correctional Program Specialist Relationship Specialty Start Date End Date Laura Mensah MD [address] [place], [place] PCP - General 08/03/23 documented as of this encounter
--- OUTSIDE RECORDS SUMMARY | 2024-08-22 15:32 | XMS_ITS ---
Author Organization [facility] Address [address] [facility] [address] [place] [address] Care Team Providers Care Dish Machine Operator Name Role Phone PONCHO DONOHUE Primary Care Provider [phone] Results Component Value Reference Range Notes DIGOXIN LEVEL Reviewed date:05/10/2023 06:03:27 PM Interpretation: Performing Lab: Notes/Report: Original Ordering Provider: PONCHO DONOHUE MD [employer] [address] Humanities Instructor - Candice Alfodr MD DIGOXIN LEVEL 0.3 0.5-2.0 ng/ml REASON FOR VISIT Critical Dig Level Encounters Encounter Location Date Provider Diagnosis [facility] [address] [facility] [address] [place] [address] 05/05/2023 PONCHO DONOHUE Digoxin poisoning of undetermined intent, initial encounter T46.0X4A Assessments Encounter Date Diagnosis (ICD Code) Assessment Notes Treatment Notes Treatment Clinical Notes Section Notes 05/05/2023 Digoxin poisoning of undetermined intent, initial encounter (ICD-10 - T46.0X4A) Plan Of Treatment No Information Progress Notes * Giles LYNCHDOB:[birth year] (77 yo F)Acc No.[id number]:05/05/2023 Patient:?Alina Lynchjessy :1945???Age:77 Y???Sex:Female Address:[address] [place] [address], [address] Subjective: * Chief Complaints: * ???Critical Dig Level * Medical History:? * Surgical History:? * Hospitalization/Major Diagno stic Procedure:? * Medications:? Objective: Assessment: * Assessment: 1.?Digoxin poisoning of unde termined intent, initial encounter - T46.0X4A? Plan: * Treatment: * Procedure Codes:? * true * Date:? Generated for Gabriel yu/Helen/Davinasmitting on:?08/22/2024 03:31 PM EDT
--- OUTSIDE RECORDS SUMMARY | 2024-08-22 15:32 | XMS_ITS | Clinical Summary ---
Author Organization [facility] Address [address] [facility] [address] [place] [address] Phone Care Team Providers Care Reel Cutter Name Role Phone Ashok Pulido MD Primary Care Provider Allergies No known active allergies Medications metoprolol [...] Office Visit [facility] [address] [phone] Jay De Leon MD [address] [phone] Health Maintenance Due Date Last Done Comments Pneumococcal Vaccine: 65+ Ye ars (1 of 2 - PCV) 1951 Influenza Vaccine (#1) 2024 Hepatitis B Vaccine Aged Out No longe r eligible based on patient's age to complete this topic Insurance [place] Care Teams Reel Cutter Relationship Specialty Start Date End Date Ashok Pulido MD [address] [address] PCP - General Internal Medicine 10/21/23
[2024-08-22 15:50] LABS: Prothrombin Time Whole Bld POC 23.8 sec (11.1-13.5)
== END 2024-08-22 13:43 | disposition home or self-care (01) ==
LOC: HO.ACS 13:05
PROVIDERS: PCP Student in an Organized Health Care Education/Training Program; Visit Provider Internal Medicine Medical Oncology
DX: Z79.01 Long term (current) use of anticoagulants (principal)

== ENCOUNTER → 2024-08-22 13:05 | Outpatient (BNVA) | payer OTHER, SELFPAY | PROVIDERS: PCP Student in an Organized Health Care Education/Training Program; Visit Provider Internal Medicine Medical Oncology | DX: I48.20 Chronic atrial fibrillation, unspecified (principal); Z51.81 Encounter for therapeutic drug level monitoring; Z79.01 Long term (current) use of anticoagulants | CPT/HCPCS: 85610; 99211 ==

== ENCOUNTER 2024-09-04 13:02 | Outpatient (AMB) | payer OTHER, SELFPAY ==
[2024-09-04 13:08] LABS: Prothrombin Time Whole Bld POC 23.5 sec (11.1-13.5)
--- NOTE | 2024-09-04 13:15 | MHC.OFFVISCO ---
Intake Intake Visit Reasons: Anticoagulation Allergies pantoprazole [From Protonix] Allergy (Severe, Verified 09/04/24 13:03) Palpitations Medication List - Last Reconciled 09/04/24 by Archana Marvin RN cholecalciferol (vitamin D3) 25 mcg PO DAILY docusate sodium 100 mg PO BID PRN lisinopril-hydrochlorothiazide 10-12.5 mg 1 tab PO DAILY metoprolol succinate ER (Toprol XL) 75 mg PO DAILY warfarin See Protocol 5 mg orally 2.5mg x 5 days / week; Nursing Note INR: 2.0 in therapeutic range Medications and supplements reviewed traveled to [place] and developed URI - sinus infection was on amoxicillin (only took 1 tab daily x 10 days) still not better now on doxycycline 100mg po bid x 10days Denies any signs and symptoms of bleeding or bruising or clotting. Bleeding, bruising, clotting discussed Nutritional guidance given- increase greens next week due to antbx Dose: pt wants tp keep the dose the same for now 2.5 mg x 5 days/ week concerned INR could drop to low- she was enc to increase greens next week. F/U INR: 10 days due to antbx Patient verbalizes understanding of instructions given with read back Anti-Coag Initial Assessment Social Hx Patient Tobacco Use Status: Never used Tobacco alcohol intake: never Cardiovascular Hx: HTN, Arrhythmias, Rheumatic Fever, Varicose Veins and Other Lung Disease HX: DVT/PE Musculoskeletal Hx: Other GI Hx: Hemorrhoids and Other Cancer HX: No Psych. Illness/Depression: Yes (pt states no - md hx states yes ) Coding Level of Care Code Est Patient Level 1 Diagnoses Current use of anticoagulant therapy Z79.01 Results AMB INR Fingerstick AMB INR Fingerstick 2.0 Last Edit by Archana Marvin RN on 09/04/24 13:20 delayed interfacing Assessment & Plan Assessment & Plan (1) Current use of anticoagulant therapy: Code(s): Z79.01 - electrician helper (current) use of anticoagulants Category: Medical
--- OUTSIDE RECORDS SUMMARY | 2024-09-04 15:50 | XMS_ITS | Clinical Summary ---
Author Organization [facility] Address [address] [facility] [address] [place] [address] Phone Care Team Providers Care Fruit Thinner Name Role Phone Ashok Pulido MD Primary Care Provider [phone] Allergies No known active allergies Medications metoprolol [...] Office Visit [facility] [address] [phone] Jay De Leon MD [address] [phone] Health Maintenance Due Date Last Done Comments Pneumococcal Vaccine: 65+ Ye ars (1 of 2 - PCV) 1951 Influenza Vaccine (Season Ended) 2025 Hepatitis B Vaccine Aged Out No longe r eligible based on patient's age to complete this topic Insurance [place] Care Teams Fruit Thinner Relationship Specialty Start Date End Date Ashok Pulido MD [address] [address] PCP - General Internal Medicine 10/21/23
--- OUTSIDE RECORDS SUMMARY | 2024-09-04 15:50 | XMS_ITS | Encounter Summary ---
Author Organization [facility] Address [address] [place] [address] Care Team Providers Care Spring Coiling Machine Setter Name Role Phone Laura Mensah MD Primary Care Provider [phone] Reason for Visit * Reason Onset Date Comments Results 08/30/2024 Encounter Details Date Type Department Care Team (Late Contact Info) Description 08/30/2024 Telephone Adult [address] [phone] Argelia Newby [place] Results Social History Tobacco Use Types Packs/Day Years Used Date Smoking Tobacco: Never Assessed Comments Unknown Sex and Gender Information Value Date Recorded Sex Assigned at Not on file Legal Sex Female 5:12 PM EST Gender Identity Not on file Sexual Orientation Not on file documented as of this encounter Progress Notes * Argelia Newby MA - 08/30/2024 5:25 PM EDT Images from the original note were not included. LVM stating a detailed message will be sent via icomasoft. documented in this encounter Plan of Treatment Upcoming Encounters Date Type Department Care Team (Late Contact Info) Description 09/05/2024 2:30 PM EDT Office Visit Adult [address] [phone] Laura Mensah MD [address] [place] [address] documented as of this encounter Visit Diagnoses Not on filedocumented in this encounter Care Teams Spring Coiling Machine Setter Relationship Specialty Start Date End Date Laura Mensah MD [address] [place] [address] PCP - General 08/03/23 documented as of this encounter
--- OUTSIDE RECORDS SUMMARY | 2024-09-04 15:50 | XMS_ITS | Continuity of Care Document ---
Author Organization [facility] Adult Address [address] [place] [address]- Care Team Providers Care Real Estate Listing Consultant Name Role Phone Aamir Cunningham Primary Care Physician [phone] Encounter [facility] Date(s): 08/22/24 - 08/29/24 [facility] Adult [address] [place] [address]- Attending Physician: Not on Staff, Attending MD Encounter Type: Office Visit Allergies, Adverse Reactions, [...] Refills, Maintenance, 07/31/24 10:54:00 AM EST, Tablet, [facility]/pharmacy #[id number], Partial fill upon patient request if the [...] bone mineral density in the left femur. Social History Social History Type Response Smoking Status Never (less than 100 in lifetime) entered on: 07/31/24 Sex Sex Representation Female (finding) Patient Care team information Care Team Personnel Name: Aamir Cunningham Position: S PCO Associate Professional Member Role: PCP Address: [address] [place] [address] Telecom: Care Team Related Persons Name: TERESA MALDONADO Insurance Providers Guarantor name: JONAS ANTANYA Health Plan Information #: 2 Payer: MEDICARE PART B OUTPT Member Number: [id number] Policy Number: NA Group Number: NA Health Plan Information #: 1 Payer: [employer] Member Number: [id number] Policy Number: NA Group Number: [id number] Health Plan Information #: 3 Payer: [facility] Member Number: [id number] Policy Number: NA Group Number: NA
--- OUTSIDE RECORDS SUMMARY | 2024-09-04 15:50 | XMS_ITS | Encounter Summary ---
Author Organization [facility] Address [address] [place] [address] Care Team Providers Care Data Management Associate Name Role Phone Laura Mensah MD Primary Care Provider [phone] Reason for Visit * Imaging (Routine) - Pending Review Specialty Diagnoses / Procedures Referred By Pedro t Referred To Contact Radiology Diagnoses Hemangioma of spleen Procedures US Abdomen Limited US Abdomen Limited Laura Mensah MD [address] [place] [address] Phone: tel: fax: [facility] Referral ID Status Reason Start Date Expiration Date V isits Requested Visits Authorized [id number] Pending Review 04/12/2024 04/12/2025 1 1 Encounter Details Date Type Department Care Team (Latest Contact Info) Description 08/29/2024 8:23 AM EDT - 08/29/2024 11:59 PM EDT Hospital Encounter Radiology Department - [address] [phone] Hemangioma of liver; Hemangioma of spleen Discharge Disposition: Home or Self Care Social History Tobacco Use Types Packs/Day Years Used Date Smoking Tobacco: Never Assessed Comments Unknown Sex and Gender Information Value Date Recorded Sex Assigned at Not on file Legal Sex Female 5:12 PM EST Gender Identity Not on file Sexual Orientation Not on file documented as of this encounter Medications at Time of Discharge bisacodyL (DULCOLAX) 5 mg EC tablet Take 2 tabs by mouth right before beginning bowel prep. Follow instructions given by office for timing. 06/07/2023 cholecalciferol, vitamin D3, 350 mcg (14,000 unit) wafer Take by mouth. docusate sodium (COLACE) 100 mg capsule Take 1 capsule (100 mg total) by mouth. 02/29/2024 lisinopriL (PRINIVIL,ZESTRI L) 10 mg tablet Take 1 tablet (10 mg total) by mouth 1 (one) time each day. 90 each 06/07/2024 metoprolol succinate (TOPROL-XL) 50 mg 24 hr tablet Take 1 tablet (50 mg total) by mouth 1 (one) time each day. 90 tablet 1 07/26/2024 warfarin (COUMADIN) 2.5 mg tablet Take 1 tablet (2.5 mg total) by mouth 1 (one) time each day with dinner. 90 tablet 1 07/26/2024 documented as of this encounter Discharge Disposition Disposition Code Departure Means Destination Home or Self Care documented in this encounter Plan of Treatment Upcoming Encounters Date Type Department Care Team (Late st Contact Info) Description 09/05/2024 2:30 PM EDT Office Visit Adult Medicine [facility] [address] [place] [address] Laura Mensah MD [address] [place] [address] documented as of this encounter Procedures Procedure Name Priority Date/Time Associated Diagnosis Comments US ABDOMEN LIMITED Routine 08/29/2024 8: 47 AM EDT Hemangioma of spleen documented in this encounter Results * US Abdomen Limited (08/29/2024 8:47 AM EDT) Anatomical Region Laterality Modality Body Ultrasound 08/29/2024 1:59 PM EDT Impressions 08/29/2024 2:06 PM EDT Impression: Overall stable echogenic lesion within the spleen which most likely represents hemangioma. ??Ultrasound in 6 months to ensure continued stability -------- FINAL REPORT -------- Dictated By: Alana Perez Dictated Date: 08/29/2024 13:59 ET Assigned Physician: Alana Perez Reviewed and Electronically Signed By: Alana Perez Signed Date: 08/29/2024 14:06 ET Workstation ID: [id number] Transcribed By: Self Edit Transcribed Date: 08/29/2024 13:59 ET Narrative 08/29/2024 2:06 PM EDT EXAMINATION: US ABDOMEN LIMITED 08/29/2024 8:34 AM Patient : 1945 CLINICAL DATA/INDICATIONS: 2.8 cm hyperechoic splenic lesion which probably represents a hemangioma. Recommend follow-up ??ultrasound in 6 months. COMPARISON: Ultrasound abdomen from 03/14/2024 TECHNIQUE: Multiple richards scale images of the left upper quadrant were obtained with limited color Doppler flow FINDINGS: The spleen measures 11.0 x 4.0 x 4.9 cm. ??There is an echogenic ovoid lesion measuring 2.2 x 2.9 x 2.3 cm previously measuring 2.5 x 2.8 x 2.6 cm. The left kidney measures 10.3 cm and is sonographically unremarkable. Procedure Note Alana Perez MD - 08/29/2024 EXAMINATION: US ABDOMEN LIMITED 08/29/2024 8:34 AM Patient : 1945 CLINICAL DATA/INDICATIONS: 2.8 cm hyperechoic splenic lesion whichprobably represents a hemangioma. Recommend follow-up ultrasound in 6months. COMPARISON: Ultrasound abdomen from 03/14/2024 TECHNIQUE: Multiple richards scale images of the left upper quadrant wereobtained with limited color Doppler flow FINDINGS: The spleen measures 11.0 x 4.0 x 4.9 cm. There is an echogenic ovoidlesion measuring 2.2 x 2.9 x 2.3 cm previously measuring 2.5 x 2.8 x 2.6cm. The left kidney measures 10.3 cm and is sonographically unremarkable. IMPRESSION: Impression: Overall stable echogenic lesion within the spleen which most likelyrepresents hemangioma. Ultrasound in 6 months to ensure continuedstability -------- FINAL REPORT -------- Dictated By: Alana Perez Dictated Date: 08/29/2024 13:59 ET Assigned Physician: Alana Perez Reviewed and Electronically Signed By: Alana Perez Signed Date: 08/29/2024 14:06 ET Workstation ID: [id number] Transcribed By: Self Edit Transcribed Date: 08/29/2024 13:59 ET us Laura Mensah MD IMG US PROCEDURES Final Res ult documented in this encounter Visit Diagnoses Diagnosis Hemangioma of liver Hemangioma of other sites Hemangioma of spleen Hemangioma of other sites documented in this encounter Care Teams Data Management Associate Relationship Specialty Start Date End Date Laura Mensah MD [address] [place] [address] PCP - General 08/03/23 documented as of this encounter
--- OUTSIDE RECORDS SUMMARY | 2024-09-04 15:50 | XMS_ITS | Clinical Summary ---
Author Organization [facility] [address] [place] [address] [place] [phone] Phone Care Team Providers Care Survey Data Technician Name Role Phone Laura Mensah MD Primary [...] Encounters Date Type Department Care Team Description 08/30/2024 Telephone Adult [address] [phone] Argelia Newby [place] Results 08/29/2024 8:23 AM EDT - 08/29/2024 11:59 PM EDT Hospital Encounter Radiology Department - [address] [phone] Hemangioma of liver; Hemangioma of spleen Discharge Disposition: Home or Self Care 07/03/[address] [phone] Laura Mensah MD Medication Problem (Lisinopril) 06/07/2024 10:30 AM EST Office Visit Adult [address] [phone] Laura Mensah MD Primary hypertension (Primary Dx); [...] Adult Medicine [facility] [address] [place] [address] Laura Mensah MD [address] [place] [address] Health Maintenance Due Date Last Done Comments COVID-19 Vaccine (#1) 12/19/1950 Hepatitis A Vaccines (1 of 2 - Risk 2-dose series) 1965 Zoster Vaccines (1 of 2) 1996 Hepatitis B Vaccines (1 of 3 - Risk 3-dose series) 2006 Pneumococcal Vaccine: 50+ Years (2 of 2 - PCV) 09/13/2017 09/13/2016 RSV Immunization Adult Patients (1 - 1-dose 75+ series) 2021 Depression Screening 04/28/2022 Falls Risk Assessment 04/28/2022 Hepatitis C Screening 04/28/2022 Medicare Annual Wellness Visit 04/28/2022 Social Influencers of Health Screening 04/28/2022 Influenza Vaccine (Season Ended) 2025 Hypertension/CHF/CAD Annual BMP Blood Test 02/28/2025 02/29/2024 DTaP,Tdap,and Td Vaccines (3 - Td or Tdap) 02/13/2029 02/13/2019, 02/03/2007 Cholesterol Screening (Lipid Panel) 02/28/2029 02/29/2024 Osteoporosis [...] age to complete this topic Meningococcal B Vaccine Aged Out No l onger eligible based on patient's age to complete [...] 8: 47 AM EDT Hemangioma of spleen [place] DEXA AXIAL SKELETON Routine 03/31/2021 11:16 AM EDT Encounter for screening for osteoporosis from Last 3 Months or Most Recently Relevant to Health Maintenance Results * US Abdomen Limited (08/29/2024 8:47 [...] Signed Date: 08/29/2024 14:06 ET Workstation ID: [id number] Transcribed By: Self Edit Transcribed Date: 08/29/2024 [...] Signed Date: 08/29/2024 14:06 ET Workstation ID: [id number] Transcribed By: Self Edit Transcribed Date: 08/29/2024 13:59 ET us Laura Mensah MD IMG US PROCEDURES Final Res ult * QUINTON DEXA AXIAL SKELETON (03/31/2021 11:16 AM EDT) Anatomical Region Laterality Modality Mammography 03/31/2021 10:4 0 AM EDT Narrative 03/31/2021 11:16 AM EDT [facility] Diagnostic Imaging Department [address] [place] [address] Patient: ??JONAS LYNCH ?/Age/Sex: 1945 - 75 - F Unit#: ??[id number] ? Location/Status: ??SPDIMAM/REG CLI ? Mnemonic/Ordering Site: ??MAMDEXAAX/SPMAM Ordering Physician: ??MANI DONOHUE MD [place] Dexa Axial Skeleton - 03/31/216 HISTORY: ??The patient is a 75-year-old postmenopausal [...] probability of hip fracture of 3.5%. Code 08782 Dictating Physician: ??MARCELA EVANS MD Electronically Signed by: ??MARCELA EVANS MD Dic Date/Time: ??03/31/211114 Sign date/Time: ??03/31/211115 Procedure Note Marcela Evans MD - 05/19/2022 [facility] Diagnostic Imaging Department [address] [place] [address] Patient: YUNIERJONAS /Age/Sex: 1945 - 75 - F Unit#: [id number] [facility] Ordering Physician: MANI DONOHUE MD [facility] Dexa Axial Skeleton - 03/31/211105 HISTORY: The [...] density of the femurs bilaterally is 0.748 gm/pg2rjxkn is 74% of that of young normals [...] probability of hip fracture of 3.5%. Code 76749 Dictating Physician: MARCELA EVANS MD Electronically Signed by: MARCELA EVANS MD Dic Date/Time: 03/31/21 111 Sign date/Time: 03/31/21 1116 Mani Donohue MD IMG BI PROCEDURES Final Result from Last 3 Months or Most Recently Relevant to Health Maintenance Insurance [place] [employer] Care Teams Survey Data Technician Relationship Specialty Start Date End Date Laura Mensah MD [address] [place] [address] PCP - General 08/03/23
== END 2024-09-04 13:23 | disposition home or self-care (01) ==
LOC: HO.ACS 13:02
PROVIDERS: PCP Student in an Organized Health Care Education/Training Program; Visit Provider Internal Medicine Medical Oncology
DX: Z79.01 Long term (current) use of anticoagulants (principal)

== ENCOUNTER → 2024-09-04 13:02 | Outpatient (BNVA) | payer OTHER, SELFPAY | PROVIDERS: PCP Student in an Organized Health Care Education/Training Program; Visit Provider Internal Medicine Medical Oncology | DX: I48.20 Chronic atrial fibrillation, unspecified (principal); Z79.01 Long term (current) use of anticoagulants; Z51.81 Encounter for therapeutic drug level monitoring | CPT/HCPCS: 85610; 99211 ==

== ENCOUNTER 2024-09-14 13:01 | Outpatient (AMB) | payer OTHER, SELFPAY ==
[2024-09-14 13:11] LABS: Prothrombin Time Whole Bld POC 27.7 sec (11.1-13.5); ~PT, ~INR - Anti Coag Clinic 2.3 (0.9-1.1)
--- NOTE | 2024-09-14 13:18 | MHC.OFFVISCO ---
Intake Intake Visit Reasons: Anticoagulation Allergies pantoprazole [From Protonix] Allergy (Severe, Verified 09/14/24 13:04) Palpitations Medication List - Last Reconciled 09/14/24 by Beatriz Morrison RN cholecalciferol (vitamin D3) 25 mcg PO DAILY docusate sodium 100 mg PO BID PRN lisinopril-hydrochlorothiazide 20-25 mg 1 tab PO DAILY metoprolol succinate ER (Toprol XL) 75 mg PO DAILY warfarin See Protocol 5 mg orally 2.5mg x 5 days / week; Nursing Note INR: 2.3 in therapeutic range 2-3 Pt is on amoxicillin clav for sinus infection. states she has 2 days left to complete the course. Medications and supplements reviewed No changes in diet Denies any signs and symptoms of bleeding or bruising or clotting. Bleeding, bruising, clotting discussed Nutritional guidance given to increase her greens intake next week as the antibiotic can have a delayed effect to raise the INR Dose: continue same dose of 2.5mg X 5 days and 0mg on Tue & Tue F/U INR: 2 weeks Patient verbalizes understanding of instructions given Anti-Coag Initial Assessment Social Hx Patient Tobacco Use Status: Never used Tobacco alcohol intake: never Cardiovascular Hx: HTN, Arrhythmias, Rheumatic Fever, Varicose Veins and Other Lung Disease HX: DVT/PE Musculoskeletal Hx: Other GI Hx: Hemorrhoids and Other Cancer HX: No Psych. Illness/Depression: Yes (pt states no - md hx states yes ) Coding Level of Care Code Est Patient Level 1 Diagnoses Current use of anticoagulant therapy Z79.01 Results AMB INR Fingerstick AMB INR Fingerstick 2.3 Last Edit by Beatriz Morrison RN on 09/14/24 13:13 interface delay Assessment & Plan Assessment & Plan (1) Current use of anticoagulant therapy: Code(s): Z79.01 - alf (current) use of anticoagulants Category: Medical
--- OUTSIDE RECORDS SUMMARY | 2024-09-14 13:33 | XMS_ITS | Encounter Summary ---
Author Organization [facility] Address [address] [place] [address] Care Team Providers Care Diamond Sizer And Sorter Name Role Phone Laura Mensah MD Primary Care Provider [phone] Reason for Visit * Reason Onset Date Comments Results 08/30/2024 Encounter Details Date Type Department Care Team (Late Contact Info) Description 08/30/2024 Telephone Adult Medicine [address] [phone] Argelia Newby [place] Results Social History Tobacco [...] a detailed message will be sent via siOPTICA. documented in this encounter Plan of Treatment Upcoming Encounters Date Type Department Care Team (Late Contact Info) Description 09/24/2024 2:20 PM EDT Consult Gastroenterology - [place] [address] [facility] [address] [facility] [address] [place] [phone] Abbi Devlin, WICHO 175 [facility] [address] [place] [address] 11/23/2024 2:00 PM EDT Office Visit Adult Medicine [facility] [address] [place] [address] Laura Mensah MD [address] [place] [address] documented as of this encounter Visit Diagnoses Not on filedocumented in this encounter Care Teams Diamond Sizer And Sorter Relationship Specialty Start Date End Date Laura Mensah MD [address] [place] [address] PCP - General 08/03/23 documented as of this encounter
--- OUTSIDE RECORDS SUMMARY | 2024-09-14 13:33 | XMS_ITS | Clinical Summary ---
Author Organization [facility] Address [address] [facility] [address] [place] [address] Phone Care Team Providers Care Paperhanger Assistant Name Role Phone Ashok Pulido MD Primary [...] Visit [facility] [address] [phone] Jay De Leon MD [address] [phone] Health Maintenance Due Date Last Done Comments Pneumococcal Vaccine: 50+ Ye ars (1 of 2 - PCV) 1965 Influenza Vaccine (Season Ended) 2025 Hepatitis B Vaccine Aged Out No longe r eligible based on patient's age to complete this topic Insurance [place] Care Teams Paperhanger Assistant Relationship Specialty Start Date End Date Ashok Pulido MD [address] [address] PCP - General Internal Medicine 10/21/23
--- OUTSIDE RECORDS SUMMARY | 2024-09-14 13:33 | XMS_ITS | Clinical Summary ---
Author Organization [facility] [address] [place] [address] [place] [phone] Phone Care Team Providers Care Regional Training Manager Name Role Phone Laura Mensah MD Primary Care Provider Allergies Active Allergy Reactions Criticality Noted Date Comments Amlodipine Besylate 08/18/2022 Pantoprazole 06/10/2006 Medications bisacodyL (DULCOLAX) 5 mg EC tablet Take 2 tabs by mouth right before beginning bowel prep. Follow instructions given by office for timing. 06/07/19 24 Active docusate sodium (COLACE) 100 mg capsule Take 1 capsule (100 mg total) by mouth. 02/29/20 24 Active cholecalcifero l, vitamin D3, 350 mcg (14,000 unit) wafer Take by mouth. Activ e warfarin (COUMADIN) 2.5 mg tablet Take 1 tablet (2.5 mg total) by mouth 1 (one) time each day with dinner. 90 tablet 1 07/26/19 25 Active metoprolol succinate (TOPROL-XL) 50 mg 24 hr tablet Take 1 tablet (50 mg total) by mouth 1 (one) time each day. 90 tablet 1 07/26/19 25 Active lisinopril-hyd roCHLOROthiazi de (PRINZIDE,ZEST ORETIC) 20-25 mg per tablet Take 1 tablet by mouth 1 (one) time each day. 90 each 09/06/19 25 026 Active loratadine (CLARITIN) 10 mg tablet Take 1 tablet (10 mg total) by mouth 1 (one) time each day if needed for allergies. 90 each 09/06/19 25 025 Active amoxicillin (AMOXIL) 875 mg tablet Take 1 tablet (875 mg total) by mouth 2 (two) times a day for 10 days. 20 each 09/06/19 25 025 Active lisinopriL (PRINIVIL,ZEST RIL) 10 mg tablet Take 1 tablet (10 mg total) by mouth 1 (one) time each day. 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 08/08/2023 Sleep disorder 08/08/2023 Vitamin D deficiency 08/08/2023 Encounters Date Type Department Care Team Description 09/05/2024 2:30 PM EDT Office Visit Adult Medicine [address] [phone] Laura Mensah MD Primary hypertension (Primary Dx); Atrial fibrillation, unspecified type (CMS/HCC V24, CMS/HCC V28); Hyperlipidemia, unspecified hyperlipidemia type; Acute sinusitis, recurrence not specified, unspecified location 08/30/2024 Telephone Adult Medicine [address] [phone] Argelia Newby [place] Results 08/29/2024 8:23 AM EDT - 08/29/2024 11:59 PM EDT Hospital Encounter Radiology Department - [address] [phone] Hemangioma of liver; Hemangioma of spleen Discharge Disposition: Home or Self Care 07/03/2024 Telephone Adult Medicine [address] [phone] Laura Mensah MD Medication Problem (Lisinopril) from Last 3 Months Social History Tobacco Use Types Packs/Day Years Used Date Smoking Tobacco: Never Assessed Comments Unknown Sex and Gender Information Value Date Recorded Sex Assigned at Not on file Legal Sex Female 5:12 PM EST Gender Identity Not on file Sexual Orientation Not on file Last Filed Vital Signs Vital Sign Reading Time Taken Comments Blood Pressure 160/82 09/05/2024 2:09 PM EDT Pulse 48 09/05/2024 2:09 PM EDT Temperature 36.2 ??C (97.2 ??F) 09/05/2024 2:09 PM ED T Respiratory Rate 20 09/05/2024 2:09 PM EDT Oxygen Saturation 98% 09/05/2024 2:09 PM EDT Inhaled Oxygen Concentration - - Weight 61.2 kg (135 lb) 09/05/2024 2:09 PM EDT Height 160 cm (5' 3 ) 09/05/2024 2:09 PM EDT Body Mass Index 23.91 09/05/2024 2:09 PM EDT Plan of Treatment Upcoming Encounters Date Type Department Care Team (Late st Contact Info) Description 09/24/2024 2:20 PM EDT Consult Gastroenterology - [place] [address] [phone] Abbi Devlin, WICHO 175 [facility] [address] [place] [address] 11/23/2024 2:00 PM EDT Office Visit Adult Medicine [address] [phone] Laura Mensah MD [address] [place] [address] Health Maintenance Due Date Last Done Comments [...] 8: 47 AM EDT Hemangioma of spleen [facility] DEXA AXIAL SKELETON Routine 03/31/2021 11:16 AM [...] Signed Date: 08/29/2024 14:06 ET Workstation ID: [id number] Transcribed By: Self Edit Transcribed Date: 08/29/2024 [...] Signed Date: 08/29/2024 14:06 ET Workstation ID: [id number] Transcribed By: Self Edit Transcribed Date: 08/29/2024 13:59 ET us Viduglynn Mensah MD IMG US PROCEDURES Final Res ult * [place] DEXA AXIAL SKELETON (03/31/2021 11:16 AM EDT) Anatomical Region Laterality Modality Mammography 03/31/2021 10:4 0 AM EDT Narrative 03/31/2021 11:16 AM EDT [facility] Diagnostic Imaging Department [address] [place] [address] Patient: ??JONAS LYNCH ?/Age/Sex: 1945 - 75 - F Unit#: ??[id number] ? Location/Status: ??SPDIMAM/REG CLI ? Mnemonic/Ordering Site: ??MAMDEXAAX/SPMAM Ordering Physician: ??MANI DONOHUE MD [place] Dexa Axial Skeleton - 03/31/21 1106 HISTORY: ??The patient is a 75-year-old postmenopausal [...] probability of hip fracture of 3.5%. Code 92127 Dictating Physician: ??MARCELA EVANS MD Electronically Signed by: ??MARCELA EVANS MD Dic Date/Time: ??03/31/21 1115 Sign date/Time: ??03/31/21 1116 Procedure Note Marcela Evans MD - 05/19/2022 [facility] Diagnostic Imaging Department [address] [place], [place] [id number] Patient: JONAS LYNCH D.O.B./Age/Sex: 1945 - 75 - F Unit#: [id number] [facility] Ordering Physician: MANI DONOHUE MD [facility] Dexa Axial Skeleton - 03/31/211105 HISTORY: The [...] density of the femurs bilaterally is 0.748 gm/or9ejuiu is 74% of that of young normals [...] probability of hip fracture of 3.5%. Code 30084 Dictating Physician: MARCELA EVANS MD Electronically Signed by: MARCELA EVANS MD Dic Date/Time: 03/31/21 1115 Sign date/Time: 03/31/21 1116 Mani Doonhue MD IMG BI PROCEDURES Final Result from Last 3 Months or Most Recently Relevant to Health Maintenance Insurance [place] Care Teams Regional Training Manager Relationship Specialty Start Date End Date Laura Mensah MD [address] [place] [address] PCP - General 08/03/23
== END 2024-09-14 13:22 | disposition home or self-care (01) ==
LOC: HO.ACS 13:01
PROVIDERS: PCP Student in an Organized Health Care Education/Training Program; Visit Provider Internal Medicine Medical Oncology
DX: Z79.01 Long term (current) use of anticoagulants (principal)

== ENCOUNTER → 2024-09-14 13:01 | Outpatient (BNVA) | payer OTHER, SELFPAY | PROVIDERS: PCP Student in an Organized Health Care Education/Training Program; Visit Provider Internal Medicine Medical Oncology | DX: I48.20 Chronic atrial fibrillation, unspecified (principal); Z51.81 Encounter for therapeutic drug level monitoring; Z79.01 Long term (current) use of anticoagulants | CPT/HCPCS: 85610; 99211 ==

== ENCOUNTER 2024-10-03 13:03 | Outpatient (AMB) | payer OTHER, SELFPAY ==
[2024-10-03 13:10] LABS: Prothrombin Time Whole Bld POC 38.5 sec (11.1-13.5); ~PT, ~INR - Anti Coag Clinic 3.2 (0.9-1.1)
--- NOTE | 2024-10-03 13:23 | MHC.OFFVISCO ---
Intake Intake Visit Reasons: Anticoagulation Allergies pantoprazole [From Protonix] Allergy (Severe, Verified 10/03/24 13:03) Palpitations Medication List - Last Reconciled 10/03/24 by Fina Frederick RN cholecalciferol (vitamin D3) 25 mcg PO DAILY docusate sodium 100 mg PO BID PRN lisinopril-hydrochlorothiazide 20-25 mg 1 tab PO DAILY metoprolol succinate ER (Toprol XL) 75 mg PO DAILY warfarin See Protocol 5 mg orally 2.5mg x 5 days / week; Nursing Note NO CP,SOB,DIET/MED CHANGES,FALLS OR SX OF BLEEDING. CONTINUE PRESENT DOSE AND FOLLOW-UP IN 4 WEEKS. GOOD UNDERSTANDING OF DOSING INSTR. Anti-Coag Initial Assessment Social Hx Patient Tobacco Use Status: Never used Tobacco alcohol intake: never Cardiovascular Hx: HTN, Arrhythmias, Rheumatic Fever, Varicose Veins and Other Lung Disease HX: DVT/PE Musculoskeletal Hx: Other GI Hx: Hemorrhoids and Other Cancer HX: No Psych. Illness/Depression: Yes (pt states no - md hx states yes ) Coding Level of Care Code Est Patient Level 1 Diagnoses Current use of anticoagulant therapy Z79.01 Assessment & Plan Assessment & Plan (1) Current use of anticoagulant therapy: Code(s): Z79.01 - buttermaker (current) use of anticoagulants Category: Medical
--- OUTSIDE RECORDS SUMMARY | 2024-10-03 14:14 | XMS_ITS | Encounter Summary ---
Author Organization [facility] Address [address] [place] [address] Care Team Providers Care Rocket Propellant Plant Supervisor Name Role Phone Laura Mensah MD Primary Care Provider [phone] Reason for Referral * Consultation (Routine) - Closed Specialty Diagnoses / Procedures Referred By Contswetha t Referred To Contact Cardiology Diagnoses Chronic atrial fibrillation (CMS/HCC V24, CMS/HCC V28) Laura Menash MD [address] [place], [place] Phone: tel: fax: Nikko Ornelas MD [address] [facility] [place], [place] Phone: tel: fax: Referral ID Status Reason Start Date Expiration Date V isits Requested Visits Authorized [id number] Closed Specialty Services Required 09/26/2024 09/26/2025 6 6 Encounter Details Date Type Department Care Team (Late st Contact Info) Description 09/24/2024 Telephone Adult Medicine [address] [place] [place] [address] Laura Mensah MD [address] [place], [place] Social History Tobacco Use Types Packs/Day Years Used Date Smoking Tobacco: Never Assessed Comments Unknown Sex and Gender Information Value Date Recorded Sex Assigned at Not on file Legal Sex Female 5:12 PM EST Gender Identity Not on file Sexual Orientation Not on file documented as of this encounter Progress Notes * Ping Fermín - 09/24/2024 12:08 PM EDT What insurance does the patient have today? Payor: @[email or web address]/@[email or web address]@ Referrals cannot be processed if the insurance is not accurate. If the insurance listed above is NO BILLING INFORMATION FOUND FOR THIS ENCOUNTER then the patients correct insurance must be obtainedand registered in [facility] or their referral can not be processed. Name of person calling to request this referral? FAX - [facility] Referred To Provider (Include first and last name): Nikko Ornelas NPI (if known): [id number] Order/Specialty requested cardiology Chief Complaint (Note: This is not a body part or a procedure): I48.2 Has the patient seen provider for this problem/Dx before? yes Referred To Provider Address: Referred To Provider Referred To Provider Does patient have an appointment scheduled?: yes If yes, what is the date of the appointment?: 10/02/24 Is this a retro request? no Number of visits requested: 6 Is this appointment related to: MVA or worker compensation? no documented in this encounter Plan of Treatment Upcoming Encounters Date Type Department Care Team (Late st Contact Info) Description 11/23/2024 2:00 PM EDT Office Visit Adult Medicine [facility] [address] [place] [address] Laura Mensah MD [address] [place] [address] Scheduled Referrals Name Type Priority Associated Diagnoses Orde r Schedule Ambulatory referral to Cardiology Outpatient Referral Routine Chronic atrial fibrillation (CMS/HCC V24, CMS/HCC V28) Expected: 09/25/2024, Expires: 09/24/2025 documented as of this encounter Visit Diagnoses Diagnosis Chronic atrial fibrillation (CMS/HCC V24, CMS/HCC V28)- Primary Atrial fibrillation documented in this encounter Care Teams Rocket Propellant Plant Supervisor Relationship Specialty Start Date End Date Laura Mensah MD [address] [place] [address] PCP - General 08/03/23 documented as of this encounter
--- OUTSIDE RECORDS SUMMARY | 2024-10-03 14:14 | XMS_ITS | Encounter Summary ---
Author Organization [facility] Address [address] [place] [address] Care Team Providers Care Automotive Refinisher Name Role Phone Laura Mensah MD Primary Care Provider [phone] Reason for Visit * Reason Onset Date Comments Results 08/30/2024 Encounter Details Date Type Department Care Team (Late Contact Info) Description 08/30/2024 Telephone Adult [address] [phone] Argelia Newby [place] Results Social History Tobacco [...] a detailed message will be sent via [employer]. documented in this encounter Plan of Treatment Upcoming Encounters Date Type Department Care Team (Late Contact Info) Description 11/23/2024 2:00 PM EDT Office Visit Adult [address] [phone] Laura Mensah MD [address] [place] [address] documented as of this encounter Visit Diagnoses Not on filedocumented in this encounter Care Teams Automotive Refinisher Relationship Specialty Start Date End Date Laura Mensah MD [address] [place] [address] PCP - General 08/03/23 documented as of this encounter
--- OUTSIDE RECORDS SUMMARY | 2024-10-03 14:14 | XMS_ITS | Continuity of Care Document ---
Author Organization [facility] Address [address] [place] [address]- Care Team Providers Care Ethics Instructor Name Role Phone Aamir Cunningham Primary Care Physician [id number] Date(s): 08/22/24 - 09/27/24 [facility] [address] [place] [address]- Attending Physician: Not on Staff, Attending MD Referring Physician: Dannie Tuttle MD Encounter Type: Pre Office Visit Allergies, Adverse Reactions, Alerts Substance [...] Maintenance, 07/31/24 10:54:00 AM EST, Tablet, [id number], Partial fill upon patient request if [...] bone mineral density in the left femur. Vital Signs Most recent to oldest [Reference Range]: 1 Blood Pressure [90-138/55-84 mm Hg] 119/ 61mm Hg (09/12/24 12:51 PM) Blood pressure sites Arm, left (09/12/24 12:51 PM) Social History Social History Type Response Smoking Status Never (less than 100 in lifetime) entered on: 07/31/24 Sex Sex Representation Female (finding) Patient Care team information Care Team Personnel Name: Aamir Cunningham Position: [facility] PCO Associate Professional Member Role: PCP Address: [address] [place] [address] Telecom: Name: Joelle Rose Position: [facility] Outreach Member Role: Lifetime Consulting Physician Care Team Related Persons Name: TERESA MALDONADO Insurance Providers Guarantor name: CLINTONDARVIN NOLANTANYA Health Plan Information #: 2 Payer: [facility] [employer] Member Number: [id number] Policy Number: NA Group Number: NA Health Plan Information #: 1 Payer: [employer] Member Number: [id number] Policy Number: NA Group Number: HAM Health Plan Information #: 3 Payer: MEDICARE PART B OUTPT Member Number: NA Policy Number: NA Group Number: NA
--- OUTSIDE RECORDS SUMMARY | 2024-10-03 14:14 | XMS_ITS | Clinical Summary ---
Author Organization [facility] Address [address] [facility] [address] [place] [address] Phone Care Team Providers Care Rubber Calender Helper Name Role Phone Ashok Pulido MD [...] Office Visit [facility] [address] [phone] Jay De Leon MD [address] [phone] Health Maintenance Due Date Last Done Comments Pneumococcal Vaccine: 50+ Ye ars (1 of 2 - PCV) 1964 Influenza Vaccine (Season Ended) 2025 Hepatitis B Vaccine Aged Out No longe r eligible based on patient's age to complete this topic Insurance [place] Care Teams Rubber Calender Helper Relationship Specialty Start Date End Date Ashok Pulido MD [address] [address] PCP - General Internal Medicine 10/21/23
--- OUTSIDE RECORDS SUMMARY | 2024-10-03 14:14 | XMS_ITS | Clinical Summary ---
Author Organization [facility] [address] [place] [address] [place] [phone] Phone Care Team Providers Care Lube Attendant Name Role Phone Laura Mensah MD Primary Care Provider Allergies Active Allergy Reactions Criticality Noted Date Comments Amlodipine Besylate 08/18/2022 Pantoprazole 06/10/2006 Medications bisacodyL (DULCOLAX) 5 mg EC tablet 4 Active docusate sodium (COLACE) 100 mg capsule Take 1 capsule (100 mg total) by mouth. 4 Active cholecalcifero l, vitamin D3, 350 mcg (14,000 unit) wafer Take by mouth. Active warfarin (COUMADIN) 2.5 mg tablet Take 1 tablet (2.5 mg total) by mouth 1 (one) time each day with dinner. 90 tablet 1 5 Active metoprolol succinate (TOPROL-XL) 50 mg 24 hr tablet Take 1 tablet (50 mg total) by mouth 1 (one) time each day. 90 tablet 1 5 Active lisinopril-hyd roCHLOROthiazi de (PRINZIDE,ZEST ORETIC) 20-25 mg per tablet Take 1 tablet by mouth 1 (one) time each day. 90 each 5 09/06/19 26 Active loratadine (CLARITIN) 10 mg tablet Take 1 tablet (10 mg total) by mouth 1 (one) time each day if needed for allergies. 90 each 5 12/05/19 25 Active lisinopriL (PRINIVIL,ZEST RIL) 10 mg tablet Take 1 tablet (10 mg total) by mouth 1 (one) time each day. 90 each 5 09/06/19 25 Discontinued amoxicillin (AMOXIL) 875 mg tablet Take 1 tablet (875 mg total) by mouth 2 (two) times a day for 10 days. 20 each 5 09/16/19 25 Active Problems Problem Noted Date Diagnosed Date [...] Encounters Date Type Department Care Team Description 09/24/2024 2:20 PM EDT Consult Gastroenterology - [place] [address] [place] [address] Abbi Devlin NP Lesion of spleen (Primary Dx); Chronic constipation; Diverticulosis of colon 09/24/2024 Telephone Adult Medicine [address] [phone] Laura Mensah MD 09/05/2024 2:30 PM EDT Office Visit Adult Medicine [address] [phone] Laura Mnesah MD Primary hypertension (Primary Dx); Atrial fibrillation, unspecified type (CMS/HCC V24, CMS/HCC V28); Hyperlipidemia, unspecified hyperlipidemia type; Acute sinusitis, recurrence not specified, unspecified location 08/30/2024 Telephone Adult Medicine [address] [phone] Argelia Newby [place] Results 08/29/2024 8:23 AM EDT - 08/29/2024 11:59 PM EDT Hospital Encounter Radiology Department [address] [address] Hemangioma of liver; Hemangioma of spleen Discharge Disposition: Home or Self Care from Last 3 Months Social History Tobacco Use Types Packs/Day Years Used Date Smoking Tobacco: Never Assessed Comments Unknown Sex and Gender Information Value Date Recorded Sex Assigned at Not on file Legal Sex Female 5:12 PM EST Gender Identity Not on file Sexual Orientation Not on file Last Filed Vital Signs Vital Sign Reading Time Taken Comments Blood Pressure 115/75 09/24/2024 2:08 PM EDT Pulse 77 09/24/2024 2:08 PM EDT Temperature 36.2 ??C (97.2 ??F) 09/05/2024 2:09 PM ED T Respiratory Rate 20 09/05/2024 2:09 PM EDT Oxygen Saturation 98% 09/24/2024 2:08 PM EDT Inhaled Oxygen Concentration - - Weight 61.2 kg (135 lb) 09/24/2024 2:08 PM EDT Height 157.5 cm (5' 2 ) 09/24/2024 2:08 PM EDT Body Mass Index 24.69 09/24/2024 2:08 PM EDT Plan of Treatment Upcoming Encounters Date Type Department Care Team (Late st Contact Info) Description 11/23/2024 2:00 PM EDT Office Visit Adult Medicine [address] [phone] Laura Mensah MD [address] [place] [address] Health Maintenance Due Date Last Done Comments [...] 8: 47 AM EDT Hemangioma of spleen [facility] DEXA AXIAL SKELETON Routine 03/31/2021 11:16 AM [...] Signed Date: 08/29/2024 14:06 ET Workstation ID: [id number] Transcribed By: Self Edit Transcribed Date: 08/29/2024 [...] Signed Date: 08/29/2024 14:06 ET Workstation ID: [id number] Transcribed By: Self Edit Transcribed Date: 08/29/2024 13:59 ET us Vidur Doug Mensah MD IMG US PROCEDURES Final Res ult * [facility] DEXA AXIAL SKELETON (03/31/2021 11:16 AM EDT) Anatomical Region Laterality Modality Mammography 03/31/2021 10:4 0 AM EDT Narrative 03/31/2021 11:16 AM EDT [facility] Diagnostic Imaging Department [address] [place], [place] [id number] Patient: ??JONAS LYNCH ?/Age/Sex: 1945 - 75 - F Unit#: ??[id number] ? Location/Status: ??SPDIMAM/REG CLI ? Mnemonic/Ordering Site: ??MAMDEXAAX/SPMAM Ordering Physician: ??MANI DONOHUE MD [place] Dexa Axial Skeleton - 03/31/211105 HISTORY: ??The [...] probability of hip fracture of 3.5%. Code 43405 Dictating Physician: ??MARCELA EVANS MD Electronically Signed by: ??MARCELA EVANS MD Dic Date/Time: ??03/31/21 1115 Sign date/Time: ??03/31/21 1116 Procedure Note Marcela Evans MD - 05/19/2022 [facility] Diagnostic Imaging Department [address] [place] [address] Patient: JONAS LYNCH D.O.B./Age/Sex: 1945 - 75 - F Unit#: [id number] Location/Status: SPDIMAM/REG CLI Mnemonic/Ordering Site: MAMDEXAAX/SPMAM Ordering Physician: MANI DONOHUE MD [place] Dexa [...] density of the femurs bilaterally is 0.748 gm/wa0mljgm is 74% of that of young normals [...] probability of hip fracture of 3.5%. Code 41194 Dictating Physician: MARCELA EVANS MD Electronically Signed by: MARCELA EVANS MD Dic Date/Time: 03/31/21 111 Sign date/Time: 03/31/21 111 Mani Donohue MD IMG BI PROCEDURES Final Result from Last 3 Months or Most Recently Relevant to Health Maintenance Insurance [place] [employer] [employer] Care Teams Lube Attendant Relationship Specialty Start Date End Date Laura Mensah MD [address] [place] [address] PCP - General 08/03/23
== END 2024-10-03 13:26 | disposition home or self-care (01) ==
LOC: HO.ACS 13:03
PROVIDERS: PCP Student in an Organized Health Care Education/Training Program; Visit Provider Internal Medicine Medical Oncology
DX: Z79.01 Long term (current) use of anticoagulants (principal)

== ENCOUNTER → 2024-10-03 13:03 | Outpatient (BNVA) | payer OTHER, SELFPAY | PROVIDERS: PCP Student in an Organized Health Care Education/Training Program; Visit Provider Internal Medicine Medical Oncology | DX: I48.20 Chronic atrial fibrillation, unspecified (principal); Z51.81 Encounter for therapeutic drug level monitoring; Z79.01 Long term (current) use of anticoagulants | CPT/HCPCS: 85610; 99211 ==

== ENCOUNTER 2024-10-29 13:50 | Outpatient (AMB) | payer OTHER, SELFPAY ==
[2024-10-29 13:55] LABS: Prothrombin Time Whole Bld POC 24.4 sec (11.1-13.5)
--- NOTE | 2024-10-29 14:00 | MHC.OFFVISCO ---
Intake Intake Visit Reasons: Anticoagulation Allergies pantoprazole [From Protonix] Allergy (Severe, Verified 10/03/24 13:03) Palpitations Nursing Note INR: 2.0 in therapeutic range Medications and supplements reviewed No changes in health, diet, medications, or supplements, Denies any signs and symptoms of bleeding or bruising or clotting. Bleeding, bruising, clotting discussed Nutritional guidance given Dose: 2.5mg x 5 days F/U INR: 1 month Patient verbalizes understanding of instructions given Anti-Coag Initial Assessment Social Hx Patient Tobacco Use Status: Never used Tobacco alcohol intake: never Cardiovascular Hx: HTN, Arrhythmias, Rheumatic Fever, Varicose Veins and Other Lung Disease HX: DVT/PE Musculoskeletal Hx: Other GI Hx: Hemorrhoids and Other Cancer HX: No Psych. Illness/Depression: Yes (pt states no - md hx states yes ) Coding Level of Care Code Est Patient Level 1 Diagnoses Current use of anticoagulant therapy Z79.01 Assessment & Plan Assessment & Plan (1) Current use of anticoagulant therapy: Code(s): Z79.01 - [facility] (current) use of anticoagulants Category: Medical
--- OUTSIDE RECORDS SUMMARY | 2024-10-29 15:04 | XMS_ITS | Clinical Summary ---
Author Organization [facility] Address [address] [address] Phone Care Team Providers Care Applications Architect Name Role Phone Laura Mensah Primary Care Provider [phone] Allergies No known active allergies Medications metoprolol succinate XL (TOPROL XL) 50 MG 24 hr tablet Take 50 mg by mouth 1 (one) time each day Do not crush or chew. Active warfarin (COUMADIN) 2.5 MG tablet Take 2.5 mg by mouth 1 (one) time each day Take as directed per After Visit Summary. Active lisinopril-hyd roCHLOROthiazi de (PRINZIDE,ZEST ORETIC) 20-12.5 MG per tablet Take 1 tablet by mouth 1 (one) time each day Active digoxin (LANOXIN) 125 MCG tablet Take 125 mcg by mouth 1 (one) time each day 025 Discontinued amLODIPine (NORVASC) 5 MG tablet Take 5 mg by mouth 1 (one) time each day 025 Discontinued Active Problems Problem Noted Date Diagnosed Date Hypertension 08/08/2023 Paroxysmal atrial fibrillation 08/08/2023 Chronic kidney disease 08/08/2023 Vitamin D deficiency 08/08/2023 Other cardiomyopathy 08/08/2023 Glossitis 08/08/2023 Gastroesophageal reflux disease 08/08/2023 Osteoporosis 08/08/2023 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 08/08/2023 Sleep disorder 08/08/2023 Encounters Date Type Department Care Team Description 10/15/2024 2:30 PM EDT Office Visit [facility] [address] [address] Jay De Leon MD Hypertension (Primary Dx) from Last 3 Months Social History Tobacco [...] Sign Reading Time Taken Comments Blood Pressure 106/74 10/15/2024 2:25 PM EDT Pulse 68 10/15/2024 2:25 PM EDT Temperature - - Respiratory Rate - - Oxygen Saturation - - Inhaled Oxygen Concentration - - Weight 61.1 kg (134 lb 12.8 oz) 10/15/2024 2:25 PM EDT Height - - Body Mass Index - - Plan of Treatment Upcoming Encounters Date Type Department Care Team (Late st Contact Info) Description 10/14/2025 2:30 PM EDT [facility] [address] [phone] Jay De Leon MD [address] [phone] Health Maintenance Due Date Last Done Comments Pneumococcal Vaccine: 50+ Ye ars (2 of 2 - PCV) 09/13/2017 09/13/2016 Influenza Vaccine (Season Ended) 2025 Hepatitis B Vaccine Aged Out No longe r eligible based on patient's age to complete this topic Insurance [facility] Medicare Medicaid [place] [employer] Care Teams Applications Architect Relationship Specialty Start Date End Date Laura Mensah [address] [place] [address] PCP - General 10/15/24
== END 2024-10-29 14:02 | disposition home or self-care (01) ==
LOC: HO.ACS 13:50
PROVIDERS: PCP Student in an Organized Health Care Education/Training Program; Visit Provider Internal Medicine Medical Oncology
DX: Z79.01 Long term (current) use of anticoagulants (principal)

== ENCOUNTER → 2024-10-29 13:50 | Outpatient (BNVA) | payer OTHER, SELFPAY | PROVIDERS: PCP Student in an Organized Health Care Education/Training Program; Visit Provider Internal Medicine Medical Oncology | DX: I48.20 Chronic atrial fibrillation, unspecified (principal); Z79.01 Long term (current) use of anticoagulants; Z51.81 Encounter for therapeutic drug level monitoring | CPT/HCPCS: 85610; 99211 ==

== ENCOUNTER 2024-11-26 13:02 | Outpatient (AMB) | payer OTHER, SELFPAY ==
--- OUTSIDE RECORDS SUMMARY | 2024-11-23 14:00 | XMS_ITS | Encounter Summary ---
Author Organization [facility] Address [address] [place] [address] Care Team Providers Care Lurer Name Role Phone Laura Mensah MD Primary Care Provider [phone] Reason for Visit * Reason Comments annual wellness visit Encounter Details Date Type Department Care Team (Late st Contact Info) Description 11/23/2024 2:00 PM EDT Office Visit Adult Medicine [facility] [address], [place] [phone] Laura Mensah MD [address] [place] [address] Routine general medical examination at a health care facility (Primary Dx); Primary hypertension; Atrial fibrillation, unspecified type (CMS/HCC V24, CMS/HCC V28); Family history of parotid cancer Social History Tobacco Use Types Packs/Day Years Used Date Smoking Tobacco: Never Assessed Comments Unknown Sex and Gender Information Value Date Recorded Sex Assigned at Not on file Legal Sex Female 5:12 PM EST Gender Identity Not on file Sexual Orientation Not on file documented as of this encounter Last Filed Vital Signs Vital Sign Reading Time Taken Comments Blood Pressure 88/60 11/23/2024 1:48 PM EDT Pulse 52 11/23/2024 1:48 PM EDT Temperature 35.8 C (96.4 F) 11/23/2024 1:48 PM EDT Respiratory Rate 16 11/23/2024 1:48 PM EDT Oxygen Saturation - - Inhaled Oxygen Concentration - - Weight 60.3 kg (133 lb) 11/23/2024 1:48 PM EDT Height 157.5 cm (5' 2 ) 11/23/2024 1:48 PM EDT Body Mass Index 24.33 11/23/2024 1:48 PM EDT documented in this encounter Patient Instructions * Attachments The following attachments cannot be sent through Care Everywhere. * Mammogram (Nigerian) * Colon Cancer: Screening (Nigerian) * Healthy Eating: At Home: Quick List (Nigerian) * Physical Activity: Walking (Nigerian) * Advance Directives (Nigerian) * Advance Care Planning (Nigerian) * Diet: DASH (Nigerian) * Exercise: General Info (Nigerian) * Vitamin K Diet (Nigerian) * High Triglycerides: General Info (Nigerian) documented in this encounter Ordered Prescriptions Prescription Sig Dispense Quantity Refills Last Filled Start Date End Date metoprolol succinate (TOPROL-XL) 50 mg 24 hr tablet Take 1 tablet (50 mg total) by mouth 1 (one) time each day. 90 tablet 1 11/23/2024 hydroCHLOROthiazid e 12.5 mg tablet Take 1 tablet (12.5 mg total) by mouth 1 (one) time each day. 90 each 11/23/2024 02/21/2025 lisinopriL (PRINIVIL,ZESTRIL) 10 mg tablet Take 1 tablet (10 mg total) by mouth 1 (one) time each day. 90 each 11/23/2024 02/21/2025 documented in this encounter Progress Notes * Laura Mensah MD - 11/23/2024 2:00 PM EDT Annual Wellness Visit Health Maintenance Due Topic Date Due ??? COVID-19 Vaccine (1) Never done ??? Hepatitis A Vaccines (1 of 2 - Risk 2-dose series) Never done ??? Zoster Vaccines (1 of 2) Never done ??? Hepatitis B Vaccines (1 of 3 - Risk 3-dose series) Never done ??? Pneumococcal Vaccine: 50+ Years (2 of 2 - PCV) 09/13/2017 ??? RSV Immunization Adult Patients (1 - 1-dose 75+ series) Never done ??? Falls Risk Assessment Never done ??? Depression Screening Never done ??? Hepatitis C Screening Never done ??? Social Influencers of Health Screening Never done ??? Medicare Annual Wellness Visit Never done Adult vaccinations: CDC Recommendations Resources for Educating Adult Patients about Vaccines CDC * Laura Mensah MD - 11/23/2024 2:00 PM EDT CHIEF COMPLAINT: annual wellness visit IDENTIFIER: Giles Lynch is a 78 y.o. old female. HPI: Patient presents today for annual physical exam. History of Present Illness The patient presents for an annual wellness visit. She has been under the care of Dr. De [place] for hypertension, with annual visits. Her current medication regimen includes metoprolol 50 mg daily and lisinopril- hydrochlorothiazide 20 mg. She reports thather blood pressure occasionally drops to 106/57, causing fatigue. She also mentions that her heart rate decreases when she is lying down but remains between 80 and 90 during physical activity. Her heart rate at rest is around 60, and it drops to 59 or 60 during sleep. She has discontinued the use of docusate and Dulcolax as she believes her condition has improved since stopping amlodipine. She monika warfarin and is being followed by the warfarin clinic at [place]. She maintains an active lifestyle, walking approximately 10,000 steps daily. She experiences some discomfort in her heels and uses flatfoot insoles. She resides with her grandson and has declined theRSV and shingles vaccines. She had a colonoscopy two years ago, which was normal. Her mammograms have also been normal. She plans to visit the dentist due to a tooth issue. She has only had one Pap smear in her life and does not regularly see a fresh meat grader. She reports no depression or history of infections. She has a history of sinus issues, which are currently under control, but she needs to be cautious during the spring and fall seasons. She recently had an eye exam and was told she has a small cataract that does not require immediate attention. She has a family history of bladder cancer in her mother. 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 She consulted a specialist about a spleen mass three months ago, which was found to be benign. She has not had a bowel movement today and sometimes goes three to four days without one. She has been diagnosed with diver ticulosis but reports no pain or increased bathroom use. She consumes a lot of rice and sugar in her coffee but avoids fatty foods, cheese, fast food, and red meat. She includes vegetables in her meals and enjoys chicken and salmon. PAST SURGICAL HISTORY: Parotid gland tumor removal (07/2021) Colonoscopy (10/2022) FAMILY HISTORY Her mother had a tumor in the bladder, which was not malignant. ROS: The remainder of review of systems is noncontributory. PAST MEDICAL HISTORY: Patient Active Problem List Diagnosis Date Noted Hyperlipidemia 09/05/2024 Abdominal bloating 02/29/2024 Diverticula of colon 02/29/2024 Chronic kidney disease 08/08/2023 Gastroesophageal reflux disease 08/08/2023 Glossitis 08/08/2023 Myocardiopathy ([facility] V24, [facility] V28) 08/08/2023 Osteoporosis 08/08/2023 Paroxysmal atrial fibrillation (CMS/HCC V24, [facility] V28) 08/08/2023 Primary hypertension 08/08/2023 Recurrent and [...] Outpatient Medications Marked as Taking for the 11/23/24 encounter (Office Visit) with Laura Mensah MD Medication Sig Dispense Refill cholecalciferol, vitamin D3, 350 mcg (14,000 unit) wafer Take by mouth. loratadine (CLARITIN) 10 mg tablet Take 1 tablet (10 mg total) by mouth 1 (one) time each day if needed for allergies. 90 each 0 metoprolol succinate (TOPROL-XL) 50 mg 24 hr tablet Take 1 tablet (50 mg total) by mouth 1 (one) time each day. 90 tablet 1 warfarin (COUMADIN) 2.5 mg tablet Take 1 tablet (2.5 mg total) by mouth 1 (one) time each day with dinner. 90 tablet 1 [DISCONTINUED] docusate sodium (COLACE) 100 mg capsule Take 1 capsule (100 mg total) by mouth. ALLERGIES: Amlodipine besylate and Pantoprazole PHYSICAL EXAM: Blood pressure 88/60, pulse 52, temperature 35.8 ??C (96.4 ??F), temperature source Temporal, resp.rate 16, height 1.575 m (62 ), weight 60.3 kg (133 lb). Body mass index is 24.33 kg/m??. BMI is 18.5 to 24.9 (within the normal range) and will be followed Physical Exam General Appearance: Normal. Vital signs: Within normal limits. HEENT: Right eardrum shows evidence of scar tissue. Left eardrum appears normal. Respiratory: Clear to auscultation, no wheezing, rales or rhonchi. Cardiovascular: Regular rate and rhythm, no murmurs, rubs, or gallops. Gastrointestinal: Soft, no tenderness, no distention, no masses. Extremities: No leg swelling noted. Skin: Warm and dry, no rash. Neurological: Normal. LABS/IMAGING: No results found for: WBC , HGB , HCT , MCV Lab Results Component Value Date NA 137 11/13/2024 K 3.7 11/13/2024 CO2 33 (H) 11/13/2024 CL 100 11/13/2024 BUN 18 11/13/2024 ALKPHOS 78 11/13/2024 Lab Results Component Value Date CHOL 169 11/13/2024 HDL 50 11/13/2024 TRIG 171 (H) 11/13/2024 No results found for: TSH Results Labs - Triglycerides: 171 mg/dL Imaging - Ultrasound of the spleen: Lesion in the spleen IMPRESSION: 1. Routine general medical examination at a health care facility 2. Primary hypertension 3. Atrial fibrillation, unspecified type (CMS/HCC V24, CMS/HCC V28) 4. Family history of parotid cancer PLAN: 1. Health maintenance: The patient presented for an evaluation of general health. As part of this visit, we reviewed the following issues, which are considered an essential part of preventative health in this age group: - Breast cancer screening, which includes clinical exam and mammograms annually - mammogram up-to-date. May discontinue at age 70 at discretion of patient and provider. - Colon cancer screening (colonoscopy every 10 years/annual FOBT plus flexi sigmoidoscopy every 5 years/double-contrast BE every 5 years/Cologuard every 3 years/Annual FOBT) - up to date. May discontinue at age 80 at the discretion of patient and provider. - Cervical cancer testing every 1-5 years - PATIENT DECLINED . May discontinued at age 65 at the discretion of the patient and provider. - Blood pressure annual screening performed - Osteoporosis prevention including calcium/vitamin D intake, weight bearing exercise & smokingcessation - Screening for depression - NO HX - Screening for Type 2 diabetes mellitus in those with hypertension and/or hyperlipidemia - Prevention of and/or testing for infectious diseases, which may include Chlamydia, Gonorrhea, Syphilis, HIV, Hepatitis C and Tuberculosis - advice about STD prevention provided - Recommendations about immunizations - patient is due for COVID-19 vaccination but defers this - Recommendation of an eye exam for glaucoma every 2-4 years in this age range - patient is up-to-date - Screening for substance abuse (including tobacco, alcohol, and recreational drugs) - see Substance & Sexuality section of medical record - Genetic cancer risk screening - NO INDICATION: Hereditary Cancer Syndrome Risk Assessment completed and evaluated. No indication found for genetic testing at this time. - In addition to reviewing these issues, I have reviewed the following sections of the chart: Past Medical History, Social History, and Social History - Did you have a dental problem in the last 6 months? Yes - Did you have a dental visit in the last 12 months? No Assessment & Plan 1. Hypertension (hypotension at present) - Blood pressure readings have been consistently low, necessitating a reduction in lisinopril dosage from 20 mg to 10 mg daily. - Hydrochlorothiazide component will be adjusted to 12.5 mg daily. - Advised to monitor blood pressure daily and maintain a record of heart rate at rest. - If blood pressure remains uncontrolled, exceeding 140/90, may increase hydrochlorothiazide dosageto 25 mg daily - Will follow-up in 2 weeks. - Patient will continue with Toprol-XL 50 mg daily 2. Atrial Fibrillation. - Currently on metoprolol SUCCINATE (TOPROL XL) 50 mg daily. - Advised to monitor heart rate at rest and keep track of any significant drops, especially if persistently <60 bpm, as this may increase the risk of dizziness and falls. - No new medications or changes in current therapy discussed. 3. Hypertriglyceridemia. - Triglyceride levels are slightly elevated at 171 mg/dL. - Advised to reduce intake of carbohydrates and sugars. - Recheck of triglyceride levels will be scheduled in 3 months, along with other annual labs including thyroid function and complete blood count. 4. POSSIBLE Diverticulosis. - Likely has diverticulosis based on patient's hx - Advised to avoid foods that may exacerbate the condition. - No new medications or changes in current therapy discussed. 5. Health Maintenance. - Colonoscopy two years ago was normal. - Mammogram was normal. - Up to date with dental and eye visits. - Ultrasound will be scheduled for surveillance of a previously identified spleen lesion. Follow-up - Follow up in 2 weeks for blood pressure check. Orders Placed This Encounter Procedures Lipid panel with reflex to direct LDL Standing Status: Future Standing Expiration Date: 11/23/2025 Thyroid stimulating hormone with reflex to free t4 and free t3 Standing Status: Future Standing Expiration Date: 11/23/2025 CBC and differential Standing Status: Future Standing Expiration Date: 11/23/2025 Laura Mensah MD on 11/23/2024 at 2:24 PM EDT documented in this encounter Plan of Treatment Upcoming Encounters Date Type Department Care Team (Late st Contact Info) Description 12/13/2024 3:30 PM EDT Office Visit Adult Medicine [address] [phone] Laura Mensah MD [address] [place] [address] 02/28/2025 8:45 AM EDT Appointment Radiology Department [address] [phone] 11/26/2025 2:00 PM EDT Office Visit Adult [address] [phone] Laura Mensah MD [address] [place] [address] Scheduled Orders Name Type Priority Associated Diagnoses Orde r Schedule Lipid panel with reflex to direct LDL Lab Routine Routine general medical examination at a health care facility 1 Occurrences starting 11/23/2024 until 11/23/2025 Thyroid stimulating hormone with reflex to free t4 and free t3 Lab Routine Routine general medical examination at a [facility] care facility 1 Occurrences starting 11/23/2024 until 11/23/2025 CBC and differential Lab Routine Routine general medical examination at a [facility] care facility 1 Occurrences starting 11/23/2024 until 11/23/2025 Basic metabolic panel Lab Routine Routine general medical examination at a [facility] care facility Expected: 11/23/2024, Expires: 05/25/2025 documented as of this encounter Visit Diagnoses Diagnosis Routine general medical examination at a [facility] care facility- Primary Primary hypertension Unspecified essential hypertension Atrial fibrillation, unspecified type ([facility] V24, [facility] V28) Family history of parotid cancer documented in this encounter Discontinued Medications Medication Sig Discontinue Reason Start Date End Da te lisinopril-hydroCHLOROth iazide (PRINZIDE,ZESTORETIC) 20-25 mg per tablet Take 1 tablet by mouth 1 (one) time each day. 09/05/2024 11/23/2024 docusate sodium (COLACE) 100 mg capsule Take 1 capsule (100 mg total) by mouth. 02/29/2024 11/23/2024 bisacodyL (DULCOLAX) 5 mg EC tablet 06/07/2023 11/23/2024 metoprolol succinate (TOPROL-XL) 50 mg 24 hr tablet Take 1 tablet (50 mg total) by mouth 1 (one) time each day. Reorder 07/26/2024 11/23/2024 documented as of this encounter Additional Health Concerns Assessment Noted Time PHQ-9 Depression Total Score: 0 11/24/19 25 1:52 PM EDT documented as of this encounter Care Teams Lurer Relationship Specialty Start Date End Date Laura Mensah MD [address] [place] [address] PCP - General 08/03/23 documented as of this encounter
[2024-11-26 13:21] LABS: Prothrombin Time Whole Bld POC 22.4 sec (11.1-13.5); ~PT, ~INR - Anti Coag Clinic 1.9 (0.9-1.1)
--- NOTE | 2024-11-26 13:26 | MHC.OFFVISCO ---
Intake Intake Visit Reasons: Anticoagulation Allergies pantoprazole (From Protonix) Allergy (Severe, Verified 11/26/24 13:14) Palpitations Medication List - Last Reconciled 11/26/24 by Beatriz Morrison RN cholecalciferol (vitamin D3) 25 mcg PO DAILY docusate sodium 100 mg PO BID PRN lisinopril-hydrochlorothiazide 10-12.5 mg 1 tab PO DAILY metoprolol succinate ER (Toprol XL) 75 mg PO DAILY warfarin See Protocol 5 mg orally 2.5mg x 5 days / week; Nursing Note INR: 1.9 in therapeutic range 2-3 Pt denies missed dose Medications and supplements reviewed No changes in health, diet, medications, or supplements, Denies any signs and symptoms of bleeding or bruising or clotting. Bleeding, bruising, clotting discussed Nutritional guidance given to avoid greens today Dose: increase today's dose to 5mg (usual 2.5mg) then 2.5mg X 5 days with none on Wed and Tue F/U INR: 4 weeks Patient verbalizes understanding of instructions given Anti-Coag Initial Assessment Social Hx Patient Tobacco Use Status: Never used Tobacco alcohol intake: never Cardiovascular Hx: HTN, Arrhythmias, Rheumatic Fever, Varicose Veins and Other Lung Disease HX: DVT/PE Musculoskeletal Hx: Other GI Hx: Hemorrhoids and Other Cancer HX: No Psych. Illness/Depression: Yes (pt states no - md hx states yes ) Coding Level of Care Code Est Patient Level 1 Diagnoses Current use of anticoagulant therapy Z79.01 Results AMB INR Fingerstick AMB INR Fingerstick 1.9 Last Edit by Beatriz Morrison RN on 11/26/24 13:21 interface delay Assessment & Plan Assessment & Plan (1) Current use of anticoagulant therapy: Code(s): Z79.01 - superintendent terminal (current) use of anticoagulants Category: Medical
--- OUTSIDE RECORDS SUMMARY | 2024-11-26 13:26 | XMS_ITS | Clinical Summary ---
Author Organization [facility] Address [address] [address] Phone Care Team Providers Care Packing Checker Name Role Phone Laura Mensah Primary Care Provider [phone] Allergies No known active allergies Medications metoprolol succinate XL (TOPROL XL) 50 MG 24 hr tablet Take 50 mg by mouth 1 (one) time each day Do not crush or chew. Active warfarin (COUMADIN) 2.5 MG tablet Take 2.5 mg by mouth 1 (one) time each day Take as directed per After Visit Summary. Active lisinopril-hydr oCHLOROthiazide (PRINZIDE,ZESTO RETIC) 20-12.5 MG per tablet Take 1 tablet [...] Office Visit [facility] [address] [address] Jay De [place] MD Hypertension [...] Office Visit [facility] [address] [phone] Jay De [place] MD [address] [address] Health Maintenance Due Date Last Done Comments Pneumococcal Vaccine: 50+ Ye ars (2 of 2 - PCV) 09/13/2017 09/13/2016 Influenza Vaccine (Season Ended) 2025 Hepatitis B Vaccine Aged Out No longe r eligible based on patient's age to complete this topic Procedures Procedure Name Priority Date/Time Associated Diagnosis Comments PHOSPHATE ( PHOSPHORUS) Routine 11/13/2024 11:44 AM EDT PROTEIN / CREATININE RATIO, URINE Routine 11/13/2024 11:44 AM EDT Hypertension from Last 3 Months Results * Urine Protein / creatinine ratio (11/13/2024 11:44 AM EDT) Protein, Ur <5 mg/dL [facility] Urine Protein/Creatin ine Ratio <0.14 <=0.20 mg/mg creat [facility] Comment:Unable to calculate due to a result outside the reportable range. Creatinine, Urine 36.0 mg/dL [facility] Urine specimen (specimen) Urine specimen obtained by clean catch procedure / Unknown 11/13/2024 11:44 AM EDT 11/13/2024 1:59 PM EDT us Jay De [place] MD LAB URINE ORDERABLES Final Resu lt Performing Organization Address [facility]/ZIP Co de Phone Number [facility] [address] [place] [address] * Phosphorus (11/13/2024 11:44 AM EDT) Phosphorus 3.1 2.5 - 4.5 mg/dL [facility] 11/13/2024 11:4 4 AM EDT 11/13/2024 1:59 PM EDT us Jay De [place] MD LAB BLOOD ORDERABLES Final Resu lt Performing Organization Address City/[facility] Co de Phone Number [facility] [address] [place] [address] from Last 3 Months Insurance [employer] Medicaid [place] [employer] [employer] [place] Care Teams Packing Checker Relationship Specialty Start Date End Date Laura Mensah [address] [place] [address] PCP - General 10/15/24
== END 2024-11-26 13:31 | disposition home or self-care (01) ==
LOC: HO.ACS 13:02
PROVIDERS: PCP Student in an Organized Health Care Education/Training Program; Visit Provider Internal Medicine Medical Oncology
DX: Z79.01 Long term (current) use of anticoagulants (principal)

== ENCOUNTER → 2024-11-26 13:02 | Outpatient (BNVA) | payer OTHER, SELFPAY | PROVIDERS: PCP Student in an Organized Health Care Education/Training Program; Visit Provider Internal Medicine Medical Oncology | DX: Z79.01 Long term (current) use of anticoagulants (principal) | CPT/HCPCS: 85610; 99211 ==

== ENCOUNTER 2024-12-25 12:57 | Outpatient (AMB) | payer OTHER, SELFPAY ==
--- NOTE | 2024-12-25 13:09 | MHC.OFFVISCO ---
Intake Intake Visit Reasons: Anticoagulation Allergies pantoprazole (From Protonix) Allergy (Severe, Verified 12/25/24 13:00) Palpitations Medication List - Last Reconciled 12/25/24 by Beatriz Morrison RN cholecalciferol (vitamin D3) 25 mcg PO DAILY docusate sodium 100 mg PO BID PRN lisinopril-hydrochlorothiazide 10-12.5 mg 1 tab PO DAILY metoprolol succinate ER (Toprol XL) 75 mg PO DAILY warfarin See Protocol 5 mg orally 2.5mg x 5 days / week; Nursing Note INR: 2.0 in therapeutic range of 2-3 Medications and supplements reviewed No changes in health, diet, medications, or supplements, Denies any signs and symptoms of bleeding or bruising or clotting. Bleeding, bruising, clotting discussed Nutritional guidance given to have a serving of foods that raise the INR. Food list reviewed. Pt will have some of the summer fruits. Dose: 2.5mg X 5 days with none on Wed and Sat. F/U INR: 4 weeks Patient verbalizes understanding of instructions given Anti-Coag Initial Assessment Social Hx Patient Tobacco Use Status: Never used Tobacco alcohol intake: never Cardiovascular Hx: HTN, Arrhythmias, Rheumatic Fever, Varicose Veins and Other Lung Disease HX: DVT/PE Musculoskeletal Hx: Other GI Hx: Hemorrhoids and Other Cancer HX: No Psych. Illness/Depression: Yes (pt states no - md hx states yes ) Coding Level of Care Code Est Patient Level 1 Diagnoses Current use of anticoagulant therapy Z79.01 Results AMB INR Fingerstick AMB INR Fingerstick 2.0 Last Edit by Beatriz Morrison RN on 12/25/24 13:08 interface delay Assessment & Plan Assessment & Plan (1) Current use of anticoagulant therapy: Code(s): Z79.01 - penitentiary (current) use of anticoagulants Category: Medical
[2024-12-25 13:36] LABS: Prothrombin Time Whole Bld POC 23.7 sec (11.1-13.5); ~PT, ~INR - Anti Coag Clinic 2.0 (0.9-1.1)
--- OUTSIDE RECORDS SUMMARY | 2024-12-25 13:43 | XMS_ITS | Clinical Summary ---
Author Organization [facility] Address [address] [phone] Phone Care Team Providers Care Product Assurance Engineer Name Role Phone Laura Mensah Primary Care Provider Allergies No known active [...] Office Visit [facility] [address] [phone] Jay De [place] MD Hypertension [...] [facility] [address] [phone] Jay De [place] MD [address] [phone] Health Maintenance Due Date Last Done Comments Pneumococcal Vaccine: 50+ Ye ars (2 of 2 - PCV) 09/13/2017 09/13/2016 Influenza Vaccine (#1) 2025 Hepatitis B Vaccine Aged Out No [...] 11:44 AM EDT) Protein, Ur <5 mg/dL [facility] Urine Protein/Creatin ine Ratio <0.14 <=0.20 mg/mg creat [facility] Comment:Unable to calculate due to a result outside the reportable range. Creatinine, Urine 36.0 mg/dL [facility] Urine specimen (specimen) Urine specimen obtained by clean catch procedure / Unknown 11/13/2024 11:44 AM EDT 11/13/2024 1:59 PM EDT us Jay De [place] MD LAB URINE ORDERABLES Final Resu lt Performing Organization Address [facility]/ZIP Co de Phone Number [facility] [address] [place] [address] * Phosphorus (11/13/2024 11:44 AM EDT) Phosphorus 3.1 2.5 - 4.5 mg/dL [facility] 11/13/2024 11:4 4 AM EDT 11/13/2024 1:59 PM EDT us Jay De [place] MD LAB BLOOD ORDERABLES Final Resu lt Performing Organization Address City/[facility] Co de Phone Number [facility] [address] [place] [address] from Last 3 Months Insurance [employer] Medicaid [place] [employer] [place] Care Teams Product Assurance Engineer Relationship Specialty Start Date End Date Laura Mensah [address] [place] [address] PCP - General 10/15/24
--- OUTSIDE RECORDS SUMMARY | 2024-12-25 13:43 | XMS_ITS | Encounter Summary ---
Author Organization [facility] Address [address] [place] [address] Care Team Providers Care Clerk Specialist Name Role Phone Laura Mensah MD Primary Care Provider [phone] Reason for Visit * Reason Onset Date Comments Requested Colonoscopy Result 11/28/2024 Encounter Details Date Type Department Care Team ([facility] Contact Info) Description 11/28/2024 Telephone Adult Medicine [address] [phone] Argelia Newby [place] Requested Colonoscopy Result Social History Tobacco Use Types Packs/Day Years Used Date Smoking Tobacco: Never Assessed Comments Unknown Sex and Gender Information Value Date Recorded Sex Assigned at Not on file Legal Sex Female 5:12 PM EST Gender Identity Not on file Sexual Orientation Not on file documented as of this encounter Progress Notes * Argelia Newby [place] - 11/28/2024 3:[address] Mensah requested Colonoscopy results from [facility]. I saw it was scanned into their system but I am unable to view the document. I sent a med rec request to [facility] at fax number [phone] Awaiting records....... documented in this encounter Plan of Treatment Upcoming Encounters Date Type Department Care Team ([facility] Contact Info) Description 02/28/2025 8:45 AM EDT Appointment Radiology Department [address] [phone] 04/04/2025 4:30 PM EST Office Visit Adult Medicine [place] [id number] [place] [address] Laura Mensah MD 444 [facility] [place] 11/26/2025 2:00 PM EDT Office Visit [address] [phone] Laura Mensah MD [address] [facility] [place], [place] documented as of this encounter Visit Diagnoses Not on filedocumented in this encounter Additional Health Concerns Assessment Noted Time PHQ-9 Depression Total Score: 0 11/24/19 25 1:52 PM EDT documented as of this encounter Care Teams Clerk Specialist Relationship Specialty Start Date End Date Laura Mensah MD 4 [facility] [place] PCP - General 08/03/23 documented as of this encounter
== END 2024-12-25 13:14 | disposition home or self-care (01) ==
LOC: HO.ACS 12:57
PROVIDERS: PCP Student in an Organized Health Care Education/Training Program; Visit Provider Internal Medicine Medical Oncology
DX: Z79.01 Long term (current) use of anticoagulants (principal)

== ENCOUNTER → 2024-12-25 12:57 | Outpatient (BNVA) | payer OTHER, SELFPAY | PROVIDERS: PCP Student in an Organized Health Care Education/Training Program; Visit Provider Internal Medicine Medical Oncology | DX: I48.20 Chronic atrial fibrillation, unspecified (principal); Z79.01 Long term (current) use of anticoagulants; Z51.81 Encounter for therapeutic drug level monitoring | CPT/HCPCS: 85610; 99211 ==

== ENCOUNTER 2025-01-22 13:00 | Outpatient (AMB) | payer OTHER, SELFPAY ==
[2025-01-22 13:10] LABS: Prothrombin Time Whole Bld POC 23.5 sec (11.1-13.5); ~PT, ~INR - Anti Coag Clinic 2.0 (0.9-1.1)
--- NOTE | 2025-01-22 13:20 | MHC.OFFVISCO ---
Intake Intake Visit Reasons: Anticoagulation Allergies pantoprazole (From Protonix) Allergy (Severe, Verified 01/22/25 13:03) Palpitations Medication List - Last Reconciled 01/22/25 by Beatriz Morrison RN cholecalciferol (vitamin D3) 25 mcg PO DAILY docusate sodium 100 mg PO BID PRN lisinopril-hydrochlorothiazide 10-12.5 mg 1 tab PO DAILY metoprolol succinate ER (Toprol XL) 75 mg PO DAILY warfarin See Protocol 5 mg orally 2.5mg x 5 days / week; Nursing Note INR: 2.0 in therapeutic range of 2-3 Medications and supplements reviewed Pt states she started amoxcacillin clav yesterday 01/21/25 for a sinus infection. Also states she forgot yesterday's dose of 2.5mg but took it today. No changes in diet, or supplements, Denies any signs and symptoms of bleeding or bruising or clotting. Bleeding, bruising, clotting discussed Nutritional guidance given Dose: Since INR's have been low, 2.0, 1.9, 2.0 and because pt forgot yesterday's dose of warfarin, will keep pt on usual dose of 2.5mg X 5 days and none on Tue and Tue. Will not make up missed dose due to the potential of antibiotics to raise the INR. F/U INR: 4 weeks Patient verbalizes understanding of instructions given Anti-Coag Initial Assessment Social Hx Patient Tobacco Use Status: Never used Tobacco alcohol intake: never Cardiovascular Hx: HTN, Arrhythmias, Rheumatic Fever, Varicose Veins and Other Lung Disease HX: DVT/PE Musculoskeletal Hx: Other GI Hx: Hemorrhoids and Other Cancer HX: No Psych. Illness/Depression: Yes (pt states no - md hx states yes ) Coding Level of Care Code Est Patient Level 1 Diagnoses Current use of anticoagulant therapy Z79.01 Results AMB INR Fingerstick AMB INR Fingerstick 2.0 Last Edit by Beatriz Morrison RN on 01/22/25 13:11 interface delay Assessment & Plan Assessment & Plan (1) Current use of anticoagulant therapy: Code(s): Z79.01 - salvage determiner (current) use of anticoagulants Category: Medical
--- OUTSIDE RECORDS SUMMARY | 2025-01-22 13:46 | XMS_ITS | Clinical Summary ---
Author Organization [facility] Address [address] [place] [phone] Phone Care Team Providers Care Bundle Person Name Role Phone Laura Mensah Primary Care Provider [phone] Allergies No known active allergies Medications metoprolol [...] Office Visit [facility] [address] [address] Jay De Leon MD 1400 [facility] [address] [place] [address] Health Maintenance Due Date Last Done [...] 11:44 AM EDT) Protein, Ur <5 mg/dL [facility] Urine Protein/Creatin ine Ratio <0.14 <=0.20 mg/mg creat [facility] Comment:Unable to calculate due to a result outside the reportable range. Creatinine, Urine 36.0 mg/dL [facility] Urine specimen (specimen) Urine specimen obtained by clean catch procedure / Unknown 11/13/2024 11:44 AM EDT 11/13/2024 1:59 PM EDT us Jay De Leon MD LAB URINE ORDERABLES Final Resu lt Performing Organization Address City/[facility]/ZIP Co de Phone Number [facility] [address] [place] [address] * Phosphorus (11/13/2024 11:44 AM EDT) Phosphorus 3.1 2.5 - 4.5 mg/dL [facility] 11/13/2024 11:4 4 AM EDT 11/13/2024 1:59 PM EDT us Jay De Leon MD LAB BLOOD ORDERABLES Final Resu lt Performing Organization Address [facility] Co de Phone Number [facility] [address] [place] [address] from Last 3 Months Insurance [employer] Care Teams Bundle Person Relationship Specialty Start Date End Date Laura Mensah [address] [place] [address] PCP - General 10/15/24
--- OUTSIDE RECORDS SUMMARY | 2025-01-22 13:46 | XMS_ITS ---
Author Name [facility] Organization Unknown Care Team Organization Name Specialty Phone Email Start Date End [facility] 01/16/2025
--- OUTSIDE RECORDS SUMMARY | 2025-01-22 13:46 | XMS_ITS | Clinical Summary ---
Author Organization [facility] [address] [place] [address] [place] [phone] Phone Care Team Providers Care Vice President Of Software Development Name Role Phone Laura Mensah MD Primary Care Provider [phone] Allergies Active Allergy Reactions Criticality Noted Date Comments Amlodipine Besylate 08/18/2022 Pantoprazole 06/10/2006 Medications cholecalciferol, vitamin D3, 350 mcg (14,000 unit) wafer Take by mouth. Active loratadine (CLARITIN) 10 mg tablet Take 1 tablet (10 mg total) by mouth 1 (one) time each day if needed for allergies. 90 each 09/05/2024 Active lisinopriL (PRINIVIL,ZESTRI L) 10 mg tablet Take 1 tablet (10 mg total) by mouth 1 (one) time each day. 90 each 1 12/13/2024 6 Active hydroCHLOROthiaz mehdi 12.5 mg tablet Take 1 tablet (12.5 mg total) by mouth 1 (one) time each day. 90 each 1 12/13/2024 6 Active warfarin (COUMADIN) 2.5 mg tablet Take 1 tablet (2.5 mg total) by mouth 1 (one) time each day with dinner. 90 tablet 1 12/13/2024 Active metoprolol succinate (TOPROL-XL) 50 mg 24 hr tablet Take 1 tablet (50 mg total) by mouth 1 (one) time each day. 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 08/08/2023 Sleep disorder 08/08/2023 Vitamin D deficiency 08/08/2023 Encounters Date Type Department Care Team Description 12/13/2024 3:30 PM EDT Office Visit Adult [address] [phone] Laura Mensah MD Primary hypertension (Primary Dx); Atrial fibrillation, unspecified type ([facility] V24, [facility] V28) 11/28/2024 Telephone Adult [address] [phone] Argelia Newby [place] 11/23/2024 2:00 PM EDT Office Visit [address] [phone] Laura Mensah MD Routine general medical examination at a health care facility (Primary Dx); Primary hypertension; Atrial fibrillation, unspecified type ([facility] V24, [facility] V28); Family history of parotid cancer from Last 3 Months Social History Tobacco Use Types Packs/Day Years Used Date Smoking Tobacco: Never Assessed Comments Unknown Sex and Gender Information Value Date Recorded Sex Assigned at Not on file Legal Sex Female 5:12 PM EST Gender Identity Not on file Sexual Orientation Not on file Last Filed Vital Signs Vital Sign Reading Time Taken Comments Blood Pressure 144/70 12/13/2024 2:46 PM EDT Pulse 81 12/13/2024 2:46 PM EDT Temperature 36.4 C (97.6 F) 12/13/2024 2:46 PM EDT Respiratory Rate 16 11/23/2024 1:48 PM EDT Oxygen Saturation 98% 09/24/2024 2:08 PM EDT Inhaled Oxygen Concentration - - Weight 61.7 kg (136 lb) 12/13/2024 2:46 PM EDT Height 157.5 cm (5' 2 ) 12/13/2024 2:46 PM EDT Body Mass Index 24.87 12/13/2024 2:46 PM EDT Plan of Treatment Upcoming Encounters Date Type Department Care Team (Late st Contact Info) Description 02/28/2025 8:45 AM EDT Appointment Radiology Department - [address] [phone] 04/04/2025 4:30 PM EST Office Visit Adult Medicine [address] [phone] Laura Mensah MD [address] [place], [place] 11/26/2025 2:00 PM EDT Office Visit Adult [address] [phone] Laura Mensah MD 444 [place], [place] Health Maintenance Due Date Last Done Comments Influenza Vaccine (#1) 2025 COVID-19 Vaccine (#1) 05/30/2025 [place]po [place] from 12/19/1950 (Patient Refused) Hepatitis A Vaccines (1 of 2 - Risk 2-dose series) 05/30/2025 Postponed from (Patient Refused) Hepatitis B Vaccines (1 of 3 - Risk 3-dose series) 05/30/2025 Postponed from (Patient Refused) Hepatitis C Screening 05/30/2025 [place]po [place] from 04/28/2022 (Patient Refused) Pneumococcal Vaccine: 50+ Years (2 of 2 - PCV) 05/30/2025 09/13/2016 Postponed from 08/28 (Patient Refused) Zoster Vaccines (1 of 2) 05/30/2025 Pos tponed from 1965 (Patient Refused) RSV Immunization Adult Patients (1 - 1-dose 75+ series) 10/28/2025 Postponed from 12/18 (Patient Refused) Hypertension/CHF/CAD Annual BMP Blood Test 11/13/2025 11/13/2024, 02/29/2024 Falls Risk Assessment 11/23/2025 11/23/2024 Medicare Annual Wellness Visit 11/23/2025 11/23/2024 Social Influencers of Health Screening 11/23/2025 11/23/2024 DTaP,Tdap,and Td Vaccines (3 - Td or Tdap) 02/13/2029 02/13/2019, 02/03/2007 Cholesterol Screening (Lipid Panel) 11/13/2029 11/13/2024, 02/29/2024 Osteoporosis Screening (Bone Density Screening) 03/31/2031 03/31/2021, 03/29/2019 Depression Screening Completed 11/23/2024 HIB Vaccines Aged Out No longer eligi [...] Procedure Name Priority Date/Time Associated Diagnosis Comments BILIRUBIN DUPLICATE PROCEDURE TO ORDER Routine 11/13/2024 11:44 AM EDT Liver hemangioma PHOSPHORUS Routine 11/13/2024 11:44 AM EDT Chronic kidney disease LIPID PANEL WITH REFLEX TO DIRECT LDL Routine 11/13/2024 11:44 AM EDT Hyperlipidemia, unspecified hyperlipidemia type PROTEIN AND CREATININE WITH RATIO, URINE Routine 11/13/2024 11:44 AM EDT Chronic kidney disease COMPREHENSIVE METABOLIC PANEL Routine 11/13/2024 11:44 AM EDT Primary hypertension [facility] DEXA AXIAL SKELETON Routine 03/31/2021 11:16 AM EDT Encounter for screening for osteoporosis from Last 3 Months or Most Recently Relevant to Health Maintenance Results * Bilirubin duplicate procedure to order (11/13/2024 11:44 AM EDT) Total Bilirubin 0.7 0.0 - 1.4 mg/dL LAB CHEMISTRY METHOD 11/13/2024 3:43 PM EDT [facility] Bilirubin, Direct 0.2 0.0 - 0.3 mg/dL LAB CHEMISTRY METHOD 11/13/2024 3:43 PM EDT [facility] Bilirubin, Indirect 0.5 0.0 - 1.1 mg/dL LAB CHEMISTRY METHOD 11/13/2024 3:43 PM EDT [facility] Blood Venous blood specimen / Unknown Venipuncture / Unknown 11/13/2024 11:44 AM EDT 11/13/2024 11:44 AM EDT us Laura Mensah MD LAB BLOOD ORDERABLES Final Result [facility] [address] [place] [address], [place] [phone] * (ABNORMAL) Lipid panel with reflex to direct LDL (11/13/2024 11:44 AM EDT) Cholesterol 169 0 - 200 mg/dL LAB CHEMISTRY METHOD 11/13/2024 3:45 PM EDT [facility] Triglycerides 171(H) 0 - 150 mg/dL LAB CHEMISTRY METHOD 11/13/2024 3:45 PM EDT [facility] HDL 50 >=40 mg/dL LAB CHEMISTRY METHOD 11/13/2024 3:45 PM EDT [facility] LDL Calculated 85 0 - 100 mg/dL LAB CHEMISTRY METHOD 11/13/2024 3:45 PM EDT [facility] VLDL Cholesterol Tsar 34.2 mg/dL LAB CHEMISTRY METHOD 11/13/2024 3:45 PM EDT [facility] Non HDL Chol. (LDL+VLDL) 119 <145 mg/dL LAB CHEMISTRY METHOD 11/13/2024 3:45 PM EDT [facility] Chol/HDL Ratio 3.4 0.0 - 4.4 LAB CHEMISTRY METHOD 11/13/2024 3:45 PM EDT [facility] Blood Venous blood specimen / Unknown Venipuncture / Unknown 11/13/2024 11:44 AM EDT 11/13/2024 11:44 AM EDT Laura Mensah MD LAB BLOOD ORDERABLES Final Result [facility] [address] [place] [address], [place] [phone] * Protein and creatinine with ratio, urine (11/13/2024 11:44 AM EDT) Protein, Urine <5 mg/dL LAB CHEMISTRY METHOD 11/13/2024 4:15 PM EDT [facility] Prot/Creat, Ur <0.14 <=0.20 mg/mg creat LAB CHEMISTRY METHOD 11/13/2024 4:15 PM EDT [facility] Comment:Unable to calculate due to a result outside the reportable range. Creatinine, Urine 36.0 mg/dL LAB CHEMISTRY METHOD 11/13/2024 4:15 PM EDT [facility] Urine Urine specimen obtained by clean catch procedure / Unknown Non-blood Collection / Unknown 11/13/2024 11:44 AM EDT 11/13/2024 11:44 AM EDT Jay De Leon MD LAB URINE ORDERABLES Final Resu lt Performing Organization Address [facility]/ZIP Co de Phone Number [facility] [address] [place] [address], * Phosphorus (11/13/2024 11:44 AM EDT) Phosphorus 3.1 2.5 - 4.5 mg/dL LAB CHEMISTRY METHOD 11/13/2024 3:43 PM EDT [facility] Blood Venous blood specimen / Unknown Venipuncture / Unknown 11/13/2024 11:44 AM EDT 11/13/2024 11:44 AM EDT Jay De Leon MD LAB BLOOD ORDERABLES Final Resu lt Performing Organization Address [facility]/ZIP Co de Phone Number [facility] [address] [place] [address], [place] [phone] * (ABNORMAL) Comprehensive metabolic panel (11/13/2024 11:44 AM EDT) Sodium 137 133 - 145 mmol/L LAB CHEMISTRY METHOD 11/13/2024 3:45 PM EDT [facility] Potassium 3.7 3.5 - 5.5 mmol/L LAB CHEMISTRY METHOD 11/13/2024 3:45 PM [facility] Chloride 100 96 - 110 mmol/L LAB CHEMISTRY METHOD 11/13/2024 3:45 PM T [facility] CO2 33(H) 21 - 32 mmol/L LAB CHEMISTRY METHOD 11/13/2024 3:45 PM EDT [facility] Anion Gap 4 3 - 11 LAB CHEMISTRY METHOD 11/13/2024 3:45 PM [facility] Glucose 84 70 - 100 mg/dL LAB CHEMISTRY METHOD 11/13/2024 3:45 PM [facility] BUN 18 5 - 25 mg/dL LAB CHEMISTRY METHOD 11/13/2024 3:45 PM [facility] Creatinine 0.71 0.50 - 1.10 mg/dL LAB CHEMISTRY METHOD 11/13/2024 3:45 PM [facility] eGFR 88 >=60 mL/min/1. 73m2 LAB CHEMISTRY METHOD 11/13/2024 3:45 PM [facility] Comment:Calculation based on the Chronic Kidney Disease Epidemiology Collaboration (CKD-EPI) equation refit without adjustment for race. BUN/Creatinine Ratio 25.4 LAB CHEMISTRY METHOD 11/13/2024 3:45 PM [facility] Calcium 9.2 8.5 - 10.5 mg/dL LAB CHEMISTRY METHOD 11/13/2024 3:45 PM [facility] AST (SGOT) 17 10 - 42 unit/L LAB CHEMISTRY METHOD 11/13/2024 3:45 PM [facility] ALT (SGPT) 20 10 - 60 unit/L LAB CHEMISTRY METHOD 11/13/2024 3:45 PM [facility] Alkaline Phosphatase 78 42 - 121 unit/L LAB CHEMISTRY METHOD 11/13/2024 3:45 PM [facility] Total Protein 6.5 6.0 - 8.0 g/dL LAB CHEMISTRY METHOD 11/13/2024 3:45 PM [facility] Albumin 4.0 3.2 - 5.0 g/dL LAB CHEMISTRY METHOD 11/13/2024 3:45 PM [facility] Total Bilirubin 0.7 0.0 - 1.4 mg/dL LAB CHEMISTRY METHOD 11/13/2024 3:45 PM [facility] Blood Venous blood specimen / Unknown Venipuncture / Unknown 11/13/2024 11:44 AM EDT 11/13/2024 11:44 AM EDT us Laura Mensah MD LAB BLOOD ORDERABLES Final Result [facility] [address] [place] [address], * [facility] DEXA AXIAL SKELETON (03/31/2021 11:16 AM EDT) Anatomical Region Laterality Modality Mammography 03/31/2021 10:4 0 AM EDT Narrative 03/31/2021 11:16 AM EDT [facility] Diagnostic Imaging Department [address] [place] [address] Patient: JONAS LYNCH /Age/Sex: 1945 - 75 - F Unit#: [id number] Location/Status: SPDIMA/REG CLI [facility]em[facility] [place] Ordering Physician: MANI DONOHUE MD [place] Dexa Axial Skeleton - 03/31/211105 HISTORY: The patient is a 75-year-old postmenopausal female with clinical concern for metabolic bone disease. FINDINGS: Dual [...] 97% of that of age matched controls. This yields a T-score of -2.1 and a Z-score of -0.2 which is diagnostic of osteopenia. IMPRESSION: 1. Osteoporosis. There has been a decrease of 0.8% in bone mineral density in the lumbar spine since the prior examination of 03/29/2019. There has been an increase of 2.0% in bone mineral density in the right femur and an increase of 0.9% in bone mineral density in the left femur. 2. FRAX analysis yields a 10-year probability of major osteoporotic fracture of 13.4% and a 10-year probability of hip fracture of 3.5%. Code 69046 Dictating Physician: MARCELA EVANS MD Electronically Signed by: MARCELA EVANS MD Dic Date/Time: 03/31/21 1115 Sign date/Time: 03/31/21 1116 Procedure Note Marcela Evans MD - 05/19/2022 [facility] Diagnostic Imaging Department [address] [place] [address] Patient: YUNIERJONAS./Age/Sex: 1945 - 75 - F Unit#: [id number] Location/Status: [facility] Mnemonic/[facility] [place] Ordering Physician: MANI DONOHUE MD [place] Dexa Axial Skeleton - 03/31/213 HISTORY: The patient is a 75-year-old postmenopausal [...] density of the femurs bilaterally is 0.748 gm/np2uapuj is 74% of that of young normals [...] probability of hip fracture of 3.5%. Code 39453 Dictating Physician: MARCELA EVANS MD Electronically Signed by: MARCELA EVANS MD Dic Date/Time: 03/31/21 1115 Sign date/Time: 03/31/21 1116 Mani Donohue MD IMG BI PROCEDURES Final Result from Last 3 Months or Most Recently Relevant to Health Maintenance Insurance MEDICA[place] [employer] [employer] Care Teams Vice President Of Software Development Relationship Specialty Start Date End Date Laura Mensah MD [address] [place] [address] PCP - General 08/03/23
== END 2025-01-22 13:29 | disposition home or self-care (01) ==
LOC: HO.ACS 13:00
PROVIDERS: PCP Student in an Organized Health Care Education/Training Program; Visit Provider Internal Medicine Medical Oncology
DX: Z79.01 Long term (current) use of anticoagulants (principal)

== ENCOUNTER → 2025-01-22 13:00 | Outpatient (BNVA) | payer OTHER, SELFPAY | PROVIDERS: PCP Student in an Organized Health Care Education/Training Program; Visit Provider Internal Medicine Medical Oncology | DX: I48.20 Chronic atrial fibrillation, unspecified (principal); Z79.01 Long term (current) use of anticoagulants; Z51.81 Encounter for therapeutic drug level monitoring | CPT/HCPCS: 85610; 99211 ==

== ENCOUNTER 2025-02-19 13:04 | Outpatient (AMB) | payer OTHER, SELFPAY ==
[2025-02-19 13:10] LABS: Prothrombin Time Whole Bld POC 34.8 sec (11.1-13.5); ~PT, ~INR - Anti Coag Clinic 2.9 (0.9-1.1)
--- NOTE | 2025-02-19 13:15 | MHC.OFFVISCO ---
Intake Intake Visit Reasons: Anticoagulation Allergies pantoprazole (From Protonix) Allergy (Severe, Verified 02/19/25 13:05) Palpitations Medication List - Last Reconciled 02/19/25 by Beatriz Morrison RN cholecalciferol (vitamin D3) 25 mcg PO DAILY docusate sodium 100 mg PO BID PRN lisinopril-hydrochlorothiazide 10-12.5 mg 1 tab PO DAILY metoprolol succinate ER (Toprol XL) 75 mg PO DAILY warfarin See Protocol 5 mg orally 2.5mg x 5 days / week; Nursing Note INR: 2.9 in therapeutic range of 2-3 Medications and supplements reviewed No changes in health, diet, medications, or supplements, Denies any signs and symptoms of bleeding or bruising or clotting. Bleeding, bruising, clotting discussed Nutritional guidance given to have a serving of greens today Dose: 2.5mg X 5 days and 0mg X 2 days (Tue/Tue) F/U INR: 4 weeks Patient verbalizes understanding of instructions given Anti-Coag Initial Assessment Social Hx Patient Tobacco Use Status: Never used Tobacco alcohol intake: never Cardiovascular Hx: HTN, Arrhythmias, Rheumatic Fever, Varicose Veins and Other Lung Disease HX: DVT/PE Musculoskeletal Hx: Other GI Hx: Hemorrhoids and Other Cancer HX: No Psych. Illness/Depression: Yes (pt states no - md hx states yes ) Coding Level of Care Code Est Patient Level 1 Diagnoses Current use of anticoagulant therapy Z79.01 Results AMB INR Fingerstick AMB INR Fingerstick 2.9 Last Edit by Beatriz Morrison RN on 02/19/25 13:14 interface delay Assessment & Plan Assessment & Plan (1) Current use of anticoagulant therapy: Code(s): Z79.01 - skilled nursing (current) use of anticoagulants Category: Medical
--- OUTSIDE RECORDS SUMMARY | 2025-02-19 15:58 | XMS_ITS | Clinical Summary ---
Author Organization [facility] [address] [place] [address] [place] [phone] Phone Care Team Providers Care Prosthodontist/Owner Name Role Phone Laura Mensah MD Primary Care Provider [phone] Allergies Active Allergy Reactions Criticality Noted Date [...] Gastroesophageal reflux disease 08/08/2023 Glossitis 08/08/2023 Myocardiopathy ([facility] V24, [facility]/HCC V28) 2023 Osteoporosis 08/08/2023 Paroxysmal atrial fibrillation (CMS/HCC V24, CMS /HCC V28) 08/08/2023 Primary hypertension 08/08/2023 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 08/08/2023 Sleep disorder 08/08/2023 Vitamin D deficiency 08/08/2023 Encounters Date Type Department Care Team Description 12/13/2024 3:30 PM EDT Office Visit Adult [address] [phone] Laura Mensah MD Primary hypertension (Primary Dx); Atrial fibrillation, unspecified type ([facility] V24, [facility] V28) 11/28/2024 Telephone Adult [address] [phone] [place] 11/23/2024 2:00 PM EDT Office Visit [address] [phone] Laura Mensah MD Routine general medical examination at a health care facility (Primary Dx); Primary hypertension; Atrial fibrillation, unspecified type ([facility] V24, [facility] V28); Family history of parotid cancer from [...] 8:45 AM EDT Appointment Radiology Department - [address] [phone] 04/04/2025 4:30 PM EST Office Visit Adult Medicine [address] [phone] Laura Mesnah MD [address] [place], [place] 11/26/2025 2:00 PM EDT Office Visit Adult [address] [phone] Laura Mensah MD [address] [place], [place] Health Maintenance Due Date Last Done [...] Procedure Name Priority Date/Time Associated Diagnosis Comments COMPREHENSIVE METABOLIC PANEL Routine 11/13/2024 11:44 AM EDT Primary hypertension LIPID PANEL WITH REFLEX TO DIRECT LDL Routine 11/13/2024 11:44 AM EDT Hyperlipidemia, unspecified hyperlipidemia type QUINTON DEXA AXIAL SKELETON Routine 03/31/2021 11:16 AM EDT Encounter for screening for osteoporosis from Last 3 Months or Most Recently Relevant to Health Maintenance Results * (ABNORMAL) Lipid panel with reflex to direct LDL (11/13/2024 11:44 AM EDT) Cholesterol 169 0 - 200 mg/dL LAB CHEMISTRY METHOD 11/13/2024 3:45 PM EDT [facility] Triglycerides 171(H) 0 - 150 mg/dL LAB CHEMISTRY METHOD 11/13/2024 3:45 PM EDT [facility] HDL 50 >=40 mg/dL LAB CHEMISTRY METHOD 11/13/2024 3:45 PM EDT [facility] LDL Calculated 85 0 - 100 mg/dL LAB CHEMISTRY METHOD 11/13/2024 3:45 PM EDT [facility] VLDL Cholesterol Star 34.2 mg/dL LAB CHEMISTRY METHOD 11/13/2024 3:45 PM EDT [facility] Non HDL Chol. (LDL+VLDL) 119 <145 mg/dL LAB CHEMISTRY METHOD 11/13/2024 3:45 PM EDT [facility] Chol/HDL Ratio 3.4 0.0 - 4.4 LAB CHEMISTRY METHOD 11/13/2024 3:45 PM EDT [facility] Blood Venous blood specimen / Unknown Venipuncture / Unknown 11/13/2024 11:44 AM EDT 11/13/2024 11:44 AM EDT us Laura Mensah MD LAB BLOOD ORDERABLES Final Result [facility] [address] [place] [address], * (ABNORMAL) Comprehensive metabolic panel (11/13/2024 11:44 AM EDT) Pathologist [facility] Sodium 137 133 - 145 mmol/L LAB CHEMISTRY METHOD 11/13/2024 3:45 PM EDT [facility] Potassium 3.7 3.5 - 5.5 mmol/L LAB CHEMISTRY METHOD 11/13/2024 3:45 PM EDT [facility] Chloride 100 96 - 110 mmol/L LAB CHEMISTRY METHOD 11/13/2024 3:[address] [facility] CO2 33(H) 21 - 32 mmol/L LAB CHEMISTRY METHOD 11/13/2024 3:[address] [facility] Anion Gap 4 3 - 11 LAB CHEMISTRY METHOD 11/13/2024 3:[address] [facility] Glucose 84 70 - 100 mg/dL LAB CHEMISTRY METHOD 11/13/2024 3:[address] [facility] BUN 18 5 - 25 mg/dL LAB CHEMISTRY METHOD 11/13/2024 3:[address] [facility] Creatinine 0.71 0.50 - 1.10 mg/dL LAB CHEMISTRY METHOD 11/13/2024 3:[address] [facility] eGFR 88 >=60 mL/min/1. 73m2 LAB CHEMISTRY METHOD 11/13/2024 3:[address] [facility] Comment:Calculation based on the Chronic Kidney Disease Epidemiology Collaboration (CKD-EPI) equation refit without adjustment for race. BUN/Creatinine Ratio 25.4 LAB CHEMISTRY METHOD 11/13/2024 3:[address] [facility] Calcium 9.2 8.5 - 10.5 mg/dL LAB CHEMISTRY METHOD 11/13/2024 3:[address] [facility] AST (SGOT) 17 10 - 42 unit/L LAB CHEMISTRY METHOD 11/13/2024 3:[address] [facility] ALT (SGPT) 20 10 - 60 unit/L LAB CHEMISTRY METHOD 11/13/2024 3:[address] [facility] Alkaline Phosphatase 78 42 - 121 unit/L LAB CHEMISTRY METHOD 11/13/2024 3:[address] [facility] Total Protein 6.5 6.0 - 8.0 g/dL LAB CHEMISTRY METHOD 11/13/2024 3:45 PM EDT [facility] Albumin 4.0 3.2 - 5.0 g/dL LAB CHEMISTRY METHOD 11/13/2024 3:45 PM EDT [facility] Total Bilirubin 0.7 0.0 - 1.4 mg/dL LAB CHEMISTRY METHOD 11/13/2024 3:45 PM EDT [facility] Blood Venous blood specimen / Unknown Venipuncture / Unknown 11/13/2024 11:44 AM EDT 11/13/2024 11:44 AM EDT us Laura Mensah MD LAB BLOOD ORDERABLES Final Result [facility] ([facility] [address] [place] [address], * QUINTON DEXA AXIAL SKELETON (03/31/2021 11:16 AM EDT) Anatomical Region Laterality Modality Mammography 03/31/2021 10:4 0 AM EDT Narrative 03/31/2021 11:16 AM EDT [facility] Diagnostic Imaging Department [address] [place] [address] Patient: JONAS LYNCHO.B./Age/Sex: 1945 - 75 - F Unit#: [id number] Location/Status: SPDIMAM/REG CLI Mnemonic/Ordering Site: MAMDEXAAX/SPMAM Ordering [...] probability of hip fracture of 3.5%. Code 40389 Dictating Physician: MARCELA EVANS MD Electronically Signed by: MARCELA EVANS MD Dic Date/Time: 03/31/211114 Sign date/Time: 03/31/21 111 Procedure Note Marcela Evans MD - 05/19/2022 [facility] Diagnostic Imaging Department [address] [place] [address] Patient: JONAS LYNCH/Age/Sex: 1945 - 75 - F Unit#: [id number] Location/Status: SPDIMAM/REG CLI Mnemonic[facility] Ordering Physician: MANI DONOHUE MD [place] [...] density of the femurs bilaterally is 0.748 gm/xy8iecch is 74% of that of young normals [...] probability of hip fracture of 3.5%. Code 58259 Dictating Physician: MARCELA EVANS MD Electronically Signed by: MARCELA EVANS MD Dic Date/Time: 03/31/21 111 Sign date/Time: 03/31/21 111 Mani Donohue MD IM BI PROCEDURES Final Result from Last 3 Months or Most Recently Relevant to Health Maintenance Insurance [place] [employer] [employer] Care Teams Prosthodontist/Owner Relationship Specialty Start Date End Date Laura Mensah MD [address] [place] [address] PCP - General 08/03/23
--- OUTSIDE RECORDS SUMMARY | 2025-02-19 15:58 | XMS_ITS | Clinical Summary ---
Author Organization [facility] Address [address] [place] [phone] Phone Care Team Providers Care Laser Printing Operator Name Role Phone Laura Mensah Primary Care Provider [phone] Allergies No known active allergies Medications metoprolol [...] Office Visit [facility] [address] [facility] [address] [place] [phone] Jay De Leon MD [address] [facility] [address] [place] [phone] Health Maintenance Due Date Last Done Comments Pneumococcal Vaccine: 50+ Ye ars (2 of 2 - PCV) 09/13/2017 09/13/2016 Influenza Vaccine (#1) 2025 Hepatitis B Vaccine Aged Out No longe r eligible based on patient's age to complete this topic Insurance [employer] Care Teams Laser Printing Operator Relationship Specialty Start Date End Date Laura Mensah [address] [place] [address] PCP - General 10/15/24
== END 2025-02-19 13:20 | disposition home or self-care (01) ==
LOC: HO.ACS 13:04
PROVIDERS: PCP Student in an Organized Health Care Education/Training Program; Visit Provider Internal Medicine Medical Oncology
DX: Z79.01 Long term (current) use of anticoagulants (principal)

== ENCOUNTER → 2025-02-19 13:04 | Outpatient (BNVA) | payer OTHER, SELFPAY | PROVIDERS: PCP Student in an Organized Health Care Education/Training Program; Visit Provider Internal Medicine Medical Oncology | DX: I48.20 Chronic atrial fibrillation, unspecified (principal); Z79.01 Long term (current) use of anticoagulants; Z51.81 Encounter for therapeutic drug level monitoring | CPT/HCPCS: 85610; 99211 ==

== ENCOUNTER 2025-03-19 13:01 | Outpatient (AMB) | payer OTHER, SELFPAY ==
[2025-03-19 13:08] LABS: Prothrombin Time Whole Bld POC 28.1 sec (11.1-13.5); ~PT, ~INR - Anti Coag Clinic 2.3 (0.9-1.1)
--- NOTE | 2025-03-19 13:10 | MHC.OFFVISCO ---
Intake Intake Visit Reasons: Anticoagulation Allergies pantoprazole (From Protonix) Allergy (Severe, Verified 03/19/25 13:02) Palpitations Medication List - Last Reconciled 03/19/25 by Beatriz Morrison, RN cholecalciferol (vitamin D3) 25 mcg PO DAILY docusate sodium 100 mg PO BID PRN lisinopril-hydrochlorothiazide 10-12.5 mg 1 tab PO DAILY metoprolol succinate ER (Toprol XL) 75 mg PO DAILY warfarin See Protocol 5 mg orally 2.5mg x 5 days / week; Nursing Note INR: 2.3 in therapeutic range of 2-3 Medications and supplements reviewed No changes in health, diet, medications, or supplements, Denies any signs and symptoms of bleeding or bruising or clotting. Bleeding, bruising, clotting discussed Nutritional guidance given Dose: 2.5mg X 5 days and no dose X 2 days (Wed & Sat) F/U INR: 4 weeks Patient verbalizes understanding of instructions given Anti-Coag Initial Assessment Social Hx Patient Tobacco Use Status: Never used Tobacco alcohol intake: never Cardiovascular Hx: HTN, Arrhythmias, Rheumatic Fever, Varicose Veins and Other Lung Disease HX: DVT/PE Musculoskeletal Hx: Other GI Hx: Hemorrhoids and Other Cancer HX: No Psych. Illness/Depression: Yes (pt states no - md hx states yes ) Coding Level of Care Code Est Patient Level 1 Diagnoses Current use of anticoagulant therapy Z79.01 Assessment & Plan Assessment & Plan (1) Current use of anticoagulant therapy: Code(s): Z79.01 - assisted (current) use of anticoagulants Category: Medical
--- OUTSIDE RECORDS SUMMARY | 2025-03-19 16:42 | XMS_ITS | Clinical Summary ---
Author Organization [facility] Address [address] [place] [phone] Phone Care Team Providers Care Customer Logistics Manager Name Role Phone Laura Mensah Primary Care Provider [phone] Allergies No known active allergies Medications metoprolol [...] Office Visit [facility] [address] [facility] [address] [place] [phone] Jay De Leon MD [address] [facility] [address] [place] [phone] Health Maintenance Due Date Last Done Comments Pneumococcal Vaccine: 50+ Ye ars (2 of 2 - PCV) 09/13/2017 09/13/2016 Influenza Vaccine (#1) 2025 Hepatitis B Vaccine Aged Out No longe r eligible based on patient's age to complete this topic Insurance [employer] [place] Care Teams Customer Logistics Manager Relationship Specialty Start Date End Date Laura Mensah [address] [place] [address] PCP - General 10/15/24
== END 2025-03-19 13:15 | disposition home or self-care (01) ==
LOC: HO.ACS 13:01
PROVIDERS: PCP Student in an Organized Health Care Education/Training Program; Visit Provider Internal Medicine Medical Oncology
DX: Z79.01 Long term (current) use of anticoagulants (principal)

== ENCOUNTER → 2025-03-19 13:01 | Outpatient (BNVA) | payer OTHER, SELFPAY | PROVIDERS: PCP Student in an Organized Health Care Education/Training Program; Visit Provider Internal Medicine Medical Oncology | DX: Z79.01 Long term (current) use of anticoagulants (principal) | CPT/HCPCS: 85610; 99211 ==

== ENCOUNTER 2025-04-16 13:03 | Outpatient (AMB) | payer OTHER, SELFPAY ==
[2025-04-16 13:12] LABS: Prothrombin Time Whole Bld POC 29.7 sec (11.1-13.5); ~PT, ~INR - Anti Coag Clinic 2.5 (0.9-1.1)
--- NOTE | 2025-04-16 13:19 | MHC.OFFVISCO ---
Intake Intake Visit Reasons: Anticoagulation Allergies pantoprazole (From Protonix) Allergy (Severe, Verified 04/16/25 13:06) Palpitations Medication List - Last Reconciled 04/16/25 by Archana Marvin RN cholecalciferol (vitamin D3) 25 mcg PO DAILY docusate sodium 100 mg PO BID PRN hydrochlorothiazide 12.5 mg PO DAILY lisinopril-hydrochlorothiazide 10-12.5 mg 1 tab PO DAILY metoprolol succinate ER (Toprol XL) 75 mg PO DAILY warfarin See Protocol 5 mg orally 2.5mg x 5 days / week; Nursing Note INR: 2.5 in therapeutic range Medications and supplements reviewed No changes in health, diet, medications, or supplements, Denies any signs and symptoms of bleeding or bruising or clotting. Bleeding, bruising, clotting discussed Nutritional guidance given Dose: 2.5MG X 5 DAYS/ WEEK HOLDS X 2 DAYS F/U INR: 1 MONTH Patient verbalizes understanding of instructions given Anti-Coag Initial Assessment Social Hx Patient Tobacco Use Status: Never used Tobacco alcohol intake: never Cardiovascular Hx: HTN, Arrhythmias, Rheumatic Fever, Varicose Veins and Other Lung Disease HX: DVT/PE Musculoskeletal Hx: Other GI Hx: Hemorrhoids and Other Cancer HX: No Psych. Illness/Depression: Yes (pt states no - md hx states yes ) Coding Level of Care Code Est Patient Level 1 Diagnoses Current use of anticoagulant therapy Z79.01 Results AMB INR Fingerstick AMB INR Fingerstick 2.5 Last Edit by Archana Marvin RN on 04/16/25 13:14 MANUAL ENTRY Assessment & Plan Assessment & Plan (1) Current use of anticoagulant therapy: Code(s): Z79.01 - alf (current) use of anticoagulants Category: Medical
--- OUTSIDE RECORDS SUMMARY | 2025-04-17 04:35 | XMS_ITS | Clinical Summary ---
Author Organization [facility] Address [address] [place] [phone] Phone Care Team Providers Care Rn Tele Name Role Phone Laura Mensah Primary Care [...] Office Visit [facility] [address] [facility] [address] [place] [phone] Jay De Leon MD [address] [facility] [address] [place] [phone] Health Maintenance Due Date Last Done Comments Pneumococcal Vaccine: 50+ Ye ars (2 of 2 - PCV) 09/13/2017 09/13/2016 Influenza Vaccine (#1) 2025 Hepatitis B Vaccine Aged Out No longe r eligible based on patient's age to complete this topic Insurance [employer] [place] [employer] Care Teams Rn Tele Relationship Specialty Start Date End Date Laura Mensah [address] [place] [address] PCP - General 10/15/24
--- OUTSIDE RECORDS SUMMARY | 2025-04-17 04:35 | XMS_ITS | Encounter Summary ---
Author Organization [facility] Address [address] [place] [phone] Care Team Providers Care Senior Advisor Name Role Phone Laura Mensah MD Primary Care Provider Encounter Details Date Type Department Care Team (Late Contact Info) Description 03/26/2025 Results Follow-Up Adult Medicine [address] [phone] Laura Mensah MD [address] [place] [address] Social History Tobacco Use Types Packs/Day Years Used Date Smoking Tobacco: Never Assessed Comments Unknown Sex and Gender Information Value Date Recorded Sex Assigned at Not on file Legal Sex Female 5:12 PM EST Gender Identity Not on file Sexual Orientation Not on file documented as of this encounter Plan of Treatment Upcoming Encounters Date Type Department Care Team (Late Contact Info) Description 11/26/2025 2:00 PM EDT Office Visit Adult Medicine [address] [phone] Laura Mensah MD [address] [place] [address] documented as of this encounter Visit Diagnoses Not on filedocumented in this encounter Additional Health Concerns Assessment Noted Time PHQ-9 Depression Total Score: 0 11/24/19 25 1:52 PM EDT documented as of this encounter Care Teams Senior Advisor Relationship Specialty Start Date End Date Laura Mensah MD [address] [place] [address] PCP - General 08/03/23 documented as of this encounter
--- OUTSIDE RECORDS SUMMARY | 2025-04-17 04:35 | XMS_ITS | Encounter Summary ---
Author Organization [facility] Address [address] [place] [address] Care Team Providers Care Boat Rigger Name Role Phone Laura Mensah MD Primary Care Provider [phone] Reason for Referral * Imaging (Routine) - Pending Review Specialty Diagnoses / Procedures Referred By Pedro t Referred To Contact Radiology Diagnoses Hemangioma of spleen Procedures US Abdomen Complete Laura Mensah MD [address] [place] [address] Phone: tel: fax: [address] Phone: tel: Referral ID Status Reason Start Date Expiration Date V isits Requested Visits Authorized [id number] Pending Review 03/01/2025 03/01/2026 1 1 Encounter Details Date Type Department Care Team (Late st Contact Info) Description 03/01/2025 Results Follow-Up Adult Medicine [address] [phone] Laura Mensah MD [address] [place] [address] Social History Tobacco Use Types Packs/Day Years [...] Care Team (Late st Contact Info) Description 11/26/2025 2:00 PM EDT Office Visit Adult Medicine [facility] [address] [place] [phone] Laura Mensah MD [address] [place] [address] Scheduled Orders Name Type Priority Associated Diagnoses Orde r Schedule US Abdomen Complete Imaging Routine Hemangioma of spleen Expected: 02/03/2026, Expires: 03/01/2026 documented as of this encounter Visit Diagnoses Diagnosis Hemangioma of spleen- Primary Hemangioma of other sites documented in this encounter Additional Health Concerns Assessment Noted Time PHQ-9 Depression Total Score: 0 11/24/19 25 1:52 PM EDT documented as of this encounter Care Teams Boat Rigger Relationship Specialty Start Date End Date Laura Mensah MD [address] [facility] [place] [address] PCP - General 08/03/23 documented as of this encounter
--- OUTSIDE RECORDS SUMMARY | 2025-04-17 04:36 | XMS_ITS | Clinical Summary ---
Author Organization [facility] [address] [place] [address] [place] [phone] Phone Care Team Providers Care Distance Learning Administrator Name Role Phone Laura Mensah MD Primary Care Provider [phone] Allergies Active Allergy Reactions Criticality Noted Date Comments Amlodipine Besylate 08/18/2022 Pantoprazole 06/10/2006 Medications cholecalcifero l, vitamin D3, 350 mcg (14,000 unit) wafer Take by mouth. Active loratadine (CLARITIN) 10 mg tablet Take 1 tablet (10 mg total) by mouth 1 (one) time each day if needed for allergies. 90 each 09/06/19 25 Active lisinopriL (PRINIVIL,ZEST RIL) 10 mg tablet Take 1 tablet (10 mg total) by mouth 1 (one) time each day. 90 each 1 12/14/19 25 026 Active hydroCHLOROthi azide 12.5 mg tablet Take 1 tablet (12.5 mg total) by mouth 1 (one) time each day. 90 each 1 12/14/19 25 026 Active metoprolol succinate (TOPROL-XL) 50 mg 24 hr tablet Take 1 tablet (50 mg total) by mouth 1 (one) time each day. 90 tablet 1 12/14/19 25 Active warfarin (COUMADIN) 5 mg tablet Take 0.5 tablets (2.5 mg total) by mouth 1 (one) time each day. 45 each 04/04/20 25 026 Active warfarin (COUMADIN) 2.5 mg tablet Take 1 tablet (2.5 mg total) by mouth 1 (one) time each day with dinner. 90 tablet 1 12/14/19 25 025 Discontinued warfarin (COUMADIN) 5 mg tablet Take 0.5 tablets (2.5 mg total) by mouth 1 (one) time each day with dinner. 025 Discontinued(Re order) Active Problems Problem Noted Date Diagnosed Date [...] Encounters Date Type Department Care Team Description 04/04/2025 4:30 PM EST Office Visit Adult Medicine [address] [phone] Laura Mensah MD Primary hypertension (Primary Dx); Atrial fibrillation, unspecified type (CMS/HCC V24, CMS/HCC V28) 03/26/2025 Results Follow-Up Adult Medicine [address] [phone] Laura Mensah MD 03/01/2025 Results Follow-Up Adult Medicine [address] [phone] Laura Mensah MD 02/28/2025 8:06 AM EDT - 02/28/2025 11:59 PM EDT Hospital Encounter Radiology Department - [address] [phone] Hemangioma of spleen Discharge Disposition: Home or [...] Sign Reading Time Taken Comments Blood Pressure 112/63 04/04/2025 4:57 PM EST Pulse 76 04/04/2025 4:27 PM EST Temperature 35.6 C (96 F) 04/04/2025 4:27 PM EST Respiratory Rate 16 11/23/2024 1:48 PM EDT Oxygen Saturation 98% 09/24/2024 2:08 PM EDT Inhaled Oxygen Concentration - - Weight 62.1 kg (137 lb) 04/04/2025 4:27 PM EST Height 157.5 cm (5' 2 ) 04/04/2025 4:27 PM EST Body Mass Index 25.06 04/04/2025 4:27 PM EST Plan of Treatment Upcoming Encounters Date Type Department Care Team (Late st Contact Info) Description 11/26/2025 2:00 PM EDT Office Visit Adult Medicine [facility] [address] [place] [phone] Laura Mensah MD [address] [place] [address] Health Maintenance Due Date Last Done Comments COVID-19 Vaccine (#1) 05/30/2025 [place]po [place] from 12/19/1950 (Patient Refused) Hepatitis C Screening 05/30/2025 [place]po [place] from 04/28/2022 (Patient Refused) Pneumococcal Vaccine: 50+ Years (2 of 2 - PCV) 05/30/2025 09/13/2016 Postponed from 09/13/2017 (Patient Refused) Zoster Vaccines (1 of 2) 05/30/2025 Pos tponed from 1965 (Patient Refused) RSV Immunization Adult Patients (1 - 1-dose 75+ series) 10/28/2025 Postponed from 2021 (Patient Refused) Falls Risk Assessment 11/23/2025 11/23/2024 Medicare Annual Wellness Visit 11/23/2025 11/23/2024 Social Influencers of Health Screening 11/23/2025 11/23/2024 Hypertension/CHF/CAD Annual BMP Blood Test 02/22/2026 02/22/2025, 11/13/2024, 02/29/2024 DTaP,Tdap,and Td Vaccines (3 - Td or Tdap) 02/13/2029 02/13/2019, 02/03/2007 Cholesterol Screening (Lipid Panel) 02/22/2030 02/22/2025, 11/13/2024, 02/29/2024 Osteoporosis Screening (Bone Density Screening) 03/31/2031 03/31/2021, 03/29/2019 Depression Screening Completed 11/23/2024 HIB Vaccines Aged Out No longer eligi ble based on patient's age to complete this topic HPV Vaccines Aged Out No longer eligi ble based on patient's age to complete this topic Hepatitis A Vaccines Aged Out No long er eligible based on patient's age to complete this topic Hepatitis B Vaccines Aged Out No long er eligible based on patient's age to complete this topic IPV Vaccines Aged Out No longer eligi ble based on patient's age to complete this topic Influenza Vaccine Discontinued MMR Vaccines Aged Out No longer eligi [...] Associated Diagnosis Comments US ABDOMEN LIMITED Routine 02/28/2025 8: 42 AM EDT Hemangioma of spleen CBC WITH AUTO DIFFERENTIAL Routine 02/22/2025 8:42 AM EDT Routine general medical examination at a health care facility LIPID PANEL WITH REFLEX TO DIRECT LDL Routine 02/22/2025 8:42 AM EDT Routine general medical examination at a health care facility THYROID STIMULATING HORMONE WITH REFLEX TO FREE T4 AND FREE T3 Routine 02/22/2025 8:42 AM EDT Routine general medical examination at a health care facility CBC AND DIFFERENTIAL Routine 02/22/2025 8:42 AM EDT Routine general medical examination at a health care facility BASIC METABOLIC PANEL Routine 02/22/2025 8:42 AM EDT Routine general medical examination at a health care facility QUINTON DEXA AXIAL SKELETON Routine 03/31/2021 11:16 AM EDT Encounter for screening for osteoporosis from Last 3 Months or Most Recently Relevant to Health Maintenance Results * US Abdomen Limited (02/28/2025 8:42 AM EDT) Anatomical Region Laterality Modality Body Ultrasound 02/28/2025 10:3 5 AM EDT Impressions 02/28/2025 10:41 AM EDT Stable splenic lesion which probably represents a hemangioma. Recommend continued follow-up in one year. A copy of this report will be provided to the [facility] Program. -------- FINAL REPORT -------- Dictated By: Linh Conrad Dictated Date: 02/28/2025 10:35 ET Assigned Physician: Linh Conrad Reviewed and Electronically Signed By: Linh Conrad Signed Date: 02/28/2025 10:41 ET Workstation ID: [id number] Transcribed By: Self Edit Transcribed Date: 02/28/2025 10:35 ET Narrative 02/28/2025 10:41 AM EDT EXAM: Abdomen ultrasound, limited HISTORY: Follow-up splenic hemangioma. COMPARISON: 08/29/2024 and 03/14/2024 FINDINGS: Sonography performed in the left upper quadrant. Spleen: Normal in size measuring 11.9 cm. No significant change in the ovoid hyperechoic lesion in the central spleen which measures 2.6 x 2.3 x 2.3 cm. No new splenic abnormality. Left kidney: Normal in size measuring 9.7 cm in craniocaudad extent. No hydronephrosis, focal lesions, or shadowing stones. Procedure Note Linh Conrad MD - 02/28/2025 EXAM: Abdomen ultrasound, limited HISTORY: Follow-up splenic hemangioma. COMPARISON: 08/29/2024 and 03/14/2024 FINDINGS: Sonography performed in the left upper quadrant. Spleen: Normal in size measuring 11.9 cm. No significant change in theovoid hyperechoic lesion in the central spleen which measures 2.6 x 2.3 x2.3 cm. No new splenic abnormality. Left kidney: Normal in size measuring 9.7 cm in craniocaudad extent. Nohydronephrosis, focal lesions, or shadowing stones. IMPRESSION: Stable splenic lesion which probably represents a hemangioma. Recommendcontinued follow-up in one year. A copy of this report [facility]. -------- FINAL REPORT -------- Dictated By: Linh Conrad Dictated Date: 02/28/2025 10:35 ET Assigned Physician: Linh Conrad Reviewed and Electronically Signed By: Linh Conrad Signed Date: 02/28/2025 10:41 ET Workstation ID: [id number] Transcribed By: Self Edit Transcribed Date: 02/28/2025 10:35 ET Laura Mensah MD IMG US PROCEDURES Final Res ult * Thyroid stimulating hormone with reflex to free t4 and free t3 (02/22/2025 8:42 AM EDT) TSH 2.22 0.40 - 4.00 mcIU/mL LAB CHEMISTRY METHOD 02/22/2025 11:28 AM EDT [facility] Blood Venous blood specimen / Unknown Venipuncture / Unknown 02/22/2025 8:42 AM EDT 02/22/2025 8:42 AM EDT Laura Mensah MD LAB BLOOD ORDERABLES Final Result [facility] [address] [place] [address], [place] [phone] * Lipid panel with reflex to direct LDL (02/22/2025 8:42 AM EDT) Cholesterol 154 0 - 200 mg/dL LAB CHEMISTRY METHOD 02/22/2025 10:57 AM EDT [facility] Triglycerides 75 0 - 150 mg/dL LAB CHEMISTRY METHOD 02/22/2025 10:57 AM EDT [facility] HDL 60 >=40 mg/dL LAB CHEMISTRY METHOD 02/22/2025 10:57 AM [facility] LDL Calculated 79 0 - 100 mg/dL LAB CHEMISTRY METHOD 02/22/2025 10:57 AM EDT [facility] Comment:Estimated LDL Calcul ated using equation: Total cholesterol - HDL cholesterol - (Triglycerides/5) VLDL Cholesterol Star 15 mg/dL LAB CHEMISTRY METHOD 02/22/2025 10:57 AM [facility] Non HDL Chol. (LDL+VLDL) 94 <145 mg/dL LAB CHEMISTRY METHOD 02/22/2025 10:57 AM [facility] Chol/HDL Ratio 2.6 0.0 - 4.4 LAB CHEMISTRY METHOD 02/22/2025 10:57 AM T [facility] Blood Venous blood specimen / Unknown Venipuncture / Unknown 02/22/2025 8:42 AM EDT 02/22/2025 8:42 AM EDT us Laura Mensah MD LAB BLOOD ORDERABLES Final Result [facility] [address] [place] [address], * CBC auto differential (02/22/2025 8:42 AM EDT) WBC 5.3 4.8 - 10.8 K/mcL LAB HEMETOLOGY METHOD 02/22/2025 11:05 AM [facility] RBC 4.40 3.80 - 4.80 M/mcL LAB HEMETOLOGY METHOD 02/22/2025 11:05 AM [facility] Hemoglobin 12.4 11.5 - 16.0 g/dL LAB HEMETOLOGY METHOD 02/22/2025 11:05 AM [facility] Hematocrit 38.2 35.0 - 47.0 % LAB HEMETOLOGY METHOD 02/22/2025 11:05 AM [facility] MCV 86.6 79.0 - 98.0 FL LAB HEMETOLOGY METHOD 02/22/2025 11:05 AM [facility] MCH 28.1 27.0 - 32.0 pcg LAB HEMETOLOGY METHOD 02/22/2025 11:05 AM [facility] MCHC 32.5 32.0 - 37.0 g/dL LAB HEMETOLOGY METHOD 02/22/2025 11:05 AM [facility] RDW 12.9 11.0 - 15.0 % LAB HEMETOLOGY METHOD 02/22/2025 11:05 AM [facility] Platelets 142 130 - 400 K/mcL LAB HEMETOLOGY METHOD 02/22/2025 11:05 AM [facility] MPV 9.1 7.0 - 11.0 FL LAB HEMETOLOGY METHOD 02/22/2025 11:05 AM [facility] NRBC 0.0 <1.0 % LAB HEMETOLOGY METHOD 02/22/2025 11:05 AM [facility] NRBC Absolute 0.00 <0.10 K/mcL LAB HEMETOLOGY METHOD 02/22/2025 11:05 AM [facility] Neutrophils Relative 67.0 % LAB HEMETOLOGY METHOD 02/22/2025 11:05 AM [facility] Lymphocytes Relative 25.5 % LAB HEMETOLOGY METHOD 02/22/2025 11:05 AM [facility] Monocytes Relative 5.7 % LAB HEMETOLOGY METHOD 02/22/2025 11:05 AM [facility] Eosinophils Relative 1.0 % LAB HEMETOLOGY METHOD 02/22/2025 11:05 AM [facility] Basophils Relative 0.6 % LAB HEMETOLOGY METHOD 02/22/2025 11:05 AM [facility] Immature Granulocytes Relative 0.2 % LAB HEMETOLOGY METHOD [facility] Neutrophils Absolute 3.52 1.50 - 7.00 K/mcL LAB HEMETOLOGY METHOD 02/22[facility]2025 [facility] Lymphocytes Absolute 1.34 1.00 - 5.00 K/mcL LAB HEMETOLOGY METHOD 02/22/2025 11:05 AM [facility] Monocytes Absolute 0.30 0.20 - 1.00 K/mcL LAB HEMETOLOGY METHOD 02/22/2025 11:05 AM [facility] Eosinophils Absolute 0.05 0.00 - 0.50 K/mcL LAB HEMETOLOGY METHOD 02/22/2025 11:05 AM [facility] Basophils Absolute 0.03 0.00 - 0.20 K/mcL LAB HEMETOLOGY METHOD 02/22/2025 11:05 AM [facility] Immature Granulocytes Absolute 0.01 0.00 - 0.03 K/mcL LAB HEMETOLOGY METHOD 02/22/2025 11:05 AM [facility] Blood Venous blood specimen / Unknown Venipuncture / Unknown 02/22/2025 8:42 AM EDT 02/22/2025 8:42 AM EDT us Laura Mensah MD LAB BLOOD ORDERABLES Final Result [facility] [address] [place] [address], * Basic metabolic panel (02/22/2025 8:42 AM EDT) Sodium 137 133 - 145 mmol/L LAB CHEMISTRY METHOD 02/22/2025 10:57 AM [facility] Potassium 3.7 3.5 - 5.5 mmol/L LAB CHEMISTRY METHOD 02/22/2025 10:57 AM [facility] Chloride 101 96 - 110 mmol/L LAB CHEMISTRY METHOD 02/22/2025 10:57 AM [facility] CO2 32 21 - 32 mmol/L LAB CHEMISTRY METHOD 02/22/2025 10:57 AM [facility] Anion Gap 4 3 - 11 LAB CHEMISTRY METHOD 02/22/2025 10:57 AM [facility] Glucose 93 70 - 100 mg/dL LAB CHEMISTRY METHOD 02/22/2025 10:57 AM [facility] BUN 14 5 - 25 mg/dL LAB CHEMISTRY METHOD 02/22/2025 10:57 AM [facility] Creatinine 0.66 0.50 - 1.10 mg/dL LAB CHEMISTRY METHOD 02/22/2025 10:57 AM [facility] eGFR 90 >=60 mL/min/1. 73m2 LAB CHEMISTRY METHOD 02/22/2025 10:57 AM [facility] Comment:Calculation based on the Chronic Kidney Disease Epidemiology Collaboration (CKD-EPI) equation refit without adjustment for race. BUN/Creatinine Ratio 21.2 LAB CHEMISTRY METHOD 02/22/2025 10:57 AM [facility] Calcium 9.0 8.5 - 10.5 mg/dL LAB CHEMISTRY METHOD 02/22/2025 10:57 AM [facility] Blood Venous blood specimen / Unknown Venipuncture / Unknown 02/22/2025 8:42 AM EDT 02/22/2025 8:42 AM EDT us Laura Mensah MD LAB BLOOD ORDERABLES Final Result [facility] [address] [place] [address], * QUINTON DEXA AXIAL SKELETON (03/31/2021 11:16 AM EDT) Anatomical Region Laterality Modality Mammography 03/31/2021 10:4 0 AM EDT Narrative 03/31/2021 11:16 AM EDT [facility] Diagnostic Imaging Department [address] [place] [address] Patient: JONAS LYNCH /Age/Sex: 1945 - 75 - F Unit#: [id number] Location/Status: SPDIMAM/REG CLI Mnem[facility] Ordering Physician: MANI DONOHUE MD [...] probability of hip fracture of 3.5%. Code 95495 Dictating Physician: MARCELA EVANS MD Electronically Signed by: MARCELA EVANS MD Dic Date/Time: 03/31/211114 Sign date/Time: 03/31/21 111 Procedure Note Marcela Evans MD - 05/19/2022 [facility] Diagnostic Imaging Department [address] [place] [address] Patient: JONAS LYNCH D.O.B./Age/Sex: 1945 - 75 - F Unit#: [id number] Location/Status: [facility]/REG CLI Mnemonic[facility] Ordering Physician: MANI DONOHUE MD [place] Dexa Axial Skeleton - 03/31/219 HISTORY: The patient is a 75-year-old postmenopausal [...] density of the femurs bilaterally is 0.748 gm/re4ykzar is 74% of that of young normals [...] probability of hip fracture of 3.5%. Code 02791 Dictating Physician: MARCELA EVANS MD Electronically Signed by: MARCELA EVANS MD Dic Date/Time: 03/31/21 1115 Sign date/Time: 03/31/21 1116 Mani Donohue MD IM BI PROCEDURES Final Result from Last 3 Months or Most Recently Relevant to Health Maintenance Insurance MEDICA[place] [employer] [employer] Care Teams Distance Learning Administrator Relationship Specialty Start Date End Date Laura Mensah MD [address] [place] [address] PCP - General 08/03/23
== END 2025-04-16 13:21 | disposition home or self-care (01) ==
LOC: HO.ACS 13:03
PROVIDERS: PCP Student in an Organized Health Care Education/Training Program; Visit Provider Internal Medicine Medical Oncology
DX: Z79.01 Long term (current) use of anticoagulants (principal)

== ENCOUNTER → 2025-04-16 13:03 | Outpatient (BNVA) | payer OTHER, SELFPAY | PROVIDERS: PCP Student in an Organized Health Care Education/Training Program; Visit Provider Internal Medicine Medical Oncology | DX: I48.20 Chronic atrial fibrillation, unspecified (principal); Z51.81 Encounter for therapeutic drug level monitoring; Z79.01 Long term (current) use of anticoagulants | CPT/HCPCS: 85610; 99211 ==

== ENCOUNTER 2025-05-14 13:01 | Outpatient (AMB) | payer OTHER, SELFPAY ==
[2025-05-14 13:16] LABS: Prothrombin Time Whole Bld POC 23.8 sec (11.1-13.5); ~PT, ~INR - Anti Coag Clinic 2.0 (0.9-1.1)
--- NOTE | 2025-05-14 13:23 | MHC.OFFVISCO ---
Intake Intake Visit Reasons: Anticoagulation Allergies pantoprazole (From Protonix) Allergy (Severe, Verified 05/14/25 13:08) Palpitations Medication List - Last Reconciled 05/14/25 by Beatriz Morrison RN cholecalciferol (vitamin D3) 25 mcg PO DAILY docusate sodium 100 mg PO BID PRN hydrochlorothiazide 12.5 mg PO DAILY lisinopril-hydrochlorothiazide 10-12.5 mg 1 tab PO DAILY metoprolol succinate ER (Toprol XL) 75 mg PO DAILY warfarin See Protocol 5 mg orally 2.5mg x 5 days / week; Nursing Note INR: 2.0 in therapeutic range of 2-3 Medications and supplements reviewed No changes in health, diet, medications, or supplements, Denies any signs and symptoms of bleeding or bruising or clotting. Bleeding, bruising, clotting discussed Nutritional guidance given to avoid greens X 2 days and to have a serving of foods that raise the INR. Dose: 2.5mg X 5 days and no warfarin on Tue and Tue F/U INR: 4 weeks Patient verbalizes understanding of instructions given Anti-Coag Initial Assessment Social Hx Patient Tobacco Use Status: Never used Tobacco alcohol intake: never Cardiovascular Hx: HTN, Arrhythmias, Rheumatic Fever, Varicose Veins and Other Lung Disease HX: DVT/PE Musculoskeletal Hx: Other GI Hx: Hemorrhoids and Other Cancer HX: No Psych. Illness/Depression: Yes (pt states no - md hx states yes ) Coding Level of Care Code Est Patient Level 1 Diagnoses Current use of anticoagulant therapy Z79.01 Assessment & Plan Assessment & Plan (1) Current use of anticoagulant therapy: Code(s): Z79.01 - USP (current) use of anticoagulants Category: Medical
--- OUTSIDE RECORDS SUMMARY | 2025-05-14 16:55 | XMS_ITS | Clinical Summary ---
Author Organization [facility] [address] [place] [address] [place] [phone] Phone Care Team Providers Care Spar Machine Operator Name Role Phone Laura Mensah MD Primary Care Provider [phone] Allergies Active Allergy Reactions Criticality Noted Date Comments Amlodipine Besylate 08/18/2022 Pantoprazole 06/10/2006 Medications cholecalciferol , vitamin D3, 350 mcg (14,000 unit) wafer Take by mouth. Active loratadine (CLARITIN) 10 mg tablet Take 1 tablet (10 mg total) by mouth 1 (one) time each day if needed for allergies. 90 each 09/05/2024 Active lisinopriL (PRINIVIL,ZESTR IL) 10 mg tablet Take 1 tablet (10 mg total) by mouth 1 (one) time each day. 90 each 1 12/13/2024 6 Active hydroCHLOROthia zide 12.5 mg tablet Take 1 tablet (12.5 mg total) by mouth 1 (one) time each day. 90 each 1 12/13/2024 6 Active metoprolol succinate (TOPROL-XL) 50 mg 24 hr tablet Take 1 tablet (50 mg total) by mouth 1 (one) time each day. 90 tablet 1 12/13/2024 Active warfarin (COUMADIN) 5 mg tablet Take 0.5 tablets (2.5 mg total) by mouth 1 (one) time each day. 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 08/08/2023 Sleep disorder 08/08/2023 Vitamin D deficiency 08/08/2023 Encounters Date Type Department Care Team Description 05/03/2025 Telephone Adult Medicine [address] [phone] Laura Mensah MD 04/04/2025 4:30 PM EST Office Visit Adult [address] [phone] Laura Mensah MD Primary hypertension (Primary Dx); Atrial fibrillation, unspecified type (CMS/HCC V24, CMS/HCC V28) 03/26/2025 Results Follow-Up Adult [address] [phone] Laura Mensah MD 03/01/2025 Results Follow-Up [address] [phone] Laura Mensah MD 02/28/2025 8:06 AM EDT - 02/28/2025 11:59 PM EDT Hospital Encounter Radiology Department - [address] [phone] Hemangioma of spleen Discharge Disposition: Home or [...] Care Team (Late st Contact Info) Description 05/16/2025 12:30 PM EST Consult Adult Medicine [facility] [address] [place] [phone] Laura Mensah MD [address] [place] [address] 11/26/2025 2:00 PM EDT Office Visit Adult Medicine [facility] [address] [place] [address] Laura Mensah MD [address] [place] [address] Health Maintenance Due Date Last Done Comments [...] this report will be provided to the [facility]. -------- FINAL REPORT -------- Dictated By: Linh Conrad Dictated Date: 02/28/2025 10:35 ET Assigned Physician: Linh Conrad Reviewed and Electronically Signed By: Linh Conrad Signed Date: 02/28/2025 10:41 ET Workstation ID: [id number] Transcribed By: Self Edit Transcribed Date: 02/28/2025 [...] this report will be provided to the [facility] FINDProgram. -------- FINAL REPORT -------- Dictated By: Linh Conrad Dictated Date: 02/28/2025 10:35 ET Assigned Physician: Linh Conrad Reviewed and Electronically Signed By: Linh Conrad Signed Date: 02/28/2025 10:41 ET Workstation ID: [id number] Transcribed By: Self Edit Transcribed Date: 02/28/2025 10:35 ET us Laura Mensah MD IMG US PROCEDURES Final Res ult * Thyroid stimulating hormone with reflex to free t4 and free t3 (02/22/2025 8:42 AM EDT) Pathologist [facility] TSH 2.22 0.40 - 4.00 mcIU/mL LAB CHEMISTRY METHOD 02/22/2025 11:28 AM EDT [facility] Blood Venous blood specimen / Unknown Venipuncture / Unknown 02/22/2025 8:42 AM EDT 02/22/2025 8:42 AM EDT Laura Mensah MD LAB BLOOD ORDERABLES Final Result [facility] [address] [place] [address], [place] [phone] * Lipid panel with reflex to direct LDL (02/22/2025 8:42 AM EDT) [facility] Cholesterol 154 0 - 200 mg/dL LAB CHEMISTRY METHOD 02/22/2025 10:57 AM [facility] Triglycerides 75 0 - 150 mg/dL LAB CHEMISTRY METHOD 02/22/2025 10:57 AM [facility] HDL 60 >=40 mg/dL LAB CHEMISTRY METHOD 02/22/2025 10:57 AM [facility] LDL Calculated 79 0 - 100 mg/dL LAB CHEMISTRY METHOD 02/22/2025 10:57 AM [facility] Comment:Estimated LDL Calcul ated using equation: Total cholesterol - HDL cholesterol - (Triglycerides/5) VLDL Cholesterol Star 15 mg/dL LAB CHEMISTRY METHOD 02/22/2025 10:57 AM [facility] Non HDL Chol. (LDL+VLDL) 94 <145 mg/dL LAB CHEMISTRY METHOD 02/22/2025 10:57 AM [facility] Chol/HDL Ratio 2.6 0.0 - 4.4 LAB CHEMISTRY METHOD 02/22/2025 10:57 AM [facility] Blood Venous blood specimen / Unknown Venipuncture / Unknown 02/22/2025 8:42 AM EDT 02/22/2025 8:42 AM EDT us Laura Mensah MD LAB BLOOD ORDERABLES Final Result [facility] [address] [place] [address], * CBC auto differential (02/22/2025 8:42 AM EDT) WBC 5.3 4.8 - 10.8 K/mcL LAB HEMETOLOGY METHOD 02/22/2025 11:05 AM [facility] RBC 4.40 3.80 - 4.80 M/mcL LAB HEMETOLOGY METHOD 02/22/2025 11:05 AM [facility] Hemoglobin 12.4 11.5 - 16.0 g/dL LAB HEMETOLOGY METHOD 02/22/2025 11:05 AM [facility] Hematocrit 38.2 35.0 - 47.0 % LAB HEMETOLOGY METHOD 02/22/2025 11:05 AM [facility] MCV 86.6 79.0 - 98.0 FL LAB HEMETOLOGY METHOD 02/22/2025 11:05 AM [facility] MCH 28.1 27.0 - 32.0 pcg LAB HEMETOLOGY METHOD 02/22/2025 11:05 AM [facility] MCHC 32.5 32.0 - 37.0 g/dL LAB HEMETOLOGY METHOD 02/22/2025 11:05 AM [facility] RDW 12.9 11.0 - 15.0 % LAB HEMETOLOGY METHOD 02/22/2025 11:05 AM [facility] Platelets 142 130 - 400 K/mcL LAB HEMETOLOGY METHOD 02/22/2025 11:05 AM [facility] MPV 9.1 7.0 - 11.0 FL LAB HEMETOLOGY METHOD 02/22/2025 11:05 AM [facility] NRBC 0.0 <1.0 % LAB HEMETOLOGY METHOD 02/22/2025 11:05 AM [facility] NRBC Absolute 0.00 <0.10 K/mcL LAB HEMETOLOGY METHOD 02/22/2025 11:05 AM [facility] Neutrophils Relative 67.0 % LAB HEMETOLOGY METHOD 02/22/2025 11:05 AM [facility] Lymphocytes Relative 25.5 % LAB HEMETOLOGY METHOD 02/22/2025 11:05 AM [facility] Monocytes Relative 5.7 % LAB HEMETOLOGY METHOD 02/22/2025 11:05 AM [facility] Eosinophils Relative 1.0 % LAB HEMETOLOGY METHOD 02/22/2025 11:05 AM [facility] Basophils Relative 0.6 % LAB HEMETOLOGY METHOD 02/22/2025 11:05 AM [facility] Immature Granulocytes Relative 0.2 % LAB HEMETOLOGY METHOD 02/22/2025 11:05 AM [facility] Neutrophils Absolute 3.52 1.50 - 7.00 K/mcL LAB HEMETOLOGY METHOD 02/22/2025 11:05 AM [facility] Lymphocytes Absolute 1.34 1.00 - 5.00 K/mcL LAB HEMETOLOGY METHOD 02/22/2025 11:05 AM [facility] Monocytes Absolute 0.30 0.20 - 1.00 K/mcL LAB HEMETOLOGY METHOD 02/22/2025 11:05 AM [facility] Eosinophils Absolute 0.05 0.00 - 0.50 K/mcL LAB HEMETOLOGY METHOD 02/22/2025 11:05 AM [facility] Basophils Absolute 0.03 0.00 - 0.20 K/mcL LAB HEMETOLOGY METHOD 02/22/2025 11:05 AM [facility] Immature Granulocytes Absolute 0.01 0.00 - 0.03 K/mcL LAB HEMETOLOGY METHOD 02/22/2025 11:05 AM [facility] Blood Venous blood specimen / Unknown Venipuncture / Unknown 02/22/2025 8:42 AM EDT 02/22/2025 8:42 AM EDT us Laura Mensah MD LAB BLOOD ORDERABLES Final Result [facility] [address] [place] [address], * Basic metabolic panel (02/22/2025 8:42 AM EDT) Sodium 137 133 - 145 mmol/L LAB CHEMISTRY METHOD 02/22/2025 10:57 AM [facility] Potassium 3.7 3.5 - 5.5 mmol/L LAB CHEMISTRY METHOD 02/22/2025 10:57 AM [facility] Chloride 101 96 - 110 mmol/L LAB CHEMISTRY METHOD 02/22/2025 10:57 AM [facility] CO2 32 21 - 32 mmol/L LAB CHEMISTRY METHOD 02/22/2025 10:57 AM [facility] Anion Gap 4 3 - 11 LAB CHEMISTRY METHOD 02/22/2025 10:57 AM [facility] Glucose 93 70 - 100 mg/dL LAB CHEMISTRY METHOD 02/22/2025 10:57 AM [facility] BUN 14 5 - 25 mg/dL LAB CHEMISTRY METHOD 02/22/2025 10:57 AM [facility] Creatinine 0.66 0.50 - 1.10 mg/dL LAB CHEMISTRY METHOD 02/22/2025 10:57 AM [facility] eGFR 90 >=60 mL/min/1. 73m2 LAB CHEMISTRY METHOD 02/22/2025 10:57 AM [facility] Comment:Calculation based on the Chronic Kidney Disease Epidemiology Collaboration (CKD-EPI) equation refit without adjustment for race. BUN/Creatinine Ratio 21.2 LAB CHEMISTRY METHOD 02/22/2025 10:57 AM [facility] Calcium 9.0 8.5 - 10.5 mg/dL LAB CHEMISTRY METHOD 02/22/2025 10:57 AM [facility] Blood Venous blood specimen / Unknown Venipuncture / Unknown 02/22/2025 8:42 AM EDT 02/22/2025 8:42 AM EDT us Laura Mensah MD LAB BLOOD ORDERABLES Final Result [facility] [address] [place] [address], * [place] DEXA AXIAL SKELETON (03/31/2021 11:16 AM EDT) Anatomical Region Laterality Modality Mammography 03/31/2021 10:4 0 AM EDT Narrative 03/31/2021 11:16 AM EDT [facility] Diagnostic Imaging Department [address] [place] [address] Patient: JONAS LYNCH./Age/Sex: 1945 - 75 - F Unit#: [id number] [facility] Ordering Physician: MANI DONOHUE MD [facility] Dexa Axial Skeleton - 03/31/211105 [...] probability of hip fracture of 3.5%. Code 54730 Dictating Physician: MARCELA EVANS MD Electronically Signed by: MARCELA EVANS MD Dic Date/Time: 03/31/211114 Sign date/Time: 03/31/21 111 Procedure Note Marcela Evans MD - 05/19/2022 [facility] Diagnostic Imaging Department [address] [place] [address] Patient: JONAS LYNCHO.B./Age/Sex: 1945 - 75 - F Unit#: [id number] Location/Status: [facility]/REG CLI Mnemonic[facility] Ordering Physician: MANI DONOHUE MD [place] Dexa Axial Skeleton - 11/02/21 - 1106 HISTORY: The patient is a [...] density of the femurs bilaterally is 0.748 gm/[id number] is 74% of that of young normals [...] probability of hip fracture of 3.5%. Code 02284 Dictating Physician: MARCELA EVANS MD Electronically Signed by: MARCELA EVANS MD Dic Date/Time: 03/31/21 1115 Sign date/Time: 03/31/21 1116 Mani Donohue MD IMG BI PROCEDURES Final Result from Last 3 Months or Most Recently Relevant to Health Maintenance Insurance MEDICA[place] Care Teams Spar Machine Operator Relationship Specialty Start Date End Date Laura Mensah MD [address] [place] [address] PCP - General 08/03/23
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
--- OUTSIDE RECORDS SUMMARY | 2025-05-14 16:55 | XMS_ITS | Encounter Summary ---
Author Organization [facility] Address [address] [place] [address] Care Team Providers Care Comber Setter Name Role Phone Laura Mensah MD Primary Care Provider Encounter Details Date Type Department Care Team (Late st Contact Info) Description 03/26/2025 Results Follow-Up Adult Medicine [address] [phone] Laura Mensah MD [address] [place] [address] Social History Tobacco Use Types Packs/Day Years Used Date Smoking Tobacco: Never Assessed Comments Unknown Sex and Gender Information Value Date Recorded Sex Assigned at Not on file Legal Sex Female 5:12 PM EST Gender Identity Not on file Sexual Orientation Not on file documented as of this encounter Plan of Treatment Upcoming Encounters Date Type Department Care Team (Late Contact Info) Description 05/16/2025 12:30 PM EST Consult Adult Medicine [address] [phone] Laura Mensah MD [address] [place] [address] 11/26/2025 2:00 PM EDT Office Visit Adult [address] [phone] Laura Mensah MD [address] [place] [address] documented as of this encounter Visit Diagnoses Not on filedocumented in this encounter Additional Health Concerns Assessment Noted Time PHQ-9 Depression Total Score: 0 11/24/19 25 1:52 PM EDT documented as of this encounter Care Teams Comber Setter Relationship Specialty Start Date End Date Laura Mensah MD [address] [place] [address] PCP - General 08/03/23 documented as of this encounter
== END 2025-05-14 13:26 | disposition home or self-care (01) ==
LOC: HO.ACS 13:01
PROVIDERS: PCP Student in an Organized Health Care Education/Training Program; Visit Provider Internal Medicine Medical Oncology
DX: Z79.01 Long term (current) use of anticoagulants (principal)

== ENCOUNTER → 2025-05-14 13:01 | Outpatient (BNVA) | payer OTHER, SELFPAY | PROVIDERS: PCP Student in an Organized Health Care Education/Training Program; Visit Provider Internal Medicine Medical Oncology | DX: I48.20 Chronic atrial fibrillation, unspecified (principal) | CPT/HCPCS: 85610; 99211 ==